=== PATIENT | female | born 1970 | race Caucasian/White ===

== ENCOUNTER → 2018-04-07 14:55 | Outpatient (CLI) | payer OTHER, MEDICAID, SELFPAY ==
--- NOTE | 2018-04-07 | DI.RAD.S_ITS ---
PROCEDURE: XR LUMBAR SPINE 2-3V INDICATIONS: BACK PAIN TECHNIQUE: 3 views of the lumbar spine were acquired. COMPARISON: None. FINDINGS: Bones: Transitional anatomy with 4 [id number] vertebrae and sacralization of the L5 vertebral body. There is normal bony alignment. There is approximately 16? of convex right thoracolumbar spine scoliosis. No vertebral body compression fractures. No suspicious bony lesions. Severe L4-L5 degenerative changes are noted. Moderate L4-L5 facet arthropathy. Soft tissues: Overlying bowel gas pattern is normal. No suspicious soft tissue calcifications. IMPRESSION: 1. Transitional anatomy with 4 lumbar type nonrib-bearing vertebral bodies and sacralization of the L5 vertebral body. 2. Convex right of lumbar spine scoliosis. 3. L4-L5 degenerative disc disease and facet arthropathy. Dictated by: Karen Beckham MD, PhD on 04/07/2018 at 14:31 Approved by: Karen Beckham MD, PhD on 04/07/2018 at 14:38
== END ==
PROVIDERS: Visit Provider Family Medicine
DX: M54.5 Low back pain (principal); M41.86 Other forms of scoliosis, lumbar region; M51.36 Other intervertebral disc degeneration, lumbar region; M47.817 Spondylosis without myelopathy or radiculopathy, lumbosacral region; M43.27 Fusion of spine, lumbosacral region
CPT/HCPCS: 72100

== ENCOUNTER 2019-11-15 19:58 | Emergency (ER) | payer OTHER, MEDICAID, SELFPAY ==
[2019-11-15 20:10] VITALS: BP 108/74; PULSE 76; RESP 18; TEMP 37.2; O2SAT 97
--- NOTE | 2019-11-15 20:25 | DI.CT.S_ITS ---
PROCEDURE: CT LUMBAR SPINE WO CON INDICATIONS: fell off a horse w/o helmet, lumbar and pelvis pain TECHNIQUE: Noncontrast 3 mm thick sections acquired from the T12 level to the sacrum. Sagittal and coronal reformats were constructed. For radiation dose reduction, the following was used: automated exposure control. COMPARISON: [facility], CT, ABDOMEN/PELVIS WITH CONTRAST, 11/01/2015, 16:40. [facility], CR, XR LUMBAR SPINE 2-3V, 04/07/2018, 14:38. FINDINGS: Image quality: Excellent. Bones: There is normal bony alignment. No acute vertebral body compression fractures. No suspicious lytic or blastic bony lesions. Central spinal caliber is of normal overall caliber. No pars defects. Note is made of a moderate to moderately severe degree of degenerative disc disease at L4-5 and L5-S1. No compression fracture is associated. Soft tissues: No retroperitoneal masses or hematomas. Visualized aorta is normal in caliber. IMPRESSION: No trauma found. Moderate to moderately severe low lumbosacral spine degenerative disc disease without subluxation. Dictated by: Atul Brady M.D. on 11/15/2019 at 21:17 Approved by: Atul Brady M.D. on 11/15/2019 at 21:19
--- NOTE | 2019-11-15 20:25 | DI.RAD.S_ITS ---
PROCEDURE: XR HUMERUS LT 2V INDICATIONS: fell off a horse w/o helmet, left upper arm pain, hematoma TECHNIQUE: 2 views of the humerus were acquired. COMPARISON: None. FINDINGS: Bones: No fractures or dislocations. No suspicious bony lesions. Soft tissues: No suspicious soft tissue calcifications. IMPRESSION: No trauma found. Dictated by: Atul Brady M.D. on 11/15/2019 at 21:17 Approved by: Atul Brady M.D. on 11/15/2019 at 21:17
--- NOTE | 2019-11-15 20:25 | DI.CT.S_ITS ---
PROCEDURE: CT CERVICAL SPINE WO CON INDICATIONS: fell off a horse w/o helmet, mid cervical spine tenderness TECHNIQUE: Noncontrast 3 mm thick sections acquired from the skull base to the T4 level. Sagittal and coronal reformats were then constructed. For radiation dose reduction, the following was used: automated exposure control, adjustment of mA and/or kV according to patient size. COMPARISON: [facility], , CHEST 2 VIEW, 10/18/2015, 12:18. FINDINGS: Image quality: Excellent. Bones: No fractures or dislocations. Visualized superior ribs are intact. Soft tissues: Prevertebral soft tissues are normal in thickness. No paravertebral hematomas. No apical pneumothoraces. IMPRESSION: No trauma found. Dictated by: Atul Brady M.D. on 11/15/2019 at 21:19 Approved by: Atul Brady M.D. on 11/15/2019 at 21:21
--- NOTE | 2019-11-15 20:25 | DI.CT.S_ITS ---
PROCEDURE: CT HEAD/BRAIN WO CON INDICATIONS: fell off a horse w/o helmet, blurred vision TECHNIQUE: Noncontrast 4.5 mm thick angled axial sections acquired from the foramen magnum to the vertex, with coronal and sagittal reformats. For radiation dose reduction, the following was used: automated exposure control, adjustment of mA and/or kV according to patient size. COMPARISON: None. FINDINGS: Image quality: Excellent. CSF spaces: Basal cisterns are patent. No extra-axial fluid collections. Ventricles are normal in size and shape. Brain: No midline shift. No intracranial masses or hemorrhage. Gutierrez-white matter interface is normal. Skull and face: Calvarium and visualized facial bones are intact, without suspicious lesions. Sinuses: Visualized sinuses and mastoids are clear. IMPRESSION: No fracture found, no brain injury identified. No intracranial hemorrhage. The source of blurred vision is not seen. Dictated by: Atul Brady M.D. on 11/15/2019 at 20:58 Approved by: Atul Brday M.D. on 11/15/2019 at 20:58
--- NOTE | 2019-11-15 20:33 | ED.HEATRA ---
HPI - Head Injury <AMY Guerrero - Last Filed: 11/15/19 22:17> General Chief complaint: Head Injury Stated complaint: possible concussion Time Seen by Provider: 11/15/19 20:06 Source: patient Mode of arrival: Wheelchair Limitations: no limitations History of Present Illness HPI Narrative: This is a 49 year female, nonsmoker, who presents to ED with mother after she fell off a horse which is about 2 ft. height at 1830 tonight while on helmeted. Patient is not on anticoagulants. Patient landed on her left side to avoid falling directly on her back and she has history of chronic back pain and failed back surgery in the past. Patient denies losing consciousness but reports blurred vision and mid neck tenderness. Patient denies vomiting but reports nausea. Patient also reports left upper arm discomfort with bruise. She reports severe back pain and hip and pelvis pain. Patient reports after she fell off the horse, her horse picked her up and carried her to home to the back and she called help and her mother assist into home. Patient daily takes methadone, clonazepam. LMP about 1.5 months ago and states it has been irregular. Patient states no chance for and declined urine test prior x-ray/CT test. Related Data Home Medications Medication Instructions Recorded Confirmed CARISOPRODOL (Soma) 0 PO * [facility] DOSE/FREQUENCY #0 08/20/07 Oxycodone (Oxycontin) 0 PO * UK DOSE/FREQUENCY #0 08/20/07 Oxycodone (Roxicodone) 0 PO * [place] DOSE/FREQUENCY #0 08/20/07 Allergies Allergy/AdvReac Type Severity Reaction Status Date / Time cortisone [CORTISONE] Allergy Unknown UNABLE TO Unverified 09/15/17 13:10 SLEEP, GETS CRAZY Sulfa (Sulfonamide Allergy Unknown SORES IN Unverified 09/15/17 13:10 Antibiotics) THE MOUTH [SULFA (SULFONAMIDE ANTIBIOTICS)] Review of Systems <AMY Guerrero Last Filed: 11/15/19 22:17> Review of Systems Narrative: General: Denies fever, chills, fatigue, malaise, sweats. HEENT: Denies sinus pain, ear pain, sore throat, difficulty swallowing, dizziness. Respiratory: Denies dyspnea, cough, wheezing, hemoptysis, sputum. Cardiovascular: Denies chest pain, palpitations, orthopnea, edema. Gastrointestinal: Denies (+) nausea, vomiting, abdominal pain, diarrhea, constipation, melena. : Denies dysuria, frequency, incontinence, hematuria, urinary retention. Musculoskeletal: See HPI Skin: Denies rash, skin lesions, or other. Bruise to left deltoid. Neurologic: Reports blurred vision. Denies weakness, headache, numbness, change in speech, confusion, seizures, incoordination. Psychiatric: No concerning psychosocial issues. 12-point review of systems is negative except for those stated above. Patient History <AMY Guerrero - Last Filed: 11/15/19 22:17> Medical History Chronic back pain (Acute) Surgical History Previous back surgery (Acute) Social History Smoking Status: Never smoker Smoking Status: Never smoker Substance Use Type: does not use Exam <AMY Guerrero - Last Filed: 11/15/19 22:17> Narrative Exam Narrative: GEN: Alert, oriented x 3, thin appearing, and in no acute distress. Head: Normal cephalic, atraumatic. No scalp or temporal tenderness, palpable mass or rash. No step-offs. EYES: Pupils are equal, round, and reactive to light and accommodation. Pupil 3 mm bilaterally. Extraocular muscles are intact bilaterally. There is no subconjunctival hemorrhage, exudate and sclera non-icteric. ENT: Bilateral auditory canals without drainage and tympanic membranes clear. Hearing grossly intact. Nose without bleeding, purulent discharge or deviation. Facial sinuses nontender to palpate. Mucous membrane moist, no mucosal lesion. Throat without erythema, tonsillar hypertrophy or exudate. Uvula in midline, airway patent. Neck: Trachea in midline. Tender to palpate mid cervical. No JVD, no step-offs. No masses or thyroid megaly. Supple, non-tender and no meningeal signs. CARDIAC: Normal regular rate and rhythm without murmurs, gallops, or rubs. No chest wall tenderness. No peripheral edema, cyanosis or pallor. Capillary refill is less than 2 seconds. RESPIRATORY: Lungs are clear to auscultate bilaterally. No cough, wheezes, rales, or rhonchi. No stridor, respiratory distress, increase work of breathing, or accessary muscle used. ABD: Abdomen soft, nontender and non-distended. No guarding or rebound tenderness to palpate. Bowel sounds are normal in all 4 quadrants. There is no palpable masses or organomegaly. EXT: Full ROM of all extremities with no loss of sensation, strength, effusion or edema. Tender to palpate left mid upper arm with ecchymosis in left deltoid. SKIN: Warm, dry, pale in skin color. Abrasion in left lumbar region which is tender to palpate BACK: Exquisite discomfort on low back worsening in left side in spinous and paraspinous region. NEUROLOGICAL: Alert and oriented to place, time and person. Sensation and motor function intact bilaterally. No facial droops, dysphasia. PSYCHIATRIC: Good judgement and reason, without hallucinations, abnormal affect or abnormal behaviors during the examination. Initial Vital Signs Initial Vital Signs: Vital Signs Temperature 98.9 F 11/15/19 20:10 Pulse Rate 76 11/15/19 20:10 Respiratory Rate 18 11/15/19 20:10 Blood Pressure 108/74 11/15/19 20:10 Pulse Oximetry 97 11/15/19 20:10 <Kaylynn Cisneros MD - Last Filed: 11/16/19 02:43> Initial Vital Signs Initial Vital Signs: Vital Signs Temperature 98.9 F 11/15/19 20:10 Pulse Rate 76 11/15/19 20:10 Respiratory Rate 18 11/15/19 20:10 Blood Pressure 108/74 11/15/19 20:10 Pulse Oximetry 97 11/15/19 20:10 Scores <AMY Guerrero - Last Filed: 11/15/19 22:17> GCS [place] coma scale eye opening: Spontaneous [place] coma scale verbal response: Orientated [place] coma scale motor response: Obey commands [place] coma scale total score: 15 Nexus Score for C-Spine Focal Neurologic deficit present: No Midline spinal tenderness present: Yes Altered level of conciousness present: No Intoxication present: No Distracting Injury Present: Yes Nexus Criteria for C-spine: 2 PECARN GCS less than or equal to 14, palpable skull fracture or signs of AMS: No LOC, or vomiting, or severe mechanism of injury, or severe headache: Yes Multiple findings or worsening symptoms: Yes Course <Ruel AMY Felix - Last Filed: 11/15/19 22:17> Orders Ordered: ED Orders 11/15/19 20:22 Basic Metabolic Panel Stat Complete Blood Count AUTO DIFF Stat Partial Thromboplastin Time Stat Prothrombin Time INR Stat 11/15/19 20:25 CT cervical spine wo con Stat CT head/brain wo con Stat CT lumbar spine wo con Stat XR humerus LT 2V Stat 11/15/19 20:37 XR hip w pel if done BILAT 2V Stat Discontinued Medications Morphine Sulfate (Morphine) 2 mg IV NOW ONE Stop: 11/15/19 20:33 Last Admin: 11/15/19 20:40 Dose: 2 mg Documented by: JERRY Morphine Sulfate (Morphine) 2 mg IV NOW ONE Stop: 11/15/19 21:58 Last Admin: 11/15/19 22:07 Dose: 2 mg Documented by: YULIANA Ondansetron HCl (Zofran) 4 mg IV NOW ONE Stop: 11/15/19 20:32 Last Admin: 11/15/19 20:44 Dose: 4 mg Documented by: JERRY Vital Signs Vital signs: Vital Signs - 8 hr 11/15/19 20:10 11/15/19 21:11 11/15/19 22:45 Temperature 98.9 F Pulse Rate 76 64 66 Respiratory Rate 18 14 14 Blood Pressure 108/74 122/67 Blood Pressure [Right Arm] 118/71 Pulse Oximetry 97 97 99 <Kaylynn Cisneros MD - Last Filed: 11/16/19 02:43> Orders Ordered: ED Orders 11/15/19 20:22 Basic Metabolic Panel Stat Complete Blood Count AUTO DIFF Stat Partial Thromboplastin Time Stat Prothrombin Time INR Stat 11/15/19 20:25 CT cervical spine wo con Stat CT head/brain wo con Stat CT lumbar spine wo con Stat XR humerus LT 2V Stat 11/15/19 20:37 XR hip w pel if done BILAT 2V Stat Discontinued Medications Morphine Sulfate (Morphine) 2 mg IV NOW ONE Stop: 11/15/19 20:33 Last Admin: 11/15/19 20:40 Dose: 2 mg Documented by: JERRY Morphine Sulfate (Morphine) 2 mg IV NOW ONE Stop: 11/15/19 21:58 Last Admin: 11/15/19 22:07 Dose: 2 mg Documented by: YULIANA Ondansetron HCl (Zofran) 4 mg IV NOW ONE Stop: 11/15/19 20:32 Last Admin: 11/15/19 20:44 Dose: 4 mg Documented by: JERRY Vital Signs Vital signs: Vital Signs - 8 hr 11/15/19 20:10 11/15/19 21:11 11/15/19 22:45 Temperature 98.9 F Pulse Rate 76 64 66 Respiratory Rate 18 14 14 Blood Pressure 108/74 122/67 Blood Pressure [Right Arm] 118/71 Pulse Oximetry 97 97 99 MDM - Head Injury <AMY Guerrero - Last Filed: 11/15/19 22:17> Differential Diagnosis Differential diagnosis: Likely concussion without loss of consciousness, closed head injury and other (C-spine fracture, neck strain, lumbar fracture, lumbar contusion, pelvis contusion, pelvis fracture) Lab Data Result diagrams: 11/15/19 20:22 11/15/19 20:22 Labs: Lab Results 11/15/19 11/15/19 11/15/19 Range/Units 20:22 20:22 20:22 WBC 12.3 H (4.5-11.0) X10^3/uL RBC 3.51 L (4.0-5.2) X10^6/uL Hgb 10.5 L (12.0-16.0) g/dL Hct 31.1 L (36-46) % MCV 88.6 (80-100) fL MCH 29.9 (26-34) PG MCHC 33.7 (30-36) % RDW 13.0 (11.6-14.8) % Plt Count 189 (150-400) X10^3/uL Neut % (Auto) 76.6 H (50-75) % Lymph % (Auto) 15.6 L (25-40) % [place] % (Auto) 4.0 (3-14) % Eos % (Auto) 3.5 (2-4) % Baso % (Auto) 0.3 (0-2) % Neut # (Auto) 9400 H (2151-6123) /uL Lymph # (Auto) 1900 (1844-8803) /uL [place] # (Auto) 500 (0-900) /uL Eos # (Auto) 400 (0-450) /uL Baso # (Auto) 0 (0-100) /uL PT 11.4 (10.1-12.7) SECONDS INR 1.0 (0.9-1.3) APTT 31 (26.4-36.2) SECONDS Sodium 136 L (137-145) mmol/L Potassium 4.1 (3.4-5.1) mmol/L Chloride 101 (98-107) mmol/L Carbon Dioxide 30 (22-32) mmol/L BUN 12 (7-17) mg/dL Creatinine 0.88 (0.52-1.04) mg/dL Estimated GFR > 60.0 (>60) mL/min BUN/Creatinine Ratio 13.6 (6-22) Glucose 120 H (70-100) mg/dL Calcium 9.6 (8.4-10.2) mg/dL [facility] Narrative Medical decision making narrative: Rigid C spine collar has been applied upon arrival to ED during triage due to mechanism of injury and patient's symptoms. Since patient complains of blurred vision, mid cervical spine tenderness to palpate, fall off the horse without a helmet, obtained C-spine and head CT which indicates negative findings. Left humerus without acute findings such as fractures. Lumbar spine CT and bilateral hip/pelvis do not show subluxation, compression fractures, retroperitoneum masses or hematoma. Patient was unable to provide urine sample but was able to void in ED. patient reports no hematuria was noted. Patient was medicated with small dose of morphine while in ED to help with discomfort. Patient discharged to home with soft C-collar for support since she had mild discomfort with flexion and rotation of her neck. There is no increasing tingling or numbness in upper extremities. Patient was able to walk shoulder status with standby assistance. Advised to use walker/chair that she has as needed for support. Patient is slightly anemic of H&H of 10.5/31.1 and she has known history of anemia and she is currently taking vitamin D and iron to treated this. H&H in 10/2015 was 9.2/27.1. Otherwise, chemistry and coags tests were unremarkable. Advised to use her medication for pain management and diclofenac gel, Tylenol, lidocaine patch as needed. Return precautions were discussed with patient and patient verbalized understanding and agreement with treatment plan. <Kaylynn Cisneros MD - Last Filed: 11/16/19 02:43> Lab Data Labs: Lab Results 11/15/19 11/15/19 11/15/19 Range/Units 20:22 20:22 20:22 WBC 12.3 H (4.5-11.0) X10^3/uL RBC 3.51 L (4.0-5.2) X10^6/uL Hgb 10.5 L (12.0-16.0) g/dL Hct 31.1 L (36-46) % MCV 88.6 (80-100) fL MCH 29.9 (26-34) PG MCHC 33.7 (30-36) % RDW 13.0 (11.6-14.8) % Plt Count 189 (150-400) X10^3/uL Neut % (Auto) 76.6 H (50-75) % Lymph % (Auto) 15.6 L (25-40) % [place] % (Auto) 4.0 (3-14) % Eos % (Auto) 3.5 (2-4) % Baso % (Auto) 0.3 (0-2) % Neut # (Auto) 9400 H (9251-6748) /uL Lymph # (Auto) 1900 (9521-0040) /uL [place] # (Auto) 500 (0-900) /uL Eos # (Auto) 400 (0-450) /uL Baso # (Auto) 0 (0-100) /uL PT 11.4 (10.1-12.7) SECONDS INR 1.0 (0.9-1.3) APTT 31 (26.4-36.2) SECONDS Sodium 136 L (137-145) mmol/L Potassium 4.1 (3.4-5.1) mmol/L Chloride 101 (98-107) mmol/L Carbon Dioxide 30 (22-32) mmol/L BUN 12 (7-17) mg/dL Creatinine 0.88 (0.52-1.04) mg/dL Estimated GFR > 60.0 (>60) mL/min BUN/Creatinine Ratio 13.6 (6-22) Glucose 120 H (70-100) mg/dL Calcium 9.6 (8.4-10.2) mg/dL Discharge Plan Departure Patient Disposition: Home Clinical Impression: Fall from horse Qualifiers: Encounter type: initial encounter Qualified Code(s): V80.010A - Animal-rider injured by fall from or being thrown from horse in noncollision accident, initial encounter Closed head injury Qualifiers: Encounter type: initial encounter Qualified Code(s): S09.90XA - Unspecified injury of head, initial encounter Neck strain Qualifiers: Encounter type: initial encounter Qualified Code(s): S16.1XXA - Strain of muscle, fascia and tendon at neck level, initial encounter Contusion of left upper arm Qualifiers: Encounter type: initial encounter Qualified Code(s): S40.022A - Contusion of left upper arm, initial encounter Back contusion Qualifiers: Encounter type: initial encounter Laterality: unspecified laterality Qualified Code(s): S20.229A - Contusion of unspecified back wall of thorax, initial encounter Discharge Date/Time: 11/15/19 22:45 Instructions: DI for Low Back Pain, DI for Contusion, DI for Closed Head Injury, DI for Neck Sprain Activity Restrictions/Additional Instructions: You have been diagnosed with [fall from horse with contusion to left upper arm, low back, hip/pelvis, neck strain and closed head injury. CT test of head, C-spine, lumbar spine and x-ray test of left upper arm and hip/pelvis without acute findings such as fractures, dislocation or subluxation. You are anemic but actually your blood count is better than your previous visits to ED. otherwise, chemistry test and coag tests were unremarkable.]. What to do: *Take your medications as directed. You can use your pain medications and muscle relaxant that you have. You can add Tylenol as needed in addition. Tylenol 650 mg up to 3 to 4 times a day as needed for pain. You can use Voltaren gel on painful areas. You can also use lidocaine patch/gel that you have for pain as well on her back. You can use soft collar on her neck for comfort and support as needed. Tr wrap on her left upper arm for support. Please keep your skin wounds clean, use antibiotic ointment, cover with Band-Aid. Watch for infection. *Follow up with your primary care provider in 2-3 days, call for an appointment. Let them know you were seen in the ED and that we asked you to be seen in follow up. *Return to ED if you have any new, worsening, or concerning symptoms, such as [chest pain, breathing difficulty, unable to tolerate fluids, blood in your urine, fever, or any acute concerns]. Prescriptions: No Action CARISOPRODOL (Soma) 0 PO * [facility] DOSE/FREQUENCY Qty: 0 RF: 0 Oxycodone (Oxycontin) 0 PO * [facility] DOSE/FREQUENCY Qty: 0 RF: 0 Oxycodone (Roxicodone) 0 PO * [facility] DOSE/FREQUENCY Qty: 0 RF: 0 Referrals: Ethan Gamino DO [Non-Staff] - <Kaylynn Cisneros MD - Last Filed: 11/16/19 02:43> Cosign ED Attending Cosfransiscoature Attestation: I was immediately available in the department for consultation throughout this patient's visit. I agree with documentation as above. Kaylynn Cisneros MD
--- NOTE | 2019-11-15 20:37 | DI.RAD.S_ITS ---
PROCEDURE: XR HIP W PEL IF DONE BILAT 2V INDICATIONS: fell off a horse w/o helmet, c/o bilateral pelvis pain TECHNIQUE: AP pelvis with lateral view(s) of the bilateral hip(s). COMPARISON: None. FINDINGS: Bones: No fractures or dislocations. Pelvic ring appears intact. No suspicious bony lesions. Soft tissues: The visualized bowel gas pattern is normal. No suspicious soft tissue calcifications. IMPRESSION: No trauma found. Please note that MR scanning provides more accurate assessment for hidden pelvic trauma and could be obtained if clinically indicated. Dictated by: Atul Brady M.D. on 11/15/2019 at 21:15 Approved by: Atul Brady M.D. on 11/15/2019 at 21:16
[2019-11-15 20:38] LABS: Add Manual Diff / Slide Review NO; Basophils Absolute Auto 0 /uL (0-100); Basophils Percent Auto 0.3 % (0-2); Eosinophils Absolute Auto 400 /uL (0-450); Eosinophils Percent Auto 3.5 % (2-4); Hematocrit 31.1 % (36-46); Hemoglobin 10.5 g/dL (12.0-16.0); Lymphocytes Absolute Auto 1900 /uL (1100-4500); Lymphocytes Percent Auto 15.6 % (25-40); Mean Corpuscular HGB Conc 33.7 % (30-36); Mean Corpuscular Hemoglobin 29.9 PG (26-34); Mean Corpuscular Volume 88.6 fL (80-100); Monocytes Absolute Auto 500 /uL (0-900); Neutrophils Absolute Auto 9400 /uL (1500-7000); Neutrophils Percent Auto 76.6 % (50-75); Platelet Count 189 X10^3/uL (150-400); Red Blood Cell Count 3.51 X10^6/uL (4.0-5.2); White Blood Cell Count 12.3 X10^3/uL (4.5-11.0)
[2019-11-15 20:39] LABS: Prothrombin Time 11.4 SECONDS (10.1-12.7)
[2019-11-15] MEDS: MORPHINE 2 MG/ML INJ IV ×2 (20:40→22:07)
[2019-11-15 20:41] LABS: PTT Partial Thromboplastin Tim 31 SECONDS (26.4-36.2)
[2019-11-15 20:44] LABS: BUN Creatinine Ratio 13.6 (6-22); Blood Urea Nitrogen 12 mg/dL (7-17); Calcium 9.6 mg/dL (8.4-10.2); Carbon Dioxide 30 mmol/L (22-32); Chloride 101 mmol/L (98-107); Estimated Glomerular Filt Rate > 60.0 mL/min (>60); Glucose 120 mg/dL (70-100); HEMOLYSIS 32 (0-50); Potassium 4.1 mmol/L (3.4-5.1); Sodium 136 mmol/L (137-145)
[2019-11-15] MEDS: ONDANSETRON 4 MG/2 ML INJ IV (20:44)
[2019-11-15 21:11] VITALS: BP 118/71; PULSE 64; RESP 14; O2SAT 97
[2019-11-15 22:45] VITALS: BP 122/67; PULSE 66; RESP 14; O2SAT 99
== END 2019-11-15 22:45 | disposition home or self-care (01) ==
PROVIDERS: Emergency Provider Nurse Practitioner Family
DX: S09.90XA Unspecified injury of head, initial encounter (principal); S16.1XXA Strain of muscle, fascia and tendon at neck level, initial encounter; S40.022A Contusion of left upper arm, initial encounter; S20.229A Contusion of unspecified back wall of thorax, initial encounter; V80.010A Animal-rider injured by fall from or being thrown from horse in noncollision accident, initial encounter
CPT/HCPCS: 36415; 70450; 72125; 72131; 73060; 73521; 80048; 85025; 85610; 85730; 96374; 96375; 96376; 99284; J2270; J2405

== ENCOUNTER → 2020-11-07 11:50 | Outpatient (CLI) | payer OTHER, MEDICAID, SELFPAY ==
[2020-11-07 12:53] LABS: Add Manual Diff / Slide Review NO; Basophils Absolute Auto 100 /uL (0-100); Eosinophils Absolute Auto 800 /uL (0-450); Eosinophils Percent Auto 11.5 % (2-4); Hematocrit 34.2 % (36-46); Hemoglobin 11.3 g/dL (12.0-16.0); Lymphocytes Absolute Auto 1800 /uL (1100-4500); Lymphocytes Percent Auto 27.7 % (25-40); Mean Corpuscular HGB Conc 33.1 % (30-36); Mean Corpuscular Volume 90.7 fL (80-100); Monocytes Absolute Auto 400 /uL (0-900); Monocytes Percent Auto 6.2 % (3-14); Neutrophils Absolute Auto 3500 /uL (1500-7000); Neutrophils Percent Auto 53.6 % (50-75); Platelet Count 221 X10^3/uL (150-400); Red Blood Cell Count 3.77 X10^6/uL (4.0-5.2); Red Cell Distribution Width 13.3 % (11.6-14.8); White Blood Cell Count 6.6 X10^3/uL (4.5-11.0)
[2020-11-07 13:32] LABS: Alanine Aminotransferase 11 IU/L (<35); Albumin 3.9 g/dL (3.5-5.0); Albumin Globulin Ratio 1.6 (1.0-2.8); Alkaline Phosphatase 63 U/L (38-126); Aspartate Aminotransferase 26 IU/L (14-36); BUN Creatinine Ratio 9.1 (6-22); Bilirubin Total 0.6 mg/dL (0.2-1.3); Blood Urea Nitrogen 7 mg/dL (7-17); Calcium 9.8 mg/dL (8.4-10.2); Carbon Dioxide 28 mmol/L (22-32); Chloride 104 mmol/L (98-107); Cholesterol 180 mg/dL (140-199); Estimated Glomerular Filt Rate > 60.0 mL/min (>60); Globulin 2.5 g/dL (1.7-4.1); Glucose 120 mg/dL (70-100); HDL Cholesterol 69 mg/dL (40-60); HEMOLYSIS < 15 (0-50); LDL Cholesterol Calculated 90 mg/dL (<100); Potassium 4.2 mmol/L (3.4-5.1); Sodium 139 mmol/L (137-145); Total Protein 6.4 g/dL (6.3-8.2); Triglycerides 107 mg/dL (35-150)
[2020-11-07 15:20] LABS: Free T3, Triiodothyronine Free 3.39 pg/mL (2.77-5.27); Free T4, Direct Thyroxine 1.12 ng/dL (0.78-2.19)
[2020-11-07 21:26] LABS: Thyroid Stimulating Hormone 1.37 uIU/mL (0.47-4.68)
[2020-11-08 03:25] LABS: Vitamin D 25 Hydroxy (D3) 19.8 ng/mL (30.0-100.0)
== END ==
PROVIDERS: PCP Family Medicine; Referring Provider Family Medicine; Visit Provider Family Medicine
DX: R63.4 Abnormal weight loss (principal); Z13.29 Encounter for screening for other suspected endocrine disorder; Z76.89 Persons encountering health services in other specified circumstances
CPT/HCPCS: 36415; 80053; 80061; 82306; 84439; 84443; 84481; 85025

== ENCOUNTER 2022-01-08 16:00 | Inpatient (IN) | payer MEDICAID, SELFPAY ==
[2022-01-08 16:11] VITALS: BP 116/70; PULSE 95; RESP 18; TEMP 37.1; O2SAT 97; BMI 16.9
--- NOTE | 2022-01-08 16:19 | DI.RAD.S_ITS ---
PROCEDURE: XR HIP W PEL IF DONE RT 2V INDICATIONS: acute pain, unable to stand TECHNIQUE: AP pelvis with lateral view(s) of the right hip(s). COMPARISON: [facility], , XR HIP W PEL IF DONE BILAT 2V, 11/15/2019, 20:31. FINDINGS: Bones: There is a displaced right subcapital femoral neck fracture. There is no dislocation at the hip joint. Remaining osseous structures appear intact. Soft tissues: The visualized bowel gas pattern is normal. No suspicious soft tissue calcifications. IMPRESSION: Subcapital right femoral neck fracture. Dictated by: Darby Krishnan M.D. on 01/08/2022 at 16:52 Approved by: Darby Krishnan M.D. on 01/08/2022 at 16:53
--- NOTE | 2022-01-08 17:04 | ED.LOWEXIN ---
HPI - Extremity Injury (Lower) <Silvia Blanton, [facility] - Last Filed: 01/08/22 18:29> General Chief Complaint: Extremity Injury, Lower Stated Complaint: Rt side hip injury Time Seen by Provider: 01/08/22 17:04 Source: patient Mode of arrival: Wheelchair History of Present Illness HPI Narrative: This is a 51-year-old female with history of chronic pain and is on methadone 4 mg daily, history also of osteoarthritis, osteopenia and osteoporosis, fibromyalgia, GERD, who presents to the emergency department complaining of right hip pain after she fell down last night. Patient reports that she has chronic right knee pain, states that she stepped in a hole two days ago in the field and had sciatica in her right leg and some low back pain. She states that yesterday due to this sciatica her right knee when out and she fell down onto her right hip and felt a crack and pain immediately. She states that she is unable to bear weight on it, denies any sensation changes in her foot including numbness and tingling, denies any open wound, states that she is concerned that it is broken because of the loud crack. Patient states that her pain is mildly under control, it is painful with all movements, she denies any head injury or any incontinence, she denies any muscle weakness in her leg other than significant right hip pain. Related Data Home Medications Medication Instructions Recorded Confirmed lidocaine patch 1 patch transdermal DAILY 11/07/20 01/08/22 Previous Rx's Medication Instructions Recorded Massage therapy #6 ea 11/07/20 fluticasone propionate 50 1 spray intranasal BID #16 grams 12/24/20 mcg/actuation nasal spray,suspension (Flonase Allergy Relief) Disabled Parking Permit #1 ea 02/11/21 pantoprazole 40 mg tablet,delayed 40 mg PO DAILY #90 tabs 03/05/21 release sumatriptan succinate 50 mg tablet 50 mg PO ONCE #20 tabs 03/19/21 (Imitrex) clonazepam 1 mg tablet See Rx Instructions .Route 09/03/21 .COMPLEX #90 tabs cyclobenzaprine 10 mg tablet See Rx Instructions .Route 12/25/21 .COMPLEX #90 tabs methadone 10 mg tablet See Rx Instructions .Route 12/25/21 .COMPLEX #120 tabs aspirin 81 mg tablet,delayed 81 mg PO BID 40 days #80 tabs 01/11/22 release hydromorphone 4 mg tablet 4 mg PO Q4HR PRN Pain, Severe 01/11/22 (7-10) 7 days #30 tabs Allergies Allergy/AdvReac Type Severity Reaction Status Date / Time Sulfa (Sulfonamide Allergy Unknown SORES IN Verified 01/09/22 18:24 Antibiotics) THE MOUTH [SULFA (SULFONAMIDE ANTIBIOTICS)] cortisone [CORTISONE] AdvReac Unknown UNABLE TO Verified 01/09/22 18:24 SLEEP, GETS CRAZY Review of Systems <AMY Faustin - Last Filed: 01/08/22 18:29> Review of Systems Narrative: General: denies fever, chills Head/Neck: denies headache, neck pain Eyes: denies visual changes, eye pain Cardio: denies chest pain, palpitations Respiratory: denies shortness of breath, cough GI: denies abdominal pain, nausea, vomiting, or diarrhea : denies dysuria, hematuria or flank pain MSK: Patient endorses right hip pain which is severe compared to baseline, denies any sciatica from her low back pain at this time. Skin: denies rash, itching or wound Neuro: denies numbness, tingling, dizziness Patient History <AMY Faustin - Last Filed: 01/08/22 18:29> Medical History Allergies Anemia Ankle pain Anxiety disorder Cachexia Cervical somatic dysfunction Cervical spine pain Chronic back pain Chronic pain due to injury Colitis Cranial somatic dysfunction CRPS (complex regional pain syndrome type II) Fibromyalgia Fractures GERD (gastroesophageal reflux disease) GI bleeding Irritable bowel syndrome Lumbar region somatic dysfunction Migraines Osteoarthritis Osteoporosis Pelvic somatic dysfunction Peripheral neuropathy PTSD (post-traumatic stress disorder) Sacral pain Sacral region somatic dysfunction Scoliosis Screening for thyroid disorder Segmental and somatic dysfunction of abdomen and other regions Shoulder pain Somatic dysfunction of lower extremity Thoracic region somatic dysfunction Ulcerative colitis Weight loss, abnormal Surgical History Anesthesia History of bladder surgery Previous back surgery (~1997) Family History Father History of heart disease Stroke Grandfather Cancer Stroke Grandmother Diabetes mellitus Hyperlipidemia Hypertension Stroke Grandfather Cancer Mental health problem Grandmother Cancer Social History household members: family Smoking Status: Never smoker alcohol intake: never Smoking Status: Never smoker Substance Use Type: does not use Exam <Silvia Blanton [employer] - Last Filed: 01/08/22 18:29> Narrative Exam Narrative: Independently reviewed vitals signs and nursing notes. General: cooperative, comfortable, in no acute distress, well groomed Head: atraumatic, symmetrical facial expressions Neck: supple Eyes: equal round and reactive, EOMI, conjunctiva normal Nose: nares patent, no rhinorrhea Mouth/Throat: moist mucus membranes Cardiovascular: regular rate and rhythm, no peripheral edema, warm extremities Respiratory: normal effort, able to speak in complete sentences, no audible wheezing, stridor, or rales. No retractions or tachypnea. GI: abdomen soft, nontender to palpation, nondistended, no masses, no exquisite tenderness with exam, without guarding or rebound. MSK: Patient lying in bed, moves all extremities except for right hip she does not want to move due to pain. She is neurovascularly intact distal to her right hip injury, PT and DP pulses are both 2+, cap refills brisk, her foot is warm. She does not have any open wound or ecchymosis, she has tenderness to palpation over the lateral aspect of her right hip, some tenderness over the anterior of the right side of her pelvis, denies any pain to the left side of her pelvis and with all left hip movements. She has full range of motion of her other extremities without deficit but her right leg is limited due to pain in her hip. Skin: brisk capillary refill, no rash, no erythema Neuro: normal speech and cognition, A&O x3 Psych: mental status is grossly normal, congruent mood, normal affect, pleasant and cooperative Initial Vital Signs Initial Vital Signs: Vital Signs Temperature 98.7 F 01/08/22 16:11 Pulse Rate 95 H 01/08/22 16:11 Respiratory Rate 18 01/08/22 16:11 Blood Pressure 116/70 01/08/22 16:11 Pulse Oximetry 97 01/08/22 16:11 Oxygen Delivery Method 01/08/22 16:11 <Andree Crain DO - Last Filed: 01/16/22 08:15> Initial Vital Signs Initial Vital Signs: Vital Signs Temperature 98.7 F 01/08/22 16:11 Pulse Rate 95 H 01/08/22 16:11 Respiratory Rate 18 01/08/22 16:11 Blood Pressure 116/70 01/08/22 16:11 Pulse Oximetry 97 01/08/22 16:11 Oxygen Delivery Method 01/08/22 16:11 Course <AMY Faustin - Last Filed: 01/08/22 18:29> Orders Ordered: Discontinued Medications Acetaminophen (Acetaminophen 325 Mg Tablet) 650 mg PO Q6HR PRN PRN Reason: Fever/Mild Pain (1-3) Acetaminophen (Acetaminophen 325 Mg Tablet) 650 mg PO Q6HR [facility] Last Admin: 01/11/22 11:20 Dose: 650 mg Documented By: Admin: 01/11/22 05:58 Dose: 650 mg Documented By: Admin: 01/10/22 23:35 Dose: 650 mg Documented By: Admin: 01/10/22 17:16 Dose: 650 mg Documented By: Admin: 01/10/22 11:42 Dose: 650 mg Documented By: Admin: 01/10/22 05:02 Dose: 650 mg Documented By: Admin: 01/10/22 00:36 Dose: 650 mg Documented By: JEAN Aspirin (Aspirin Ec 81 Mg Tablet) 81 mg PO BID [facility] Last Admin: 01/11/22 08:23 Dose: 81 mg Documented By: Admin: 01/10/22 20:23 Dose: 81 mg Documented By: Admin: 01/10/22 09:34 Dose: 81 mg Documented By: Admin: 01/09/22 21:19 Dose: 81 mg Documented By: JEAN Bupivacaine HCl (Bupivacaine 0.5% (Pf) Vial) 30 ml INJ NOW ONE Stop: 01/09/22 17:56 Last Admin: 01/09/22 17:55 Dose: 30 ml Documented By: IZABEL Bupivacaine Liposome (Bupivacaine Liposome 266 Mg/20 Ml Vial) 266 mg INJ NOW ONE Stop: 01/09/22 17:59 Last Admin: 01/09/22 17:58 Dose: 266 mg Documented By: IZABEL Clonazepam (Clonazepam 0.5 Mg Tablet) 1 mg PO TID PRN PRN Reason: anxiety Last Admin: 01/09/22 11:46 Dose: 1 mg Documented By: Admin: 01/09/22 05:38 Dose: 1 mg Documented By: HARVEY Clonazepam (Clonazepam 0.5 Mg Tablet) 1 mg PO TID PRN PRN Reason: Anxiety Last Admin: 01/10/22 20:23 Dose: 1 mg Documented By: Admin: 01/10/22 17:14 Dose: 1 mg Documented By: Admin: 01/10/22 15:03 Dose: 1 mg Documented By: ELVIS Cyclobenzaprine HCl (Cyclobenzaprine 10 Mg Tablet) 0 mg PO TID PRN PRN Reason: MUSCLE SPASMS Last Admin: 01/11/22 08:23 Dose: 10 mg Documented By: Admin: 01/10/22 20:24 Dose: 10 mg Documented By: Admin: 01/10/22 09:34 Dose: 10 mg Documented By: ELVIS Docusate Sodium (Docusate 100 Mg Capsule) 100 mg PO BID [facility] Last Admin: 01/11/22 08:23 Dose: 100 mg Documented By: Admin: 01/10/22 20:24 Dose: 100 mg Documented By: Admin: 01/10/22 09:35 Dose: 100 mg Documented By: Admin: 01/09/22 21:19 Dose: 100 mg Documented By: JEAN Epinephrine HCl (Epinephrine 1 Mg/Ml) 0.15 mg IM NOW ONE Stop: 01/09/22 17:58 Last Admin: 01/09/22 21:39 Dose: Not Given Documented By: JEAN Fluticasone Propionate (Fluticasone 120 [place]/16 Gm [place].Susp) 1 spray NASAL BID [facility] Last Admin: 01/10/22 10:15 Dose: Not Given Documented By: Admin: 01/09/22 21:20 Dose: Not Given Documented By: JEAN Fluticasone Propionate (Fluticasone 120 [place]/16 Gm [place].Susp) 1 spray NASAL BEDTIME [facility] Last Admin: 01/10/22 20:24 Dose: 1 spray Documented By: Hydromorphone HCl (Hydromorphone 0.5 Mg Inj) 0.5 mg IV Q2H PRN PRN Reason: pain Last Admin: 01/08/22 17:33 Dose: 0.5 mg Documented By: GENE Hydromorphone HCl (Hydromorphone 0.5 Mg Inj) 1 mg IV Q3H PRN PRN Reason: Breakthrough pain only (8-10) Hydromorphone HCl (Hydromorphone 0.5 Mg Inj) 0.5 mg IV Q4H PRN PRN Reason: Breakthrough pain only (8-10) Last Admin: 01/09/22 11:46 Dose: 0.5 mg Documented By: Admin: 01/09/22 03:58 Dose: 0.5 mg Documented By: HARVEY Hydromorphone HCl (Hydromorphone 2 Mg Inj) 0.5 mg IV Q5MIN PRN PRN Reason: PAIN IN PACU Hydromorphone HCl (Hydromorphone 2 Mg Inj) 0 mg IV Q5MIN PRN PRN Reason: Pain, Moderate (4-6) Last Admin: 01/09/22 19:28 Dose: 0.25 mg Documented By: BIPIN Hydromorphone HCl (Hydromorphone 2 Mg Inj) 0.25 mg IV Q5MIN PRN PRN Reason: Pain, Moderate (4-6) Hydromorphone HCl (Hydromorphone 2 Mg Tablet) 2 mg PO Q3H PRN PRN Reason: Pain, Severe (7-10) Last Admin: 01/11/22 11:20 Dose: 2 mg Documented By: PASCUAL Hydromorphone HCl (Hydromorphone 2 Mg Inj) 2 mg IV Q1H PRN PRN Reason: Pain, Severe (7-10) Hydromorphone HCl (Hydromorphone 4 Mg Tablet) 4 mg PO Q4HR PRN PRN Reason: Pain, Severe (7-10) Last Admin: 01/11/22 03:02 Dose: 4 mg Documented By: Admin: 01/10/22 23:04 Dose: 4 mg Documented By: Admin: 01/10/22 18:49 Dose: 4 mg Documented By: ELVIS Lactated Ringer's (Lactated Ringers) 1,000 mls @ 42 mls/hr IV CONT LISA Last Infusion: 01/09/22 19:57 Dose: 0 mls/hr Documented By: Admin: 01/09/22 15:04 Dose: 42 mls/hr Documented By: ADAM Tranexamic Acid 1,000 mg/ (Sodium Chloride) 100 mls @ 200 mls/hr IV NOW ONE Stop: 01/09/22 18:20 Last Admin: 01/09/22 17:25 Dose: 200 mls/hr Documented By: MARGUERITE Cefazolin Sodium/Dextrose (Ancef) 100 mls @ 200 mls/hr IV NOW ONE Stop: 01/09/22 19:31 Last Infusion: 01/09/22 17:35 Dose: 0 mls/hr Documented By: Admin: 01/09/22 17:25 Dose: 200 mls/hr Documented By: MARGUERITE Lactated Ringer's (Lactated Ringers) 1,000 mls @ 125 mls/hr IV CONT LISA Last Infusion: 01/10/22 05:13 Dose: 0 mls/hr Documented By: Admin: 01/09/22 21:19 Dose: 125 mls/hr Documented By: JEAN Cefazolin Sodium/Dextrose (Ancef) 100 mls @ 200 mls/hr IV Q8H LISA Stop: 01/10/22 11:29 Last Admin: 01/10/22 10:32 Dose: 200 mls/hr Documented By: Infusion: 01/10/22 06:21 Dose: 0 mls/hr Documented By: Admin: 01/10/22 02:48 Dose: 200 mls/hr Documented By: JEAN Ibuprofen (Ibuprofen 400 Mg Tablet) 400 mg PO Q6HR [facility] Last Admin: 01/11/22 11:19 Dose: 400 mg Documented By: Admin: 01/11/22 05:57 Dose: 400 mg Documented By: Admin: 01/10/22 23:35 Dose: 400 mg Documented By: Admin: 01/10/22 17:15 Dose: 400 mg Documented By: Admin: 01/10/22 11:42 Dose: 400 mg Documented By: Admin: 01/10/22 05:01 Dose: 400 mg Documented By: Admin: 01/10/22 00:36 Dose: 400 mg Documented By: JEAN Ketorolac Tromethamine (Ketorolac 30 Mg/Ml Vial) 15 mg IM NOW ONE Stop: 01/08/22 17:18 Last Admin: 01/08/22 17:33 Dose: Not Given Documented By: GENE Lidocaine (Lidocaine Patch 1 Each Adh..Patch) 1 each TOP DAILY [facility] Last Admin: 01/11/22 08:23 Dose: 1 each Documented By: Admin: 01/10/22 09:35 Dose: 1 each Documented By: ELVIS Methadone HCl (Methadone 10 Mg Tablet) 10 mg PO DAILY [facility] Methadone HCl (Methadone 10 Mg Tablet) 10 mg PO QID [facility] Last Admin: 01/09/22 21:39 Dose: Not Given Documented By: Admin: 01/09/22 11:46 Dose: 10 mg Documented By: Admin: 01/09/22 10:00 Dose: 10 mg Documented By: Admin: 01/08/22 20:22 Dose: 10 mg Documented By: HARVEY Methadone HCl (Methadone 10 Mg Tablet) 10 mg PO QID [facility] Last Admin: 01/11/22 12:12 Dose: 10 mg Documented By: Admin: 01/11/22 08:23 Dose: 10 mg Documented By: Admin: 01/10/22 20:24 Dose: 10 mg Documented By: Admin: 01/10/22 17:15 Dose: 10 mg Documented By: Admin: 01/10/22 15:02 Dose: 10 mg Documented By: Admin: 01/10/22 10:32 Dose: 10 mg Documented By: ELVIS Naloxone HCl (Naloxone 0.4 Mg/Ml Vial) 0.2 mg IV Q2MIN PRN PRN Reason: Opiate Reversal Ondansetron HCl (Ondansetron 4 Mg/2 Ml Inj) 4 mg IV Q4HR PRN PRN Reason: Nausea And Vomiting Ondansetron HCl (Ondansetron 4 Mg Odt) 4 mg PO Q4HR PRN PRN Reason: Nausea Oxycodone HCl (Oxycodone Ir 10 Mg Tablet) 10 mg PO Q4HR PRN PRN Reason: Pain, Severe (7-10) Oxycodone HCl (Oxycodone Ir 5 Mg Tablet) 5 mg PO PACUNOW PRN PRN Reason: Mild or moderate pain Last Admin: 01/09/22 19:40 Dose: 5 mg Documented By: GMShreyas Oxycodone HCl (Oxycodone Ir 10 Mg Tablet) 10 mg PO Q3HR PRN PRN Reason: Pain, Severe (7-10) Last Admin: 01/11/22 05:58 Dose: 10 mg Documented By: Admin: 01/10/22 20:23 Dose: 10 mg Documented By: Admin: 01/10/22 15:02 Dose: 10 mg Documented By: Admin: 01/10/22 09:35 Dose: 10 mg Documented By: ELVIS Oxycodone HCl (Oxycodone Ir 5 Mg Tablet) 5 mg PO Q3HR PRN PRN Reason: Pain, Moderate (4-6) Last Admin: 01/10/22 06:24 Dose: 5 mg Documented By: JEAN Oxycodone/Acetaminophen (Oxycodone/Acetaminophen 5/325 Tablet) 1 tab PO NOW ONE Stop: 01/08/22 17:18 Last Admin: 01/08/22 17:33 Dose: 1 tab Documented By: GENE Pantoprazole Sodium (Pantoprazole Dr 40 Mg Tablet) 40 mg PO DAILY [facility] Last Admin: 01/09/22 10:00 Dose: 40 mg Documented By: ELVIS Polyethylene Glycol (Polyethylene Glycol 3350 17 Gm Powd.Pack) 17 gm PO DAILY [facility] Last Admin: 01/09/22 10:00 Dose: 17 gm Documented By: ELVIS Polyethylene Glycol (Polyethylene Glycol 3350 17 Gm Powd.Pack) 17 gm PO DAILY PRN PRN Reason: Constipation Last Admin: 01/10/22 20:25 Dose: 17 gm Documented By: Admin: 01/10/22 09:36 Dose: 17 gm Documented By: ELVIS Sennosides (Sennosides 8.6 Mg Tablet) 17.2 mg PO DAILY [facility] Last Admin: 01/09/22 10:00 Dose: 17.2 mg Documented By: ELVIS Sodium Chloride (Sodium Chloride 0.9% Flush) 10 ml IV BID [facility] Last Admin: 01/09/22 10:00 Dose: 10 ml Documented By: Admin: 01/08/22 21:07 Dose: 10 ml Documented By: HAREVY Sodium Chloride (Sodium Chloride 0.9% Flush) 10 ml IV PRN PRN PRN Reason: Flush Last Admin: 01/09/22 03:59 Dose: 10 ml Documented By: HARVEY Sumatriptan Succinate (Sumatriptan 25 Mg Tablet) 50 mg PO NOW ONE Stop: 01/09/22 20:37 Last Admin: 01/09/22 21:19 Dose: Not Given Documented By: JEAN Consultations Consultation #1: Consultation with Dr. Korina Knott who understands patient's right closed subcapital femoral neck fracture and recommends admission to the hospital for surgical fixation tomorrow. Vital Signs Vital signs: Vital Signs - 8 hr 01/08/22 16:11 01/08/22 17:07 Temperature 98.7 F Pulse Rate 95 H 89 Respiratory Rate 18 16 Blood Pressure 116/70 105/76 Pulse Oximetry 97 99 Oxygen Delivery Method Room Air <Andree Crain, - Last Filed: 01/16/22 08:15> Orders Ordered: Discontinued Medications Acetaminophen (Acetaminophen 325 Mg Tablet) 650 mg PO Q6HR PRN PRN Reason: Fever/Mild Pain (1-3) Acetaminophen (Acetaminophen 325 Mg Tablet) 650 mg PO Q6HR [facility] Last Admin: 01/11/22 11:20 Dose: 650 mg Documented By: Admin: 01/11/22 05:58 Dose: 650 mg Documented By: Admin: 01/10/22 23:35 Dose: 650 mg Documented By: Admin: 01/10/22 17:16 Dose: 650 mg Documented By: Admin: 01/10/22 11:42 Dose: 650 mg Documented By: Admin: 01/10/22 05:02 Dose: 650 mg Documented By: Admin: 01/10/22 00:36 Dose: 650 mg Documented By: JEAN Aspirin (Aspirin Ec 81 Mg Tablet) 81 mg PO BID [facility] Last Admin: 01/11/22 08:23 Dose: 81 mg Documented By: Admin: 01/10/22 20:23 Dose: 81 mg Documented By: Admin: 01/10/22 09:34 Dose: 81 mg Documented By: Admin: 01/09/22 21:19 Dose: 81 mg Documented By: JEAN Bupivacaine HCl (Bupivacaine 0.5% (Pf) Vial) 30 ml INJ NOW ONE Stop: 01/09/22 17:56 Last Admin: 01/09/22 17:55 Dose: 30 ml Documented By: IZABEL Bupivacaine Liposome (Bupivacaine Liposome 266 Mg/20 Ml Vial) 266 mg INJ NOW ONE Stop: 01/09/22 17:59 Last Admin: 01/09/22 17:58 Dose: 266 mg Documented By: IZABEL Clonazepam (Clonazepam 0.5 Mg Tablet) 1 mg PO TID PRN PRN Reason: anxiety Last Admin: 01/09/22 11:46 Dose: 1 mg Documented By: Admin: 01/09/22 05:38 Dose: 1 mg Documented By: HARVEY Clonazepam (Clonazepam 0.5 Mg Tablet) 1 mg PO TID PRN PRN Reason: Anxiety Last Admin: 01/10/22 20:23 Dose: 1 mg Documented By: Admin: 01/10/22 17:14 Dose: 1 mg Documented By: Admin: 01/10/22 15:03 Dose: 1 mg Documented By: ELVIS Cyclobenzaprine HCl (Cyclobenzaprine 10 Mg Tablet) 0 mg PO TID PRN PRN Reason: MUSCLE SPASMS Last Admin: 01/11/22 08:23 Dose: 10 mg Documented By: Admin: 01/10/22 20:24 Dose: 10 mg Documented By: Admin: 01/10/22 09:34 Dose: 10 mg Documented By: ELVIS Docusate Sodium (Docusate 100 Mg Capsule) 100 mg PO BID [facility] Last Admin: 01/11/22 08:23 Dose: 100 mg Documented By: Admin: 01/10/22 20:24 Dose: 100 mg Documented By: Admin: 01/10/22 09:35 Dose: 100 mg Documented By: Admin: 01/09/22 21:19 Dose: 100 mg Documented By: JEAN Epinephrine HCl (Epinephrine 1 Mg/Ml) 0.15 mg IM NOW ONE Stop: 01/09/22 17:58 Last Admin: 01/09/22 21:39 Dose: Not Given Documented By: JEAN Fluticasone Propionate (Fluticasone 120 [place]/16 Gm [place].Susp) 1 spray NASAL BID [facility] Last Admin: 01/10/22 10:15 Dose: Not Given Documented By: Admin: 01/09/22 21:20 Dose: Not Given Documented By: JEAN Fluticasone Propionate (Fluticasone 120 [place]/16 Gm [place].Susp) 1 spray NASAL BEDTIME [facility] Last Admin: 01/10/22 20:24 Dose: 1 spray Documented By: Hydromorphone HCl (Hydromorphone 0.5 Mg Inj) 0.5 mg IV Q2H PRN PRN Reason: pain Last Admin: 01/08/22 17:33 Dose: 0.5 mg Documented By: GENE Hydromorphone HCl (Hydromorphone 0.5 Mg Inj) 1 mg IV Q3H PRN PRN Reason: Breakthrough pain only (8-10) Hydromorphone HCl (Hydromorphone 0.5 Mg Inj) 0.5 mg IV Q4H PRN PRN Reason: Breakthrough pain only (8-10) Last Admin: 01/09/22 11:46 Dose: 0.5 mg Documented By: Admin: 01/09/22 03:58 Dose: 0.5 mg Documented By: HARVEY Hydromorphone HCl (Hydromorphone 2 Mg Inj) 0.5 mg IV Q5MIN PRN PRN Reason: PAIN IN PACU Hydromorphone HCl (Hydromorphone 2 Mg Inj) 0 mg IV Q5MIN PRN PRN Reason: Pain, Moderate (4-6) Last Admin: 01/09/22 19:28 Dose: 0.25 mg Documented By: BIPIN Hydromorphone HCl (Hydromorphone 2 Mg Inj) 0.25 mg IV Q5MIN PRN PRN Reason: Pain, Moderate (4-6) Hydromorphone HCl (Hydromorphone 2 Mg Tablet) 2 mg PO Q3H PRN PRN Reason: Pain, Severe (7-10) Last Admin: 01/11/22 11:20 Dose: 2 mg Documented By: PASCUAL Hydromorphone HCl (Hydromorphone 2 Mg Inj) 2 mg IV Q1H PRN PRN Reason: Pain, Severe (7-10) Hydromorphone HCl (Hydromorphone 4 Mg Tablet) 4 mg PO Q4HR PRN PRN Reason: Pain, Severe (7-10) Last Admin: 01/11/22 03:02 Dose: 4 mg Documented By: Admin: 01/10/22 23:04 Dose: 4 mg Documented By: Admin: 01/10/22 18:49 Dose: 4 mg Documented By: ELVIS Lactated Ringer's (Lactated Ringers) 1,000 mls @ 42 mls/hr IV CONT ILSA Last Infusion: 01/09/22 19:57 Dose: 0 mls/hr Documented By: Admin: 01/09/22 15:04 Dose: 42 mls/hr Documented By: ADAM Tranexamic Acid 1,000 mg/ (Sodium Chloride) 100 mls @ 200 mls/hr IV NOW ONE Stop: 01/09/22 18:20 Last Admin: 01/09/22 17:25 Dose: 200 mls/hr Documented By: MARGUERITE Cefazolin Sodium/Dextrose (Ancef) 100 mls @ 200 mls/hr IV NOW ONE Stop: 01/09/22 19:31 Last Infusion: 01/09/22 17:35 Dose: 0 mls/hr Documented By: Admin: 01/09/22 17:25 Dose: 200 mls/hr Documented By: MARGUERITE Lactated Ringer's (Lactated Ringers) 1,000 mls @ 125 mls/hr IV CONT [facility] Last Infusion: 01/10/22 05:13 Dose: 0 mls/hr Documented By: Admin: 01/09/22 21:19 Dose: 125 mls/hr Documented By: JEAN Cefazolin Sodium/Dextrose (Ancef) 100 mls @ 200 mls/hr IV Q8H [facility] Stop: 01/10/22 11:29 Last Admin: 01/10/22 10:32 Dose: 200 mls/hr Documented By: Infusion: 01/10/22 06:21 Dose: 0 mls/hr Documented By: Admin: 01/10/22 02:48 Dose: 200 mls/hr Documented By: JEAN Ibuprofen (Ibuprofen 400 Mg Tablet) 400 mg PO Q6HR [facility] Last Admin: 01/11/22 11:19 Dose: 400 mg Documented By: Admin: 01/11/22 05:57 Dose: 400 mg Documented By: Admin: 01/10/22 23:35 Dose: 400 mg Documented By: Admin: 01/10/22 17:15 Dose: 400 mg Documented By: Admin: 01/10/22 11:42 Dose: 400 mg Documented By: Admin: 01/10/22 05:01 Dose: 400 mg Documented By: Admin: 01/10/22 00:36 Dose: 400 mg Documented By: JEAN Ketorolac Tromethamine (Ketorolac 30 Mg/Ml Vial) 15 mg IM NOW ONE Stop: 01/08/22 17:18 Last Admin: 01/08/22 17:33 Dose: Not Given Documented By: GENE Lidocaine (Lidocaine Patch 1 Each Adh..Patch) 1 each TOP DAILY [facility] Last Admin: 01/11/22 08:23 Dose: 1 each Documented By: Admin: 01/10/22 09:35 Dose: 1 each Documented By: ELVIS Methadone HCl (Methadone 10 Mg Tablet) 10 mg PO DAILY [facility] Methadone HCl (Methadone 10 Mg Tablet) 10 mg PO QID [facility] Last Admin: 01/09/22 21:39 Dose: Not Given Documented By: Admin: 01/09/22 11:46 Dose: 10 mg Documented By: Admin: 01/09/22 10:00 Dose: 10 mg Documented By: Admin: 01/08/22 20:22 Dose: 10 mg Documented By: HARVEY Methadone HCl (Methadone 10 Mg Tablet) 10 mg PO QID [facility] Last Admin: 01/11/22 12:12 Dose: 10 mg Documented By: Admin: 01/11/22 08:23 Dose: 10 mg Documented By: Admin: 01/10/22 20:24 Dose: 10 mg Documented By: Admin: 01/10/22 17:15 Dose: 10 mg Documented By: Admin: 01/10/22 15:02 Dose: 10 mg Documented By: Admin: 01/10/22 10:32 Dose: 10 mg Documented By: ELVIS Naloxone HCl (Naloxone 0.4 Mg/Ml Vial) 0.2 mg IV Q2MIN PRN PRN Reason: Opiate Reversal Ondansetron HCl (Ondansetron 4 Mg/2 Ml Inj) 4 mg IV Q4HR PRN PRN Reason: Nausea And Vomiting Ondansetron HCl (Ondansetron 4 Mg Odt) 4 mg PO Q4HR PRN PRN Reason: Nausea Oxycodone HCl (Oxycodone Ir 10 Mg Tablet) 10 mg PO Q4HR PRN PRN Reason: Pain, Severe (7-10) Oxycodone HCl (Oxycodone Ir 5 Mg Tablet) 5 mg PO [place] PRN PRN Reason: Mild or moderate pain Last Admin: 01/09/22 19:40 Dose: 5 mg Documented By: GMB Oxycodone HCl (Oxycodone Ir 10 Mg Tablet) 10 mg PO Q3HR PRN PRN Reason: Pain, Severe (7-10) Last Admin: 01/11/22 05:58 Dose: 10 mg Documented By: Admin: 01/10/22 20:23 Dose: 10 mg Documented By: Admin: 01/10/22 15:02 Dose: 10 mg Documented By: Admin: 01/10/22 09:35 Dose: 10 mg Documented By: ELVIS Oxycodone HCl (Oxycodone Ir 5 Mg Tablet) 5 mg PO Q3HR PRN PRN Reason: Pain, Moderate (4-6) Last Admin: 01/10/22 06:24 Dose: 5 mg Documented By: JEAN Oxycodone/Acetaminophen (Oxycodone/Acetaminophen 5/325 Tablet) 1 tab PO NOW ONE Stop: 01/08/22 17:18 Last Admin: 01/08/22 17:33 Dose: 1 tab Documented By: GENE Pantoprazole Sodium (Pantoprazole Dr 40 Mg Tablet) 40 mg PO DAILY [facility] Last Admin: 01/09/22 10:00 Dose: 40 mg Documented By: ELVIS Polyethylene Glycol (Polyethylene Glycol 3350 17 Gm Powd.Pack) 17 gm PO DAILY [facility] Last Admin: 01/09/22 10:00 Dose: 17 gm Documented By: ELVIS Polyethylene Glycol (Polyethylene Glycol 3350 17 Gm Powd.Pack) 17 gm PO DAILY PRN PRN Reason: Constipation Last Admin: 01/10/22 20:25 Dose: 17 gm Documented By: Admin: 01/10/22 09:36 Dose: 17 gm Documented By: ELVIS Sennosides (Sennosides 8.6 Mg Tablet) 17.2 mg PO DAILY [facility] Last Admin: 01/09/22 10:00 Dose: 17.2 mg Documented By: ELVIS Sodium Chloride (Sodium Chloride 0.9% Flush) 10 ml IV BID [facility] Last Admin: 01/09/22 10:00 Dose: 10 ml Documented By: Admin: 01/08/22 21:07 Dose: 10 ml Documented By: HARVEY Sodium Chloride (Sodium Chloride 0.9% Flush) 10 ml IV PRN PRN PRN Reason: Flush Last Admin: 01/09/22 03:59 Dose: 10 ml Documented By: HARVEY Sumatriptan Succinate (Sumatriptan 25 Mg Tablet) 50 mg PO NOW ONE Stop: 01/09/22 20:37 Last Admin: 01/09/22 21:19 Dose: Not Given Documented By: JENA Vital Signs Vital signs: Vital Signs - 8 hr 01/08/22 16:11 01/08/22 17:07 Temperature 98.7 F Pulse Rate 95 H 89 Respiratory Rate 18 16 Blood Pressure 116/70 105/76 Pulse Oximetry 97 99 Oxygen Delivery Method Room Air MDM - Extremity Injury (Lower) <Silvia Blanton, [employer]ING [employer]ER - Last Filed: 01/08/22 18:29> Lab Data Result diagrams: 01/11/22 05:03 01/11/22 05:03 Labs: Lab Results 01/08/22 01/08/22 01/08/22 Range/Units 17:03 17:08 17:08 WBC 8.9 (4.5-11.0) X10^3/uL RBC 3.18 L (4.0-5.2) X10^6/uL Hgb 9.4 L (12.0-16.0) g/dL Hct 28.2 L (36-46) % MCV 88.8 (80-100) fL MCH 29.6 (26-34) PG MCHC 33.4 (30-36) % RDW 13.2 (11.6-14.8) % Plt Count 210 (150-400) X10^3/uL Neut % (Auto) 77.5 H (50-75) % Lymph % (Auto) 12.4 L (25-40) % [place] % (Auto) 6.1 (3-14) % Eos % (Auto) 3.8 (2-4) % Baso % (Auto) 0.2 (0-2) % Neut # (Auto) 6900 (4932-3631) /uL Lymph # (Auto) 1100 (5613-6701) /uL [place] # (Auto) 500 (0-900) /uL Eos # (Auto) 300 (0-450) /uL Baso # (Auto) 0 (0-100) /uL PT 10.7 (10.1-12.7) SECONDS INR 1.0 (0.9-1.3) Sodium (137-145) mmol/L Potassium Chloride (98-107) mmol/L Carbon Dioxide (22-32) mmol/L BUN (7-17) mg/dL Creatinine (0.52-1.04) mg/dL Estimated GFR (>60) mL/min BUN/Creatinine Ratio (6-22) Glucose (70-100) mg/dL Calcium (8.4-10.2) mg/dL Magnesium (1.6-2.3) mg/dL Total Bilirubin (0.2-1.3) mg/dL AST ALT (<35) IU/L Alkaline Phosphatase (38-126) U/L Total Protein (6.3-8.2) g/dL Albumin (3.5-5.0) g/dL Globulin (1.7-4.1) g/dL Albumin/Globulin Ratio (1.0-2.8) SARS-CoV-2 (PCR) Negative (Negative) 01/08/22 01/08/22 Range/Units 17:08 17:08 WBC (4.5-11.0) X10^3/uL RBC (4.0-5.2) X10^6/uL Hgb (12.0-16.0) g/dL Hct (36-46) % MCV (80-100) fL MCH (26-34) PG MCHC (30-36) % RDW (11.6-14.8) % Plt Count (150-400) X10^3/uL Neut % (Auto) (50-75) % Lymph % (Auto) (25-40) % [place] % (Auto) (3-14) % Eos % (Auto) (2-4) % Baso % (Auto) (0-2) % Neut # (Auto) (9720-6759) /uL Lymph # (Auto) (7062-4458) /uL [place] # (Auto) (0-900) /uL Eos # (Auto) (0-450) /uL Baso # (Auto) (0-100) /uL PT (10.1-12.7) SECONDS INR (0.9-1.3) Sodium 136 L (137-145) mmol/L Potassium TNP Chloride 104 (98-107) mmol/L Carbon Dioxide 26 (22-32) mmol/L BUN 12 (7-17) mg/dL Creatinine 1.02 (0.52-1.04) mg/dL Estimated GFR > 60 (>60) mL/min BUN/Creatinine Ratio 11.8 (6-22) Glucose 92 (70-100) mg/dL Calcium 9.0 (8.4-10.2) mg/dL Magnesium 2.0 (1.6-2.3) mg/dL Total Bilirubin 0.7 (0.2-1.3) mg/dL AST TNP ALT 19 (<35) IU/L Alkaline Phosphatase 42 (38-126) U/L Total Protein 6.9 (6.3-8.2) g/dL Albumin 4.0 (3.5-5.0) g/dL Globulin 2.9 (1.7-4.1) g/dL Albumin/Globulin Ratio 1.4 (1.0-2.8) SARS-CoV-2 (PCR) (Negative) Imaging Data Extremity x-ray #1: Radiologist's Impression: PROCEDURE:? XR HIP W PEL IF DONE RT 2V ? INDICATIONS:? acute pain, unable to stand ? TECHNIQUE:? AP pelvis with lateral view(s) of the right hip(s).? ? COMPARISON:? [facility], , XR HIP W PEL IF DONE BILAT 2V, 11/15/2019, 20:31. ? FINDINGS:? ? Bones:? There is a displaced right subcapital femoral neck fracture.? There is no dislocation at the hip joint.? Remaining osseous structures appear intact. ? Soft tissues:? The visualized bowel gas pattern is normal.? No suspicious soft tissue calcifications.? ? ? IMPRESSION:? Subcapital right femoral neck fracture. ? ? Dictated by: Darby Krishnan M.D. on 01/08/2022 at 16:52 ? ? Approved by: Darby Krishnan M.D. on 01/08/2022 at 16:53 ? ECG Data Interpretation: EKG independently reviewed by myself at [] reveals normal sinus rhythm at [] bpm with regular axis and intervals. No STEMI, ST segment changes, arrhythmia, or acute ischemic changes. MDM Narrative Medical decision making narrative: This is a 51-year-old female presents to the emergency department after a ground level fall onto her right hip yesterday after her right knee when out due to sciatica. Patient has a history of chronic pain, she is a current methadone user of 4 mg per day, osteopenia and osteoporosis. X-ray of her right hip shows a right subcapital femoral neck fracture which is displaced and not dislocated. Patient denies any groin paresthesia or cauda equina symptoms, she is neurovascularly intact without any sensation changes distal to her injury, she has good perfusion to her right foot with 2+ pulses and brisk cap refill. Dr. Dayana Knott accepts patient for surgical fixation tomorrow, and Dr. Huff accepts patient for admission to the hospitalist service overnight. Patient was treated in the emergency department with a Percocet, Toradol, and she had her methadone dosing this morning. She is neurologically intact without any deficits on my exam. Her lab work overall is unremarkable except for mild anemia, hemoglobin is 9.4 with hematocrit 28.2, this is consistent with most of her priors, no significant electrolyte abnormalities, creatinine of 1.02 which is mildly elevated from her baseline COVID PCR is negative today. <Andree Crain, DO - Last Filed: 01/16/22 08:15> Lab Data Labs: Lab Results 01/08/22 01/08/22 01/08/22 Range/Units 17:03 17:08 17:08 WBC 8.9 (4.5-11.0) X10^3/uL RBC 3.18 L (4.0-5.2) X10^6/uL Hgb 9.4 L (12.0-16.0) g/dL Hct 28.2 L (36-46) % MCV 88.8 (80-100) fL MCH 29.6 (26-34) PG MCHC 33.4 (30-36) % RDW 13.2 (11.6-14.8) % Plt Count 210 (150-400) X10^3/uL Neut % (Auto) 77.5 H (50-75) % Lymph % (Auto) 12.4 L (25-40) % [place] % (Auto) 6.1 (3-14) % Eos % (Auto) 3.8 (2-4) % Baso % (Auto) 0.2 (0-2) % Neut # (Auto) 6900 (3227-1515) /uL Lymph # (Auto) 1100 (9855-1757) /uL [place] # (Auto) 500 (0-900) /uL Eos # (Auto) 300 (0-450) /uL Baso # (Auto) 0 (0-100) /uL PT 10.7 (10.1-12.7) SECONDS INR 1.0 (0.9-1.3) Sodium (137-145) mmol/L Potassium Chloride (98-107) mmol/L Carbon Dioxide (22-32) mmol/L BUN (7-17) mg/dL Creatinine (0.52-1.04) mg/dL Estimated GFR (>60) mL/min BUN/Creatinine Ratio (6-22) Glucose (70-100) mg/dL Calcium (8.4-10.2) mg/dL Magnesium (1.6-2.3) mg/dL Total Bilirubin (0.2-1.3) mg/dL AST ALT (<35) IU/L Alkaline Phosphatase (38-126) U/L Total Protein (6.3-8.2) g/dL Albumin (3.5-5.0) g/dL Globulin (1.7-4.1) g/dL Albumin/Globulin Ratio (1.0-2.8) SARS-CoV-2 (PCR) Negative (Negative) 01/08/22 01/08/22 Range/Units 17:08 17:08 WBC (4.5-11.0) X10^3/uL RBC (4.0-5.2) X10^6/uL Hgb (12.0-16.0) g/dL Hct (36-46) % MCV (80-100) fL MCH (26-34) PG MCHC (30-36) % RDW (11.6-14.8) % Plt Count (150-400) X10^3/uL Neut % (Auto) (50-75) % Lymph % (Auto) (25-40) % [place] % (Auto) (3-14) % Eos % (Auto) (2-4) % Baso % (Auto) (0-2) % Neut # (Auto) (4204-6966) /uL Lymph # (Auto) (7238-1663) /uL [place] # (Auto) (0-900) /uL Eos # (Auto) (0-450) /uL Baso # (Auto) (0-100) /uL PT (10.1-12.7) SECONDS INR (0.9-1.3) Sodium 136 L (137-145) mmol/L Potassium TNP Chloride 104 (98-107) mmol/L Carbon Dioxide 26 (22-32) mmol/L BUN 12 (7-17) mg/dL Creatinine 1.02 (0.52-1.04) mg/dL Estimated GFR > 60 (>60) mL/min BUN/Creatinine Ratio 11.8 (6-22) Glucose 92 (70-100) mg/dL Calcium 9.0 (8.4-10.2) mg/dL Magnesium 2.0 (1.6-2.3) mg/dL Total Bilirubin 0.7 (0.2-1.3) mg/dL AST TNP ALT 19 (<35) IU/L Alkaline Phosphatase 42 (38-126) U/L Total Protein 6.9 (6.3-8.2) g/dL Albumin 4.0 (3.5-5.0) g/dL Globulin 2.9 (1.7-4.1) g/dL Albumin/Globulin Ratio 1.4 (1.0-2.8) SARS-CoV-2 (PCR) (Negative) Discharge Plan Departure Patient Disposition: Admitted As Inpatient Clinical Impression: Subcapital fracture of neck of femur Qualifiers: Encounter type: initial encounter Fracture type: closed Laterality: right Qualified Code(s): S72.011A - Unspecified intracapsular fracture of right femur, initial encounter for closed fracture Admit Date/Time: 01/08/22 17:26 Admit Provider: Evert Huff <Andree Crain DO - Last Filed: 01/16/22 08:15> Cosign ED Attending Cosignature Attestation: I was immediately available in the department for consultation. Documentation has been reviewed.
[2022-01-08 17:07] VITALS: BP 105/76; PULSE 89; RESP 16; O2SAT 99
[2022-01-08 17:26] LABS: COVID19 -Nasal RAPID Negative (Negative)
[2022-01-08 17:33] LABS: Add Manual Diff / Slide Review NO; Basophils Absolute Auto 0 /uL (0-100); Basophils Percent Auto 0.2 % (0-2); Eosinophils Absolute Auto 300 /uL (0-450); Eosinophils Percent Auto 3.8 % (2-4); Hematocrit 28.2 % (36-46); Hemoglobin 9.4 g/dL (12.0-16.0); Lymphocytes Absolute Auto 1100 /uL (1100-4500); Lymphocytes Percent Auto 12.4 % (25-40); Mean Corpuscular HGB Conc 33.4 % (30-36); Mean Corpuscular Hemoglobin 29.6 PG (26-34); Mean Corpuscular Volume 88.8 fL (80-100); Monocytes Absolute Auto 500 /uL (0-900); Monocytes Percent Auto 6.1 % (3-14); Neutrophils Absolute Auto 6900 /uL (1500-7000); Neutrophils Percent Auto 77.5 % (50-75); Platelet Count 210 X10^3/uL (150-400); Prothrombin Time 10.7 SECONDS (10.1-12.7); Red Blood Cell Count 3.18 X10^6/uL (4.0-5.2); Red Cell Distribution Width 13.2 % (11.6-14.8); White Blood Cell Count 8.9 X10^3/uL (4.5-11.0)
[2022-01-08] MEDS: OXYCODONE/ACETAMINOPHEN 5/325 TABLET 1 TAB PO (17:33)
[2022-01-08] MEDS: HYDROMORPHONE 0.5 MG INJ IV (17:33)
[2022-01-08 17:39] LABS: Alanine Aminotransferase 19 IU/L (<35); Albumin Globulin Ratio 1.4 (1.0-2.8); Alkaline Phosphatase 42 U/L (38-126); BUN Creatinine Ratio 11.8 (6-22); Bilirubin Total 0.7 mg/dL (0.2-1.3); Blood Urea Nitrogen 12 mg/dL (7-17); Carbon Dioxide 26 mmol/L (22-32); Chloride 104 mmol/L (98-107); Estimated Glomerular Filt Rate > 60 mL/min (>60); Globulin 2.9 g/dL (1.7-4.1); Glucose 92 mg/dL (70-100); Sodium 136 mmol/L (137-145); Total Protein 6.9 g/dL (6.3-8.2)
[2022-01-08 17:47] LABS: HEMOLYSIS 141 (0-50)
[2022-01-08 18:00] VITALS: BP 103/75; PULSE 87; RESP 16; O2SAT 99
[2022-01-08 18:15] VITALS: BMI 16.9
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
--- NOTE | 2022-01-08 20:05 | P.HP_ITS ---
History of Present Illness History of Present Illness Date Patient Seen: 01/08/22 Time Patient Seen: 20:05 Date of Onset of Symptoms: 01/07/22 Chief complaint: Rt side hip injury Narrative: This is a 51-year-old female who stepped in a hole twisted and noted the acute onset of right hip pain. She actually injured it yesterday. She had difficulty weight-bearing. She was using a chair to get around. And eventually presented to the emergency room. She has a history of chronic pain syndrome chronic narcotic dependence and is chronically on methadone. She lives with her mom. She also has a history of complex regional pain disorder which is a globalized but slightly worse on the right leg. Patient History Medical History Allergies Anemia Ankle pain Anxiety disorder Cachexia Cervical somatic dysfunction Cervical spine pain Chronic back pain Chronic pain due to injury Colitis Cranial somatic dysfunction CRPS (complex regional pain syndrome type II) Fibromyalgia Fractures GERD (gastroesophageal reflux disease) GI bleeding Irritable bowel syndrome Lumbar region somatic dysfunction Migraines Osteoarthritis Osteoporosis Pelvic somatic dysfunction Peripheral neuropathy PTSD (post-traumatic stress disorder) Sacral pain Sacral region somatic dysfunction Scoliosis Screening for thyroid disorder Segmental and somatic dysfunction of abdomen and other regions Shoulder pain Somatic dysfunction of lower extremity Thoracic region somatic dysfunction Ulcerative colitis Weight loss, abnormal Surgical History Anesthesia History of bladder surgery Previous back surgery (~1997) Family & Social History Family History Father History of heart disease Stroke Grandfather Cancer Stroke Grandmother Diabetes mellitus Hyperlipidemia Hypertension Stroke Grandfather Cancer Mental health problem Grandmother Cancer Safety & Behavioral: Feels Safe in Current Yes Environment Been Physically Hurt or No Threatened By a Person Tobacco & Substance use: Smoking Status Never smoker Substance Use Type does not use Meds Home Medications and Allergies Home Medications Medication Instructions Recorded Confirmed Type Massage therapy #6 ea 11/07/20 01/08/22 Rx lidocaine patch 1 patch transdermal DAILY 11/07/20 01/08/22 History fluticasone propionate 50 1 spray intranasal BID #16 grams 12/24/20 01/08/22 Rx mcg/actuation nasal spray,suspension (Flonase Allergy Relief) Disabled Parking Permit #1 ea 02/11/21 01/08/22 Rx pantoprazole 40 mg tablet,delayed 40 mg PO DAILY #90 tabs 03/05/21 01/08/22 Rx release sumatriptan succinate 50 mg tablet 50 mg PO ONCE #20 tabs 03/19/21 01/08/22 Rx (Imitrex) clonazepam 1 mg tablet See Rx Instructions .Route 09/03/21 01/08/22 Rx .COMPLEX #90 tabs cyclobenzaprine 10 mg tablet See Rx Instructions .Route 12/25/21 01/08/22 Rx .COMPLEX #90 tabs methadone 10 mg tablet See Rx Instructions .Route 12/25/21 01/08/22 Rx .COMPLEX #120 tabs Allergies Allergy/AdvReac Type Severity Reaction Status Date / Time cortisone [CORTISONE] Allergy Unknown UNABLE TO Verified 01/08/22 16:17 SLEEP, GETS CRAZY Sulfa (Sulfonamide Allergy Unknown SORES IN Verified 01/08/22 16:17 Antibiotics) THE MOUTH [SULFA (SULFONAMIDE ANTIBIOTICS)] Review of Systems Review of Systems Narrative: She was not lightheaded short of breath or dizzy prior to the injury. She basically just twisted her right leg. She has chronic pain everywhere but did not have severe pain in the right hip prior to the injury. Exam Vital Signs (past 8 hours): - 01/08/22 16:11 01/08/22 17:07 01/08/22 18:00 Temperature 98.7 F Pulse Rate 95 H 89 87 Respiratory Rate 18 16 16 Blood Pressure 116/70 105/76 103/75 Pulse Oximetry 97 99 99 Oxygen Delivery Method Room Air Oxygen Delivery Method Room Air Narrative Exam Narrative: Thin alert and oriented, HEENT is benign,, she is resting comfortably in bed, lungs are clear, cor regular rate and rhythm, abdomen is benign, right leg shows evidence of foreshortening, she has significant pain with range of motion in the right hip, she has trace motion in bilateral lower extremities, skin is intact, she has sensation in the right lower extremity Objective Labs Result Diagrams: 01/08/22 17:08 01/08/22 17:08 Labs: Laboratory Results - last 24 hr 01/08/22 01/08/22 01/08/22 17:03 17:08 17:08 WBC 8.9 RBC 3.18 L Hgb 9.4 L Hct 28.2 L MCV 88.8 MCH 29.6 MCHC 33.4 RDW 13.2 Plt Count 210 Neut % (Auto) 77.5 H Lymph % (Auto) 12.4 L [place] % (Auto) 6.1 Eos % (Auto) 3.8 Baso % (Auto) 0.2 Neut # (Auto) 6900 Lymph # (Auto) 1100 [place] # (Auto) 500 Eos # (Auto) 300 Baso # (Auto) 0 PT 10.7 INR 1.0 Sodium Potassium Chloride Carbon Dioxide BUN Creatinine Estimated GFR BUN/Creatinine Ratio Glucose Calcium Magnesium Total Bilirubin AST ALT Alkaline Phosphatase Total Protein Albumin Globulin Albumin/Globulin Ratio SARS-CoV-2 (PCR) Negative 01/08/22 01/08/22 17:08 17:08 WBC RBC Hgb Hct MCV MCH MCHC RDW Plt Count Neut % (Auto) Lymph % (Auto) [place] % (Auto) Eos % (Auto) Baso % (Auto) Neut # (Auto) Lymph # (Auto) [place] # (Auto) Eos # (Auto) Baso # (Auto) PT INR Sodium 136 L Potassium TNP Chloride 104 Carbon Dioxide 26 BUN 12 Creatinine 1.02 Estimated GFR > 60 BUN/Creatinine Ratio 11.8 Glucose 92 Calcium 9.0 Magnesium 2.0 Total Bilirubin 0.7 AST TNP ALT 19 Alkaline Phosphatase 42 Total Protein 6.9 Albumin 4.0 Globulin 2.9 Albumin/Globulin Ratio 1.4 SARS-CoV-2 (PCR) x-rays show a displaced right femoral neck fracture which is grossly displaced Assessment & Plan Assessment and plan (1) Subcapital fracture of neck of femur: Qualifiers: Encounter type: initial encounter Fracture type: closed Laterality: right Qualified Code(s): S72.011A - Unspecified intracapsular fracture of right femur, initial encounter for closed fracture Status: Acute (2) Somatic dysfunction of lower extremity: Status: Acute (3) Lumbar region somatic dysfunction: Status: Acute (4) Osteoarthritis: Status: Chronic (5) Osteoporosis: Status: Acute (6) Fibromyalgia: Status: Acute (7) Ulcerative colitis: Status: Acute (8) Cachexia: Status: Acute Plan I have recommended a right hip unipolar replacement. The procedure alternatives risks benefits and complications were discussed in detail. She has a history of significant osteoporosis. She also has a history of cachexia and she has a low BMI at 16.9 and is underweight. She is chronically on narcotics and takes methadone. She has a complicated problems because of her complex regional pain disorder as well as a chronic pain syndrome. The procedure alternatives risks benefits and complications were discussed in detail. Risk including but not limited to bleeding, fracture, infection, progressive osteoarthritic change in the acetabulum, instability, and chronic pain despite satisfactory fixation was discussed in detail. We will work on getting her set up for a right hip cemented unipolar. Time Spent With Patient Critical Care time: I spent a total of [] minutes of critical care time on this patient's care tod elba; this time is exclusive of procedural time.
[2022-01-08] MEDS: METHADONE 10 MG TABLET PO (20:22)
[2022-01-08] MEDS: SODIUM CHLORIDE 0.9% FLUSH 10 ML IV (21:07)
[2022-01-08 23:55] VITALS: BP 123/69; PULSE 89; RESP 18; TEMP 36.3; O2SAT 98
[2022-01-09] VITALS (14 sets, daily range): BP systolic 105–127; BP diastolic 68–81; PULSE 80–90; RESP 9–18; TEMP 36.2–37.1; O2SAT 93–100; BMI 16.9
--- NOTE | 2022-01-09 01:19 | PC.NURSE ---
Pt. been refusing to place alarcon catheter. Was able to pivot transfer from bed to bedside commode earlier. She's sound asleep since 2114, but awakened briefly when her VS was taken @ 2355. Will cont. POC & monitor.
[2022-01-09] MEDS: HYDROMORPHONE 0.5 MG INJ IV ×2 (03:58→11:46)
[2022-01-09] MEDS: SODIUM CHLORIDE 0.9% FLUSH 10 ML IV ×2 (03:59→10:00)
[2022-01-09 05:25] LABS: Add Manual Diff / Slide Review NO; Basophils Absolute Auto 0 /uL (0-100); Basophils Percent Auto 0.3 % (0-2); Eosinophils Absolute Auto 300 /uL (0-450); Hematocrit 27.1 % (36-46); Hemoglobin 9.2 g/dL (12.0-16.0); Lymphocytes Absolute Auto 1100 /uL (1100-4500); Lymphocytes Percent Auto 14.3 % (25-40); Mean Corpuscular Hemoglobin 30.2 PG (26-34); Mean Corpuscular Volume 88.6 fL (80-100); Monocytes Absolute Auto 500 /uL (0-900); Monocytes Percent Auto 5.7 % (3-14); Neutrophils Absolute Auto 6100 /uL (1500-7000); Neutrophils Percent Auto 75.7 % (50-75); Platelet Count 211 X10^3/uL (150-400); Red Blood Cell Count 3.06 X10^6/uL (4.0-5.2); Red Cell Distribution Width 13.2 % (11.6-14.8)
[2022-01-09] MEDS: clonazePAM 0.5 MG TABLET 1 MG PO ×2 (05:38→11:46)
[2022-01-09 05:43] LABS: Blood Urea Nitrogen 10 mg/dL (7-17); Calcium 9.5 mg/dL (8.4-10.2); Carbon Dioxide 30 mmol/L (22-32); Chloride 107 mmol/L (98-107); Estimated Glomerular Filt Rate > 60 mL/min (>60); Glucose 106 mg/dL (70-100); HEMOLYSIS < 15 (0-50); Potassium 4.1 mmol/L (3.4-5.1); Sodium 139 mmol/L (137-145)
[2022-01-09 05:49] LABS: HEMOLYSIS < 15 (0-50); Iron 37 ug/dL (37-170)
--- NOTE | 2022-01-09 05:55 | PC.NURSE ---
Requested Clonazepam for pain, I'm taking Clonazepam @ home for pain, especially for my back pain. Will cont. POC & monitor.
[2022-01-09 06:00] LABS: Percent Iron Saturation 12 % (15-50); Total Iron Binding Capacity 314 ug/dL (265-497); Transferrin 245 mg/dL (206-381)
[2022-01-09 06:23] LABS: TSH w/ Reflex to FT4 1.69 uIU/mL (0.47-4.68)
[2022-01-09 06:50] LABS: Folate 14.6 ng/mL (2.76-20.0); Vitamin B12 > 1000 pg/mL (239-931)
--- NOTE | 2022-01-09 07:43 | PM.PN.1 ---
Subjective Subjective Date Patient Seen: 01/09/22 Time Patient Seen: 12:13 Interval history: Feeling fine today and ready for hip surgery. Noted that she had past history of botched surgery so she is anxious about it. I reassured her that Dr. Knott is a great surgeon and will take great care of her. Exam Vital Signs (past 8 hours): - 01/08/22 23:55 01/09/22 06:00 Temperature 97.4 F L 97.4 F L Pulse Rate 89 90 Respiratory Rate 18 18 Blood Pressure 123/69 127/78 Pulse Oximetry 98 99 Oxygen Flow Rate 0 0 Oxygen Delivery Method Room Air Oxygen Flow Rate 0 Narrative Exam Narrative: GEN: no acute distress, very thin female with temporal wasting HEENT: moist mucous membranes, PERRL NECK: trachea midline, no JVD CV: regular rate and rhythm, no murmurs PULM: clear bilaterally ABD: soft, nontender, nondistended, no organomegaly EXT: pain to palpation of right hip NEURO: awake, alert, oriented, no focal deficits Objective Labs Result Diagrams: 01/09/22 05:00 01/09/22 05:00 Labs: Laboratory Results - last 24 hr 01/08/22 01/08/22 01/08/22 17:03 17:08 17:08 WBC 8.9 RBC 3.18 L Hgb 9.4 L Hct 28.2 L MCV 88.8 MCH 29.6 MCHC 33.4 RDW 13.2 Plt Count 210 Neut % (Auto) 77.5 H Lymph % (Auto) 12.4 L [place] % (Auto) 6.1 Eos % (Auto) 3.8 Baso % (Auto) 0.2 Neut # (Auto) 6900 Lymph # (Auto) 1100 [place] # (Auto) 500 Eos # (Auto) 300 Baso # (Auto) 0 PT 10.7 INR 1.0 Sodium Potassium Chloride Carbon Dioxide BUN Creatinine Estimated GFR BUN/Creatinine Ratio Glucose Calcium Magnesium Iron TIBC % Saturation Transferrin Total Bilirubin AST ALT Alkaline Phosphatase Total Protein Albumin Globulin Albumin/Globulin Ratio Vitamin B12 Folate TSH SARS-CoV-2 (PCR) Negative 01/08/22 01/08/22 01/09/22 17:08 17:08 05:00 WBC 8.0 RBC 3.06 L Hgb 9.2 L Hct 27.1 L MCV 88.6 MCH 30.2 MCHC 34.0 RDW 13.2 Plt Count 211 Neut % (Auto) 75.7 H Lymph % (Auto) 14.3 L [place] % (Auto) 5.7 Eos % (Auto) 4.0 Baso % (Auto) 0.3 Neut # (Auto) 6100 Lymph # (Auto) 1100 [place] # (Auto) 500 Eos # (Auto) 300 Baso # (Auto) 0 PT INR Sodium 136 L Potassium TNP Chloride 104 Carbon Dioxide 26 BUN 12 Creatinine 1.02 Estimated GFR > 60 BUN/Creatinine Ratio 11.8 Glucose 92 Calcium 9.0 Magnesium 2.0 Iron TIBC % Saturation Transferrin Total Bilirubin 0.7 AST TNP ALT 19 Alkaline Phosphatase 42 Total Protein 6.9 Albumin 4.0 Globulin 2.9 Albumin/Globulin Ratio 1.4 Vitamin B12 Folate TSH SARS-CoV-2 (PCR) 01/09/22 01/09/22 01/09/22 05:00 05:00 05:00 WBC RBC Hgb Hct MCV MCH MCHC RDW Plt Count Neut % (Auto) Lymph % (Auto) [place] % (Auto) Eos % (Auto) Baso % (Auto) Neut # (Auto) Lymph # (Auto) [place] # (Auto) Eos # (Auto) Baso # (Auto) PT INR Sodium 139 Potassium 4.1 Chloride 107 Carbon Dioxide 30 BUN 10 Creatinine 1.00 Estimated GFR > 60 BUN/Creatinine Ratio 10.0 Glucose 106 H Calcium 9.5 Magnesium Iron 37 TIBC 314 % Saturation 12 L Transferrin 245 Total Bilirubin AST ALT Alkaline Phosphatase Total Protein Albumin Globulin Albumin/Globulin Ratio Vitamin B12 > 1000 H Folate 14.6 TSH SARS-CoV-2 (PCR) 01/09/22 05:00 WBC RBC Hgb Hct MCV MCH MCHC RDW Plt Count Neut % (Auto) Lymph % (Auto) [place] % (Auto) Eos % (Auto) Baso % (Auto) Neut # (Auto) Lymph # (Auto) [place] # (Auto) Eos # (Auto) Baso # (Auto) PT INR Sodium Potassium Chloride Carbon Dioxide BUN Creatinine Estimated GFR BUN/Creatinine Ratio Glucose Calcium Magnesium Iron TIBC % Saturation Transferrin Total Bilirubin AST ALT Alkaline Phosphatase Total Protein Albumin Globulin Albumin/Globulin Ratio Vitamin B12 Folate TSH 1.69 SARS-CoV-2 (PCR) [facility] Medical History Allergies Anemia Ankle pain Anxiety disorder Cachexia Cervical somatic dysfunction Cervical spine pain Chronic back pain Chronic pain due to injury Colitis Cranial somatic dysfunction CRPS (complex regional pain syndrome type II) Fibromyalgia Fractures GERD (gastroesophageal reflux disease) GI bleeding Irritable bowel syndrome Lumbar region somatic dysfunction Migraines Osteoarthritis Osteoporosis Pelvic somatic dysfunction Peripheral neuropathy PTSD (post-traumatic stress disorder) Sacral pain Sacral region somatic dysfunction Scoliosis Screening for thyroid disorder Segmental and somatic dysfunction of abdomen and other regions Shoulder pain Somatic dysfunction of lower extremity Thoracic region somatic dysfunction Ulcerative colitis Weight loss, abnormal Surgical History Anesthesia History of bladder surgery Previous back surgery (~1997) Family History Father History of heart disease Stroke Grandfather Cancer Stroke Grandmother Diabetes mellitus Hyperlipidemia Hypertension Stroke Grandfather Cancer Mental health problem Grandmother Cancer Social History Smoking Status: Never smoker Assessment & Plan Assessment & Plan narrative: # acute right hip fracture -sustained after stepping into a hole on uneven ground. Did not fall. Likely related to her osteoporosis which must be severe given lack of significant trauma. -hip x-ray showed right displaced subcapital femoral fracture -Dr. Knott orthopedics consulted, plan for partial hip replacement -hip surgery today -[facility] -PT eval following surgery # acute on chronic normocytic anemia -hemoglobin 9.4 on admission, previously 11.3 -iron studies and B12/folate normal # severe protein calorie malnutrition -BMI 16.9 -dietitian consult # complex regional pain syndrome, chronic -continue home methadone 10 mg q.i.d. -continue laxatives while on narcotics # anxiety, chronic -continue home Klonopin 1 mg as needed Code status is full code. COVID negative. DVT prophylaxis with SCDs. Proxy is mother Viviana. I have reviewed home meds and used all available resources to reconcile the home meds. Dispo: D/c with HH PT vs SNF pending PT eval following surgery. Time Spent With Patient Critical Care time: I spent a total of [] minutes of critical care time on this patient's care today; this time is exclusive of procedural time.
--- NOTE | 2022-01-09 08:59 | PT-IP ANOTE ---
PT eval received. Reviewed EMR. pt with R hip fracture and awaiting surgery today. will d/c PT eval and will await for new PT eval order after surgery.
[2022-01-09] MEDS: SENNOSIDES 8.6 MG TABLET 17.2 MG PO (10:00)
[2022-01-09] MEDS: PANTOPRAZOLE DR 40 MG TABLET PO (10:00)
[2022-01-09] MEDS: METHADONE 10 MG TABLET PO ×2 (10:00→11:46)
[2022-01-09] MEDS: polyethylene glycoL 3350 17 GM POWD.PACK PO (10:00)
--- NOTE | 2022-01-09 14:43 | DIET.CONS ---
Dietary Consultation Note Admission Date: 01/08/2022 17:26 Assessment: 51 y/o F admitted with hip fx. RD consulted for low BMI. Mother at bedside today. Celeste lives and eats her one meal per day with her mother. States she often grazes through the day on smoked salmon, fruit, and jerky and then eats one meal (4oz steak, 1 potato, vegetables + slice of pie), which she describes as big. Endorses h/o Ecoli infection that scarred GI (stomach and intestines). Feels that this is part of the difficulty in gaining wt. Endorses 10 colonoscopies in 15 years. States she cannot eat a lot of protein due to stomach issues and that this may cause emesis. Denies disordered eating. NFPE: severe temporal scooping, orbital depression, prominent clavicle No weight loss. In fact she has gained 1.8kg in the last three months. She attributes this to more frequent intake. Very low BMI of 16.9. Beverages mostly gatorade to reportedly keep Na up. Ht: 167.64 cm Wt: 47.627 kg BMI: 16.9 UBW: 73-47kg Last BM: 01/08/22 (01/08/22 18:15) MNA: 11 Marquis Score: 19 Diet: 01/08/22 Dinner General (Regular) Diet Diet Modifications: 01/09/22 00:01 NPO Diet Diet Modifications: NPO Type: NPO after Midnight 01/09/22 Breakfast Clear Liquid Diet Diet Modifications: Clear liquid breakfast then NPO after breakfast Nutrition Percent Meal Consumed 10 01/09/22 09:00 Labs: RBC 3.06 X10^6/uL (4.0-5.2) L 01/09/22 05:00 Hgb 9.2 g/dL (12.0-16.0) L 01/09/22 05:00 Hct 27.1 % (36-46) L 01/09/22 05:00 Creatinine 1.00 mg/dL (0.52-1.04) 01/09/22 05:00 Iron 37 ug/dL (37-170) 01/09/22 05:00 % Saturation 12 % (15-50) L 01/09/22 05:00 Nutrition Diagnosis: Chronic moderate protein calorie malnutrition r/t reported GI issues limiting food intake aeb BMI <18.5, significant signs of muscle and fat losses with NFPE, pt reported GI symptoms of emesis with protein and limited food intake as a result for more than one month Interventions: 1. Nutrition education of importance of protein intake for healing and healthy wt. Discussed importance of frequent meals. 2. ONS BID post sx EER: 1645kcals (35kcals/kg per BMI) 70-75g PRO (1.5-1.6g/kg per malnutrition) Monitoring/Evaluations: PO, weight, ONS tolerance Electronically Signed by: Marlee Montana 01/09/22 14:43 Clinical Dietitian [address] [id number]
[2022-01-09] MEDS: LACTATED RINGERS 1,000 ML 42 ML IV (15:04)
[2022-01-09] MEDS: TRANEXAMIC ACID 1,000 MG in SODIUM CHLORIDE 0.9% 100 ML 200 MG IV (17:25)
[2022-01-09] MEDS: CEFAZOLIN 2 GM IN 0.9 % NACL 100 ML IV (17:25)
--- NOTE | 2022-01-09 17:43 | SUR.OPER ---
Lateral on padded OR bed. Gel axillary roll. Arms secured on padded armboard with pillow supporting top arm. Padded hip positioner braces x4 - anterior and posterior chest and pelvis. Additional gel pad used anterior pelvis. Gel pad under bottom leg from knee to foot and secured with tape over sheet.
[2022-01-09] MEDS: BUPIVACAINE 0.5% (PF) VIAL 30 ML INJ (17:55)
[2022-01-09] MEDS: BUPIVACAINE LIPOSOME 266 MG/20 ML VIAL INJ (17:58)
--- NOTE | 2022-01-09 18:42 | P.OP_ITS ---
Operative Date/Time/Diagnoses Date of procedure: 01/09/22 Time of procedure: 17:10 Pre-op diagnosis: right femoral neck fracture Post-op diagnosis: same Procedure & Clinicians Procedure: right hip unipolar Same procedure as scheduled: Yes Indications: This is a 51-year-old female who stepped in a hole twisted her leg and developed acute onset of right hip pain. She has multiple medical problems. She has a history of a injury to her sciatic nerve in the remote past at a chronic pain syndrome spent many years in mobilized in bed and has known severe osteoporosis. Her x-rays showed a grossly displaced right femoral neck fracture she is brought the operating room for a right hip unipolar. Surgeon: Dayana Knott Manager Compensation: [place] García Anesthesia Type: General Operative Notes Findings: Displaced right femoral neck fracture, normal appearing acetabulum, soft bone, good stability Closure Type: primary Specimen(s): none sent Prosthetic devices, grafts, tissues, transplants, or devices: Knott and nephew size 11 cemented Synergy stem, 44 mm unipolar head, +0 neck, size 10 distal cement restrictor Estimated Blood Loss (mL): 200 Blood products transfused: none Procedure in detail: The patient was seen in the pre-operative area, where the patient identified the right hip as the operative site and this was marked with my initials. The patient received pre-operative antibiotics and was taken to the operating room and placed on the operative table in the supine position after satisfactory anesthesia. A manager maritime out was performed. Patient was placed in the lateral decubitus position and all bony prominences were carefully padded and the arms were appropriately position. The right lower extremity was prepared from the ankle to the iliac crest with ChloroPrep in the usual fashion and draped through sterile drapes. The hip was approached through posterolateral approach. Dissection was carried out down through skin and subcutaneous tissues. The fascia was opened. Gelpi retractors were placed. A Charnley retractor was placed. A small amount of inflamed bursa was resected. The piriformis was identified and protected. The other short external rotators and capsule were carefully stripped from the posterior aspect of the femur. They were tagged and carefully retracted. The femoral neck was brought up and an osteotomy was made of the residual femoral neck approximately 1 fingerbreadth above the lesser trochanter. The head was removed without difficulty. It was carefully sized. The acetabulum was meticulously irrigated with normal saline. There were [mild] changes in the acetabulum. The acetabulum was carefully protected with an E tape. The canal was opened with a box cutting osteotome, followed by a T-handled reamer and a lateralizing reamer. The tapered reamers were then used, followed by sequential broaching. A trial head and neck were then placed and the hip relocated and checked for leg length and stability. The patient was stable in the position of sleep, of squatting, and could be put through a range of motion with 45 degrees internal rotation without dislocation. At 90 degrees flexion, internal rotation to 80? was possible before dislocation. This was felt to be satisfactory and the appropriate components were opened, and the trials were removed. The femoral canal was sized and a distal cement restrictor was placed. The bone was meticulously cleaned with pulse lavage. The canal was packed with vaginal packing with epinephrine. Antibiotics cement was mixed and carefully pressurized into the femoral canal. The femoral component was placed without difficulty. A repeat trial reduction showed good range of motion and stability. We did a brief Betadine soak after the cement had hardened. Patient had good range of motion and stability. The final head and neck were placed after carefully irrigating the wound. The capsulomuscular flap was then repaired to the greater trochanter though an awl hole using the tag sutures. The short external rotators were repaired with polyester. The fascia sai was closed with Vicryl. The subcutaneous layer was closed with a barbed suture, and the skin with a running 3-0 V-Lock suture and surgical glue. A suki dressing was applied and the patient was taken to recovery having tolerated the procedure well. Complications: none Post-operative Condition: stable Disposition: Acute Care Plan for aftercare: The patient will be maintained on a standard total hip replacement protocol with weight bearing as tolerated and posterior hip precautions. The patient will receive Aspirin and sequential compression devices for DVT prophylaxis. The patient will be discharged home when safe for the home environment.
--- NOTE | 2022-01-09 19:00 | PC.NURSE ---
Off to OR at 1430. Still awaiting return of pt.. Pt reporting adaq. pain control on current pain med regime. Mother with her at the time she went to OR.
--- NOTE | 2022-01-09 19:20 | DI.RAD.S_ITS ---
PROCEDURE: XR HIP W PEL IF DONE RT 2V INDICATIONS: post op TECHNIQUE: AP pelvis with lateral view of the right hip. COMPARISON: [facility], CR, XR HIP W PEL IF DONE RT 2V, 01/08/2022, 16:28. FINDINGS: Bones: There are postsurgical changes status post interval right hip arthroplasty. The hip prosthesis demonstrates expected alignment. No suspicious periprosthetic lucencies. No fractures. Soft tissues: There are overlying postsurgical changes within the soft tissues including fluid and gas in the joint space. IMPRESSION: 1. Expected postsurgical changes status post right hip arthroplasty. Dictated by: Liu Valerio M.D. on 01/09/2022 at 21:31 Approved by: Liu Valerio M.D. on 01/09/2022 at 21:32
[2022-01-09] MEDS: HYDROMORPHONE 2 MG INJ IV (19:28)
[2022-01-09] MEDS: OXYCODONE IR 5 MG TABLET PO (19:40)
--- NOTE | 2022-01-09 19:57 | SUR.PHASEI ---
Stable PACU stay, medicvated with Dilaudid and oxycodone, report called, pt transported up to room in stable condition.
--- NOTE | 2022-01-09 20:12 | SUR.PHASEI ---
Pt left with Renetta in stable condition, bed down. locked SCD's on.
[2022-01-09] MEDS: LACTATED RINGERS 1,000 ML 125 ML IV (21:19)
[2022-01-09] MEDS: DOCUSATE 100 MG CAPSULE PO (21:19)
[2022-01-09] MEDS: ASPIRIN EC 81 MG TABLET PO (21:19)
[2022-01-10] MEDS: ACETAMINOPHEN 325 MG TABLET 650 MG PO ×5 (00:36→23:35)
[2022-01-10] MEDS: IBUPROFEN 400 MG TABLET PO ×5 (00:36→23:35)
[2022-01-10] MEDS: CEFAZOLIN 2 GM IN 0.9 % NACL 100 ML IV ×2 (02:48→10:32)
[2022-01-10 04:00] VITALS: BP 105/69; PULSE 76; RESP 17; TEMP 36.8; O2SAT 100
[2022-01-10 05:27] LABS: Add Manual Diff / Slide Review NO; Basophils Absolute Auto 0 /uL (0-100); Basophils Percent Auto 0.3 % (0-2); Eosinophils Absolute Auto 0 /uL (0-450); Hematocrit 25.4 % (36-46); Hemoglobin 8.6 g/dL (12.0-16.0); Lymphocytes Absolute Auto 600 /uL (1100-4500); Lymphocytes Percent Auto 6.1 % (25-40); Mean Corpuscular HGB Conc 33.9 % (30-36); Mean Corpuscular Hemoglobin 30.1 PG (26-34); Mean Corpuscular Volume 88.7 fL (80-100); Monocytes Absolute Auto 400 /uL (0-900); Monocytes Percent Auto 4.4 % (3-14); Neutrophils Absolute Auto 8700 /uL (1500-7000); Neutrophils Percent Auto 89.2 % (50-75); Platelet Count 227 X10^3/uL (150-400); Red Blood Cell Count 2.87 X10^6/uL (4.0-5.2); Red Cell Distribution Width 12.8 % (11.6-14.8); White Blood Cell Count 9.8 X10^3/uL (4.5-11.0)
[2022-01-10 05:33] LABS: BUN Creatinine Ratio 11.4 (6-22); Blood Urea Nitrogen 10 mg/dL (7-17); Carbon Dioxide 26 mmol/L (22-32); Chloride 107 mmol/L (98-107); Estimated Glomerular Filt Rate > 60 mL/min (>60); Glucose 137 mg/dL (70-100); HEMOLYSIS < 15 (0-50); Potassium 4.2 mmol/L (3.4-5.1); Sodium 138 mmol/L (137-145)
[2022-01-10] MEDS: OXYCODONE IR 5 MG TABLET PO (06:24)
[2022-01-10 08:16] VITALS: BP 98/64; PULSE 84; RESP 16; TEMP 36.7; O2SAT 98
--- NOTE | 2022-01-10 08:56 | P.PN_ITS ---
Subjective Subjective Date Patient Seen: 01/10/22 Time Patient Seen: 08:56 Interval history: Patient's pain is been moderate. Denies fever or chills. No nausea or vomiting. Patient lives with her mother in of stairs room. She states she has approximately 10 steps into her room. She states she likely will be able to stay down stairs once he is discharged home. Exam Vital Signs (past 8 hours): - 01/10/22 04:00 Temperature 98.3 F Pulse Rate 76 Respiratory Rate 17 Blood Pressure 105/69 Pulse Oximetry 100 Oxygen Flow Rate 0 Oxygen Delivery Method Room Air Oxygen Flow Rate 0 Narrative Exam Narrative: 51-year-old female resting comfortably in bed in no apparent distress. Doug dressing is on and functioning. Dressing is Clean, dry, intact.. Motor functions intact bilateral lower extremities. Sensation grossly intact to light touch bilateral lower extremities. Const General: cooperative and frail appearing Nutritional Appearance: cachectic Orientation: alert and oriented x3 HENMT Head: normal to inspection Resp Effort & Inspection: normal respiratory effort and able to speak in complete sentences Objective Labs Result Diagrams: 01/10/22 05:10 01/10/22 05:10 Labs: Laboratory Results - last 24 hr 01/10/22 01/10/22 05:10 05:10 WBC 9.8 RBC 2.87 L Hgb 8.6 L Hct 25.4 L MCV 88.7 MCH 30.1 MCHC 33.9 RDW 12.8 Plt Count 227 Neut % (Auto) 89.2 H Lymph % (Auto) 6.1 L [place] % (Auto) 4.4 Eos % (Auto) 0.0 L Baso % (Auto) 0.3 Neut # (Auto) 8700 H Lymph # (Auto) 600 L [place] # (Auto) 400 Eos # (Auto) 0 Baso # (Auto) 0 Sodium 138 Potassium 4.2 Chloride 107 Carbon Dioxide 26 BUN 10 Creatinine 0.88 Estimated GFR > 60 BUN/Creatinine Ratio 11.4 Glucose 137 H Calcium 9.0 PFSH Medical History Allergies Anemia Ankle pain Anxiety disorder Cachexia Cervical somatic dysfunction Cervical spine pain Chronic back pain Chronic pain due to injury Colitis Cranial somatic dysfunction CRPS (complex regional pain syndrome type II) Fibromyalgia Fractures GERD (gastroesophageal reflux disease) GI bleeding Irritable bowel syndrome Lumbar region somatic dysfunction Migraines Osteoarthritis Osteoporosis Pelvic somatic dysfunction Peripheral neuropathy PTSD (post-traumatic stress disorder) Sacral pain Sacral region somatic dysfunction Scoliosis Screening for thyroid disorder Segmental and somatic dysfunction of abdomen and other regions Shoulder pain Somatic dysfunction of lower extremity Thoracic region somatic dysfunction Ulcerative colitis Weight loss, abnormal Surgical History Anesthesia History of bladder surgery Previous back surgery (~1997) Family History Father History of heart disease Stroke Grandfather Cancer Stroke Grandmother Diabetes mellitus Hyperlipidemia Hypertension Stroke Grandfather Cancer Mental health problem Grandmother Cancer Social History household members: family Smoking Status: Never smoker alcohol intake: never Assessment & Plan Post-op Postoperative Procedures: Procedures Operation Date: 01/09/22 14:15 Actual Procedure Side Surgeon p unipolar hip Right Dayana Knott MD Postoperative day: 1 Postoperative status: doing well Postoperative status narrative: Patient stable status post right hip unipolar Postoperative plan: routine post-op care Postoperative plan narrative: Patient will be maintained on standard total hip replacement protocol with weight-bearing as tolerated and posterior hip precautions Aspirin and SCDs for DVT prophylaxis Mobilize with physical therapy Discharge likely tomorrow if safe for home environment
[2022-01-10] MEDS: ASPIRIN EC 81 MG TABLET PO ×2 (09:34→20:23)
[2022-01-10] MEDS: CYCLOBENZAPRINE 10 MG TABLET PO ×2 (09:34→20:24)
[2022-01-10] MEDS: OXYCODONE IR 10 MG TABLET PO ×3 (09:35→20:23)
[2022-01-10] MEDS: DOCUSATE 100 MG CAPSULE PO ×2 (09:35→20:24)
[2022-01-10] MEDS: LIDOCAINE PATCH 1 EACH ADH..PATCH TOP (09:35)
[2022-01-10] MEDS: polyethylene glycoL 3350 17 GM POWD.PACK PO ×2 (09:36→20:25)
--- NOTE | 2022-01-10 10:20 | PT.IIE ---
Current Diagnoses Ulcerative colitis, unspecified, without complications (01/08/22) Unspecified osteoarthritis, unspecified site (01/08/22) Fibromyalgia (01/08/22) Age-related osteoporosis without current pathological fracture (01/08/22) Segmental and somatic dysfunction of lumbar region (01/08/22) Segmental and somatic dysfunction of lower extremity (01/08/22) Cachexia (01/08/22) Unspecified intracapsular fracture of right femur, initial encounter for closed fracture (01/08/22) Surgery Performed Operation Date: 01/09/22 14:15 Actual Procedures p unipolar hip(Right) - Dayana Kntot MD Surgical History (Last Reviewed 01/10/22 @ 08:58 by Cleveland García PA-C) Anesthesia History of bladder surgery Previous back surgery (~1997) Medical History (Last Reviewed 01/10/22 @ 08:58 by Cleveland García PA-C) Allergies Anemia Ankle pain Anxiety disorder Cachexia Cervical somatic dysfunction Cervical spine pain Chronic back pain Chronic pain due to injury Colitis Cranial somatic dysfunction CRPS (complex regional pain syndrome type II) Fibromyalgia Fractures GERD (gastroesophageal reflux disease) GI bleeding Irritable bowel syndrome Lumbar region somatic dysfunction Migraines Osteoarthritis Osteoporosis Pelvic somatic dysfunction Peripheral neuropathy PTSD (post-traumatic stress disorder) Sacral pain Sacral region somatic dysfunction Scoliosis Screening for thyroid disorder Segmental and somatic dysfunction of abdomen and other regions Shoulder pain Somatic dysfunction of lower extremity Thoracic region somatic dysfunction Ulcerative colitis Weight loss, abnormal Physical Therapy Inpatient Evaluation/Re-Eval M1 PT/OT-IP Prior Functional Status Start: 01/10/22 12:12 Freq: NEEDED Status: Active Protocol: Document 01/10/22 10:20 AB (Rec: 01/10/22 12:30 AB [id number]) Medical Review Prior Functional Status Medical History Reviewed Yes Communication able to make needs known; tends to get anxious easily affecting following directions Mobility and Gait pt stated that she is modified independent with all mobilities and ambulation without AD but depending on how she feels due to her reflex sympathetic dystrophy per pt. stated that when she needs assistance, her mother assisters her. pt usually furniture cruises but also says that she can ambulate outdoors without AD for ~ 1/4 mile but also uses a w/c when needed. Social History Household Members family Living Arrangements House Number of Floors (Floors) Two Floors Number of Stairs To Enter/Railing? pt plans to stay on first level of the house 3 steps to enter without rails (stated that there is a plan for rails to be put in or a ramp but don't know when) Home Environment High Toilet,Tub/Shower Home Equipment Front Wheel Walker,Manual Wheelchair,Hand Held Shower, Grab Bars In Shower Additional Social History Comment pt's mother will assist pt pt stated that she usually does sponge bathing but when she takes a shower, her mother usually assists her M2 PT-IP Current Condition Start: 01/10/22 12:12 Freq: NEEDED Status: Active Protocol: Document 01/10/22 10:20 AB (Rec: 01/10/22 12:30 AB [email or web address]) Physical Therapy Current Condition Current Condition Evaluation Date 01/10/22 Treatment Diagnosis R hip fx s/p hemiarthroplasty; difficulty in walking Onset Date 01/08/22 M3 PT-IP Subjective Start: 01/10/22 12:12 Freq: NEEDED Status: Active Protocol: Document 01/10/22 10:20 AB (Rec: 01/10/22 12:30 AB [email or web address]) Subjective Physical Therapy Visit Type Type Initial Evaluation Visit Start Time 10:20 Visit Stop Time 11:32 Total Visit Minutes 72 Number of BUFFING AND SUEDING MACHINE OPERATOR Visits 0 Physical Therapy Visit Comments Patient Comments agreeable to do PT M4 PT-IP Mobility and Gait Start: 01/10/22 12:12 Freq: NEEDED Status: Active Protocol: Document 01/10/22 10:20 AB (Rec: 01/10/22 12:30 AB [email or web address]) PT-Bed Mobility Assessment Supine to Sit Supine to Sit Standby Assistance PT-Transfer Assessment Sit to and From Stand Sit to and from Stand Contact Guard Assistance, Minimal Assistance,1 Person Assistance,Use of Upper Extremities Equipment Transfer Assistive Device Gait Belt,Front Wheeled Walker Orthotic/Prosthetic Devices or Brace: No Transfers Transfer Destination Chair Transfer Technique ambulated Transfer Ability Level of Assist Minimal Assistance,1 Person Assistance,Use of Upper Extremities Comments Mobility Comments educated pt on posterior hip precautions on R but pt requires cues to recall. pt easily gets anxious and distracted. completed supine to sit SBA and max cues for hip precautions. able to sit on EOB SBA. completed sit to stand min A and max cues for techniques and hip precautions . and ambulated to the chair using FWW min A and max cues. pt tends to hop and not weight bear on RLE during standing and ambulation. educated on safety and use of RLE. pt sat on chair. educated on sit<>stand technique and pt completed x 4 reps with max cues initially min A but only CGA after 2 reps. positioned pt on chair. call light and table placed within reach. caregiver training set up at 130 pm today. Gait Assessment Gait Gait Assistance Required: Minimum Assistance Distance (Feet) 12 Able to Maintain Weight Bearing Status Yes During Gait Assistive Devices Assistive Device Gait Belt,Front Wheeled Walker Orthotic/Prosthetic Devices or Brace: No Gait Deviations General Gait Pattern Antalgic,Decreased Stride Length,Decreased Feet Clearance Factors Limiting Gait Function Factors Limiting Gait Function Decreased Activity Tolerance, Decreased Strength,Difficulty Following Directions,Limited Range of Motion,Pain,Poor Balance,Poor Safety Awareness PT-Balance Assessment Sitting Balance and Reactions Static Sitting Balance Ability Good Dynamic Sitting Balance Ability Good Standing Balance and Reactions Static Standing Balance Ability Fair Dynamic Standing Balance Ability Fair Device Used FWW M5 PT-IP Objective Assessments Start: 01/10/22 12:12 Freq: NEEDED Status: Active Protocol: Document 01/10/22 10:20 AB (Rec: 01/10/22 12:30 AB [email or web address]) Orientation Orientation/Cognition Level of Alertness Alert Orientation Name,Place,Situation Language Function Ability No Deficits Noted Safety Awareness Decreased Safety Awareness Memory Description Short Term Impaired Gross Range of Motion Lower Extremity ROM Assessment Within Functional Limits Strength Lower Extremity Strength Assessment Right Impaired Hip 4-/5 Knee 4-/5 Sensation Assessment Sensation Gross Sensation WNL Muscle Tone Muscle Tone WNL Yes M6 PT-IP Treatment Start: 01/10/22 12:12 Freq: NEEDED Status: Active Protocol: Document 01/10/22 10:20 AB (Rec: 01/10/22 12:30 AB [email or web address]) Physical Therapy Treatment Education Education Provided Precautions,Weight Bearing Status,Post-Op Packet,Safety M7 PT-IP Assessment and Plan Start: 01/10/22 12:12 Freq: NEEDED Status: Active Protocol: Document 01/10/22 10:20 AB (Rec: 01/10/22 12:30 AB [email or web address]) PT Summary Assessment and Plan Potential Rehabilitation Potential Fair Status of Condition at Evaluation Evolving Summary Impairments Pain,ROM,Strength,Balance, Coordination,Sensation,Tone, Cognition,Bed Mobility, Transfers,Gait,Activity Tolerance Assessment Summary pt requiring CGA to min A with mobiltiy using FWW but max cues for hip precautions and safety. caregiver training set up today at 130 pm. will continue to assess progress. pt will need HHPT. Goals Bed Mobility Goal Independent Transfer Goal Independent,Front Wheeled Walker Gait Goal Independent,Front Wheel Walker Gait Distance 200 Other Goals up/down 3 steps HOUSING ASSISTANT PROPERTY MANAGER/SPC CGA Days to Meet Goals 5 Frequency of Treatment Frequency Of Treatment Twice a Day Treatment Plan Physical Therapy Treatment Plan Bed Mobility Training,Transfer Training,Gait Training, Therapeutic Exercise,Balance Retraining,Post Op Education, Discharge Planning,Hot or Cold Pack,Neuromuscular Re-ed, Coordination Retraining,Manual Therapy Precautions Posterior Hip Precautions No Hip Flexion > 90 degrees,No Hip Internal Rotation,No Hip Adduction Weight Bearing Status Weight Bearing Status Weight Bear as Tolerated Allowed Weight Bearing Amount (enter % RLE WBAT or #) (%) Recommendations To Nursing Amount of Assist Needed 1 Person Assist Discharge Recommendations PT Discharge Recommendations Home with 28/12 Assist Available,Home Health Transportation Needs at Discharge Private Vehicle
[2022-01-10] MEDS: METHADONE 10 MG TABLET PO ×4 (10:32→20:24)
--- NOTE | 2022-01-10 13:45 | PT.IPTN ---
Current Diagnoses Ulcerative colitis, unspecified, without complications (01/08/22) Unspecified osteoarthritis, unspecified site (01/08/22) Fibromyalgia (01/08/22) Age-related osteoporosis without current pathological fracture (01/08/22) Segmental and somatic dysfunction of lumbar region (01/08/22) Segmental and somatic dysfunction of lower extremity (01/08/22) Cachexia (01/08/22) Unspecified intracapsular fracture of right femur, initial encounter for closed fracture (01/08/22) Surgery Performed Operation Date: 01/09/22 14:15 Actual Procedures p unipolar hip(Right) - Dayana Knott MD Physical Therapy Treatment Note M2 PT-IP Current Condition Start: 01/10/22 12:12 Freq: NEEDED Status: Active Protocol: Document 01/10/22 10:20 AB (Rec: 01/10/22 12:30 AB [email or web address]) Physical Therapy Current Condition Current Condition Evaluation Date 01/10/22 Treatment Diagnosis R hip fx s/p hemiarthroplasty; difficulty in walking Onset Date 01/08/22 M3 PT-IP Subjective Start: 01/10/22 12:12 Freq: NEEDED Status: Active Protocol: Document 01/10/22 13:45 AB (Rec: 01/10/22 16:02 AB [email or web address]) Subjective Physical Therapy Visit Type Type Treatment Note Visit Start Time 13:45 Visit Stop Time 14:37 Total Visit Minutes 52 Number of MOLD MAINTENANCE TECHNICIAN Visits 0 Physical Therapy Visit Comments Patient Comments pt is agreeable to do PT M4 PT-IP Mobility and Gait Start: 01/10/22 12:12 Freq: NEEDED Status: Active Protocol: Document 01/10/22 13:45 AB (Rec: 01/10/22 16:02 AB [id number]) PT-Bed Mobility Assessment Supine to Sit Supine to Sit Standby Assistance PT-Transfer Assessment Sit to and From Stand Sit to and from Stand Contact Guard Assistance, Minimal Assistance,1 Person Assistance,Use of Upper Extremities Equipment Transfer Assistive Device Gait Belt,Front Wheeled Walker Orthotic/Prosthetic Devices or Brace: No Transfers Transfer Destination Toilet Transfer Technique ambulation Transfer Ability Level of Assist Contact Guard Assistance, Minimal Assistance,1 Person Assistance,Use of Upper Extremities Comments Mobility Comments pt's mother present for caregiver training. educated pt's mother on pt's hip precautions. pt continue to require cues to recall her hip precautions but mom was able to cue pt. pt completed supine to sit SBA. educated pt's mom on how to use safety belt and how to assist pt. Mom was able to don safety belt on, assisted pt with sit to stand min A and max cues. repeated sit <>stand x 3 with initial cues from PT and then mom was able to cue pt. pt ambulated to the toilet with caregiver assisting using fWW CGA to min A. Mom was able to assist pt with toileting needs. pt ambulated to the chair using fWW CGA to min A with mom assisting. educated pt and mom on sit <>stand techniques again. educated on stair climbing technique and pt's mom clarified that they have L rail ascending to enter the house. mom assisted pt with sit to stand from the chair and pt completed ambulation ~ 100 ft towards the stairs using fWW with mom assisting. PT demonstrated and educated stair climbing technique again . mom assisted pt with up/ down stairs min A and max cues with initial cues from PT but completed with just mom providing cues on 2nd set. assisted pt back to her room. OT took over. Gait Assessment Gait Gait Assistance Required: Contact Guard Assist,Minimum Assistance Distance (Feet) 100 Able to Maintain Weight Bearing Status Yes During Gait Assistive Devices Assistive Device Gait Belt,Front Wheeled Walker Orthotic/Prosthetic Devices or Brace: No Gait Deviations General Gait Pattern Antalgic,Decreased Stride Length,Decreased Feet Clearance Factors Limiting Gait Function Factors Limiting Gait Function Decreased Activity Tolerance, Decreased Strength,Limited Range of Motion,Pain,Poor Balance,Poor Safety Awareness Stair Climbing Assessment Evaluation Level of Assist On Stairs Minimal Assistance Devices Stair Climbing Assistive Devices Left Railing Technique/Endurance Stair Climbing Direction Ascend and Descend Stair Climbing Technique Step to Step Number of Steps Climbed 3 Stair Climbing Set # Repetitions (reps) 2 Comments Stair Climbing Comments pls see mobility section for details M5 PT-IP Objective Assessments Start: 01/10/22 12:12 Freq: NEEDED Status: Active Protocol: Document 01/10/22 10:20 AB (Rec: 01/10/22 12:30 AB [email or web address]) Orientation Orientation/Cognition Level of Alertness Alert Orientation Name,Place,Situation Language Function Ability No Deficits Noted Safety Awareness Decreased Safety Awareness Memory Description Short Term Impaired Gross Range of Motion Lower Extremity ROM Assessment Within Functional Limits Strength Lower Extremity Strength Assessment Right Impaired Hip 4-/5 Knee 4-/5 Sensation Assessment Sensation Gross Sensation WNL Muscle Tone Muscle Tone WNL Yes M6 PT-IP Treatment Start: 01/10/22 12:12 Freq: NEEDED Status: Active Protocol: Document 01/10/22 13:45 AB (Rec: 01/10/22 16:02 AB [email or web address]) Physical Therapy Treatment Education Education Provided Precautions,Safety M7 PT-IP Assessment and Plan Start: 01/10/22 12:12 Freq: NEEDED Status: Active Protocol: Document 01/10/22 13:45 AB (Rec: 01/10/22 16:02 AB [email or web address]) PT Summary Assessment and Plan Potential Rehabilitation Potential Good Summary Impairments Pain,ROM,Strength,Balance, Coordination,Sensation, Cognition,Bed Mobility, Transfers,Gait,Activity Tolerance Progress Towards Goals Slow Progress - Other Assessment Summary caregiver training completed and pt's mother was able to safely assist pt with mobility using FWW. pt may go home when medically stable. Goals Bed Mobility Goal Independent Transfer Goal Independent,Front Wheeled Walker Gait Goal Independent,Front Wheel Walker Gait Distance 200 Other Goals up/down 3 steps L rail Days to Meet Goals 5 Frequency of Treatment Frequency Of Treatment Twice a Day Treatment Plan Physical Therapy Treatment Plan Bed Mobility Training,Transfer Training,Gait Training, Therapeutic Exercise,Balance Retraining,Post Op Education, Discharge Planning,Hot or Cold Pack,Neuromuscular Re-ed, Coordination Retraining,Manual Therapy Precautions Posterior Hip Precautions No Hip Flexion > 90 degrees,No Hip Internal Rotation,No Hip Adduction Weight Bearing Status Weight Bearing Status Weight Bear as Tolerated Allowed Weight Bearing Amount (enter % RLE WBAT or #) (%) Recommendations To Nursing Amount of Assist Needed 1 Person Assist Discharge Recommendations PT Discharge Recommendations Home with 28/12 Assist Available,Home Health Transportation Needs at Discharge Private Vehicle
--- NOTE | 2022-01-10 15:00 | OT.IP.EVAL ---
Current Diagnoses Ulcerative colitis, unspecified, without complications (01/08/22) Unspecified osteoarthritis, unspecified site (01/08/22) Fibromyalgia (01/08/22) Age-related osteoporosis without current pathological fracture (01/08/22) Segmental and somatic dysfunction of lumbar region (01/08/22) Segmental and somatic dysfunction of lower extremity (01/08/22) Cachexia (01/08/22) Unspecified intracapsular fracture of right femur, initial encounter for closed fracture (01/08/22) Surgery Performed Operation Date: 01/09/22 14:15 Actual Procedures p unipolar hip(Right) - Dayana Krystal Knott MD Past Medical History (Last Reviewed 01/10/22 @ 08:58 by Cleveland García PA-C) Allergies Anemia Ankle pain Anxiety disorder Cachexia Cervical somatic dysfunction Cervical spine pain Chronic back pain Chronic pain due to injury Colitis Cranial somatic dysfunction CRPS (complex regional pain syndrome type II) Fibromyalgia Fractures GERD (gastroesophageal reflux disease) GI bleeding Irritable bowel syndrome Lumbar region somatic dysfunction Migraines Osteoarthritis Osteoporosis Pelvic somatic dysfunction Peripheral neuropathy PTSD (post-traumatic stress disorder) Sacral pain Sacral region somatic dysfunction Scoliosis Screening for thyroid disorder Segmental and somatic dysfunction of abdomen and other regions Shoulder pain Somatic dysfunction of lower extremity Thoracic region somatic dysfunction Ulcerative colitis Weight loss, abnormal Surgical History (Last Reviewed 01/10/22 @ 08:58 by Cleveland García PA-C) Anesthesia History of bladder surgery Previous back surgery (~1997) Occupational Therapy Inpatient Evaluation/Re-Eval M1 PT/OT-IP Prior Functional Status Start: 01/10/22 12:12 Freq: NEEDED Status: Active Protocol: Document 01/10/22 14:57 [facility] (Rec: 01/10/22 15:14 [facility] [id number]) Medical Review Prior Functional Status Medical History Reviewed Yes Communication able to make needs known; tends to get anxious easily affecting following directions Mobility and Gait pt stated that she is modified independent with all mobilities and ambulation without AD but depending on how she feels due to her reflex sympathetic dystrophy per pt. stated that when she needs assistance, her mother assists her. pt usually furniture cruises but also says that she can ambulate outdoors without AD for ~ 1/4 mile but also uses a w/c when needed. Activities of Daily Living and IADL's Pt usually sponges off for bathing needs and if pt's reflex sympathetic dystrophy flares up needing assist from her mom. Social History Household Members family Living Arrangements House Number of Floors (Floors) Two Floors Number of Stairs To Enter/Railing? pt plans to stay on first level of the house 3 steps to enter without rails (stated that there is a plan for rails to be put in or a ramp but don't know when) Home Environment High Toilet,Tub/Shower Home Equipment Front Wheel Walker,Manual Wheelchair,Hand Held Shower, Grab Bars In Shower Additional Social History Comment pt's mother will assist pt pt stated that she usually does sponge bathing but when she takes a shower, her mother usually assists her M2 OT-IP Current Condition Start: 01/10/22 14:57 Freq: Status: Active Protocol: Document 01/10/22 14:57 [facility] (Rec: 01/10/22 15:14 [facility] [id number]) Occupational Therapy Current Condition Current Condition Evaluation Date 01/10/22 Treatment Diagnosis Right femoral neck fracture, s /p Right hip unipolar Diagnosis Onset Date 01/08/22 Post Operative Precautions Posterior Hip Precautions No Hip Flexion > 90 degrees,No Hip Internal Rotation,No Hip Adduction M3 OT- IP Subjective and Pain Start: 01/10/22 14:57 Freq: Status: Active Protocol: Document 01/10/22 14:57 [facility] (Rec: 01/10/22 15:14 [facility] [id number]) OT- Subjective Occupational Therapy Visit Type Type Initial Evaluation Visit Start Time 14:45 Visit Stop Time 15:00 Occupational Therapy Visit Comments Patient Comments Pt and her mother just finishing up caregiver training with PT and PT student. Pt just wanting to get back to bed at this time. Patient/Caregiver Goals To go home. OT Pain Assessment Pain When Pain Assessed At Rest Pain Present Pain Present Pain Reported Location Right Hip Intensity 7 M4 OT- IP ADL's Start: 01/10/22 14:57 Freq: Status: Active Protocol: Document 01/10/22 14:57 [facility] (Rec: 01/10/22 15:14 [facility] [id number]) OT [id number] Comments OT Self-Feeding Comments NOt at meal time. OT ADL-Grooming Comments OT Grooming Comments pt did earlier OT ADL-Oral Care Comments Oral Care Comments not performed OT ADL-Dressing General Eval Lower Body Dressing Ability Maximum Assistance Comments OT Dressing Comments Able to show pt use of adaptive equipment for LB dressing needs. Pt states knows of someone to loan equipment from, equipment list for home use given to pt. OT ADL-Toileting Comments OT Toileting Comments Suggested safer to have BSC which can be placed on top on the toilet or next to the bed . Disposable briefs also suggested so not having to hurry to the bathroom. Beckham/whistle/cell phone suggested to have to be able to call her mom as needed . Pt's mom states she will be there and is close by enough to help as needed. OT ADL-Bathing Comments OT Bathing Comments Pt states will just sponge off . Suggested if having to get into her tub, tub bench would be beneficial for her to have and use. M5 OT- IP IADL's Start: 01/10/22 14:57 Freq: Status: Active Protocol: Document 01/10/22 14:57 [facility] (Rec: 01/10/22 15:14 [facility] [id number]) OT-Instrumental Activities of Daily Living Home Safety Awareness Awareness of Need for Assistance at Home Good Awareness Ability to Problem Solve Emergency Able to Problem Solve Situations Home Safety Comments Pt's mother to be with her / 7 to be able to assist for for all ADl and mobility needs as needed. M6 OT- IP Functional Cognition Start: 01/10/22 14:57 Freq: Status: Active Protocol: Document 01/10/22 14:57 [facility] (Rec: 01/10/22 15:14 [facility] [id number]) Cognitive Factors Limiting Selfcare Function Cognitive Ability Level of Alertness Alert Patient Orientation Name,Place,Situation Attention Span Ability Capable of Focused Attention, Capable of Sustained Attention Ability to Follow Commands Able to Follow One Step Commands Safety Awareness Decreased Ability to Apply Precautions Cognitive Comments Cognitive Assessment Comments Pt needing reminders to apply her hip precautions during mobility needs of getting back to bed. OT- Vision and Hearing OT- Hearing Assessment OT- Hearing Assessment WFL M7 OT- IP Mobility and Balance Start: 01/10/22 14:57 Freq: Status: Active Protocol: Document 01/10/22 14:57 [facility] (Rec: 01/10/22 15:14 [facility] [id number]) OT- Bed Mobility Assessment Sit to Supine Sit to Supine Assist Standby Assistance OT-Transfer Assessment Sit to and From Stand Sit to and from Stand Minimal Assistance Transfers Transfer Ability Contact Guard Assistance, Minimal Assistance Technique Transfer Destination Bed,Wheelchair Devices Transfer Assistive Devices Gait Belt Comments Mobility Comments JOELLEN to the to FWW and CGA to transfer back to bed. Pt will need more assist from lower surfaces like the toilet, however suggested pt get a BSC for home use. Pt's mom insistent that she is strong and can lift her daughter up as needed. OT- Balance Assessment Sitting Balance and Reactions Static Sitting Balance Ability Good Dynamic Sitting Balance Ability Good Standing Balance and Reactions Static Standing Balance Ability Fair Dynamic Standing Balance Ability Fair M8 OT- IP Objective Assessments Start: 01/10/22 14:57 Freq: Status: Active Protocol: Document 01/10/22 14:57 [facility] (Rec: 01/10/22 15:14 [facility] [id number]) OT-Muscle Tone Assessment Muscle Tone WNL Yes M9 OT- IP Assessment and Plan Start: 01/10/22 14:57 Freq: Status: Active Protocol: Document 01/10/22 14:57 [facility] (Rec: 01/10/22 15:14 [facility] [id number]) OT Summary Assessment and Plan Potential Rehabilitation Potential Good Analytic Complexity at Evaluation Low Summary OT Impairments Pain,Balance,Functional Cognition,Functional Mobility, Dressing,Toileting,Bathing, Toilet Transfers,Shower Transfers,Activity Tolerance Progress Towards Goals Progressing Toward Goals Assessment Summary Pt low complexity and main barrier are pain, steps, and prior medical conditions. However pt's has a supportive mom who has participated in caregiver training and able to safely assist her daughter with mobility needs and good understanding to be able to assist for all ADl needs. Pt to go home when medically stable with her mom and home health. Goals Grooming Goal Independent Dressing Goal Independent Toileting Goal Independent Bathing Goal Standby Assistance Toilet Transfer Goal Independent Days to Meet Goals 5 Frequency of Treatment Frequency Of Treatment Once a Day Treatment Plan OT Treatment Plan ADL Training,Functional Cognition Training,Functional Mobility,Patient/Family Education,Discharge Planning Discharge Recommendations OT Discharge Recommendations Home with 28/12 Assist Available,Home Health Home Equipment Needs BSC, LB dressing equipment, tub bench Transportation Needs at Discharge Private Vehicle
[2022-01-10] MEDS: clonazePAM 0.5 MG TABLET 1 MG PO ×3 (15:03→20:23)
--- NOTE | 2022-01-10 15:55 | PM.PN.1 ---
Subjective Subjective Date Patient Seen: 01/10/22 Interval history: Reports 6-12/14 pain today after working with therapy. Would like some increase in pain medications. No chest pain, shortness of breath, nausea, vomiting. Exam Vital Signs (past 8 hours): - 01/10/22 08:16 Temperature 98.0 F Pulse Rate 84 Respiratory Rate 16 Blood Pressure 98/64 Pulse Oximetry 98 Oxygen Flow Rate 0 Oxygen Delivery Method Room Air Oxygen Flow Rate 0 Narrative Exam Narrative: GEN: no acute distress, very thin female with temporal wasting HEENT: moist mucous membranes, PERRL NECK: trachea midline, no JVD CV: regular rate and rhythm, no murmurs PULM: clear bilaterally ABD: soft, nontender, nondistended, no organomegaly EXT: pain to palpation of right hip NEURO: awake, alert, oriented, no focal deficits Objective Labs Result Diagrams: 01/10/22 05:10 01/10/22 05:10 Labs: Laboratory Results - last 24 hr 01/10/22 01/10/22 05:10 05:10 WBC 9.8 RBC 2.87 L Hgb 8.6 L Hct 25.4 L MCV 88.7 MCH 30.1 MCHC 33.9 RDW 12.8 Plt Count 227 Neut % (Auto) 89.2 H Lymph % (Auto) 6.1 L [place] % (Auto) 4.4 Eos % (Auto) 0.0 L Baso % (Auto) 0.3 Neut # (Auto) 8700 H Lymph # (Auto) 600 L [place] # (Auto) 400 Eos # (Auto) 0 Baso # (Auto) 0 Sodium 138 Potassium 4.2 Chloride 107 Carbon Dioxide 26 BUN 10 Creatinine 0.88 Estimated GFR > 60 BUN/Creatinine Ratio 11.4 Glucose 137 H Calcium 9.0 PFSH Medical History Allergies Anemia Ankle pain Anxiety disorder Cachexia Cervical somatic dysfunction Cervical spine pain Chronic back pain Chronic pain due to injury Colitis Cranial somatic dysfunction CRPS (complex regional pain syndrome type II) Fibromyalgia Fractures GERD (gastroesophageal reflux disease) GI bleeding Irritable bowel syndrome Lumbar region somatic dysfunction Migraines Osteoarthritis Osteoporosis Pelvic somatic dysfunction Peripheral neuropathy PTSD (post-traumatic stress disorder) Sacral pain Sacral region somatic dysfunction Scoliosis Screening for thyroid disorder Segmental and somatic dysfunction of abdomen and other regions Shoulder pain Somatic dysfunction of lower extremity Thoracic region somatic dysfunction Ulcerative colitis Weight loss, abnormal Surgical History Anesthesia History of bladder surgery Previous back surgery (~1997) Family History Father History of heart disease Stroke Grandfather Cancer Stroke Grandmother Diabetes mellitus Hyperlipidemia Hypertension Stroke Grandfather Cancer Mental health problem Grandmother Cancer Social History household members: family Smoking Status: Never smoker alcohol intake: never Assessment & Plan Assessment & Plan narrative: # acute right hip fracture, pathologic, present on admission -sustained after stepping into a hole on uneven ground. Did not fall. Likely related to her osteoporosis which must be severe given lack of significant trauma. -hip x-ray showed right displaced subcapital femoral fracture -s/p surgical intervention with orthopedics on 01/09 -continue PT # acute on chronic normocytic anemia -hemoglobin 9.4 on admission, previously 11.3, slightly lower today at 8.6 after surgery. -iron studies and B12/folate normal # severe protein calorie malnutrition -BMI 16.9 -dietitian consult # complex regional pain syndrome, chronic -continue home methadone 10 mg q.i.d. -continue laxatives while on narcotics # anxiety, chronic -continue home Klonopin 1 mg as needed Code status is full code. COVID negative. DVT prophylaxis with SCDs. Proxy is mother Viviana. I have reviewed home meds and used all available resources to reconcile the home meds. Dispo: likely discharge home in 1-2 days. Time Spent With Patient Critical Care time: I spent a total of [] minutes of critical care time on this patient's care today; this time is exclusive of procedural time.
--- NOTE | 2022-01-10 16:36 | CM.DPNOTE ---
DCP Note Patient now POD#1 from repair of fx hip by DR Knott, fx sustained after stepping into a hole on uneven ground. patient w/hx of severe Osteoporosis According to REBEL Hobbs, thus far patient has cleared PT for return home w/mom; suggests info be provided re: hospital bed for home use Patient gives this [employer] permission to discuss planning w/mom Viviana Moni call to patient's mom, who states is planning to attend cg training w/PT this afternoon. Introduced self and role Mom prepared to bring patient home to assist in her recovery, DC likely Wednesday, states she is not sure she will need a hospital bed for patient. Discussed home health services. Mom explains her spouse recently and had in home services. MCR choice list reviewed over the phone and mom requests HH referral to [facility] Faxed referral to [facility], included completed and signed F2F, face sheet, HH order and H+P from Ortho and Hospitalist Plan: DC expected Wednesday, POD#2, home w/family and HH. CM team- pls confirm receipt of HH referral w/[facility] upon patient's DC VENKATA Sabillon
[2022-01-10] MEDS: HYDROMORPHONE 4 MG TABLET PO ×2 (18:49→23:04)
--- NOTE | 2022-01-10 19:39 | PC.NURSE ---
Ortho/Pain: Pain has been controlled however pt notices the pain has been more this evening. Discussed med regime back in OR, it helps but wears off in 5 days. She will notice more pain as the medication gradually wears off. Switched from Oxycodone to Dilaudid this evening. Still receiving other meds routine. Pt does better when medication is given on a routine basis. This am she had been given differing info on posterior hip precautions. Pt informed what they really were. Was not in agreement initially. Pt was told she could dislocate her hip. It was then brought to the attention of PT. After PT therapy pt did agree to follow posterior hip precautions and has been following them since. PPP, feet =/warm, brisk cap refill. Pt getting home readied to be able to go home with mother. Mother here for palliative care nurse practitioner training today. Plan to d/c to home if pain controlled and safe.
[2022-01-10 20:15] VITALS: BP 115/72; PULSE 103; RESP 16; TEMP 37.1; O2SAT 99
[2022-01-10] MEDS: FLUTICASONE 120 SPRAY/16 GM SPRAY.SUSP NASAL (20:24)
[2022-01-10 23:48] VITALS: BP 113/78; PULSE 83; RESP 14; TEMP 36.6; O2SAT 99
[2022-01-11] MEDS: HYDROMORPHONE 4 MG TABLET PO (03:02)
[2022-01-11 05:17] LABS: Add Manual Diff / Slide Review NO; Basophils Absolute Auto 0 /uL (0-100); Basophils Percent Auto 0.4 % (0-2); Eosinophils Absolute Auto 300 /uL (0-450); Eosinophils Percent Auto 4.4 % (2-4); Hemoglobin 8.1 g/dL (12.0-16.0); Lymphocytes Absolute Auto 1700 /uL (1100-4500); Lymphocytes Percent Auto 22.2 % (25-40); Mean Corpuscular HGB Conc 33.9 % (30-36); Mean Corpuscular Hemoglobin 29.9 PG (26-34); Mean Corpuscular Volume 88.4 fL (80-100); Monocytes Absolute Auto 400 /uL (0-900); Monocytes Percent Auto 5.8 % (3-14); Neutrophils Absolute Auto 5100 /uL (1500-7000); Neutrophils Percent Auto 67.2 % (50-75); Platelet Count 232 X10^3/uL (150-400); Red Blood Cell Count 2.72 X10^6/uL (4.0-5.2); Red Cell Distribution Width 12.9 % (11.6-14.8); White Blood Cell Count 7.5 X10^3/uL (4.5-11.0)
[2022-01-11 05:28] LABS: Blood Urea Nitrogen 13 mg/dL (7-17); Calcium 8.9 mg/dL (8.4-10.2); Carbon Dioxide 29 mmol/L (22-32); Chloride 109 mmol/L (98-107); Estimated Glomerular Filt Rate > 60 mL/min (>60); Glucose 85 mg/dL (70-100); HEMOLYSIS < 15 (0-50); Potassium 4.1 mmol/L (3.4-5.1); Sodium 139 mmol/L (137-145)
[2022-01-11 05:46] VITALS: BP 94/63; PULSE 77; RESP 14; TEMP 36.1; O2SAT 98
[2022-01-11] MEDS: IBUPROFEN 400 MG TABLET PO ×2 (05:57→11:19)
[2022-01-11] MEDS: OXYCODONE IR 10 MG TABLET PO (05:58)
[2022-01-11] MEDS: ACETAMINOPHEN 325 MG TABLET 650 MG PO ×2 (05:58→11:20)
[2022-01-11 07:36] VITALS: BP 99/67; PULSE 76; RESP 14; TEMP 36.4; O2SAT 98
[2022-01-11] MEDS: LIDOCAINE PATCH 1 EACH ADH..PATCH TOP (08:23)
[2022-01-11] MEDS: CYCLOBENZAPRINE 10 MG TABLET PO (08:23)
[2022-01-11] MEDS: ASPIRIN EC 81 MG TABLET PO (08:23)
[2022-01-11] MEDS: DOCUSATE 100 MG CAPSULE PO (08:23)
[2022-01-11] MEDS: METHADONE 10 MG TABLET PO ×2 (08:23→12:12)
--- NOTE | 2022-01-11 09:43 | PT.IPTN ---
Current Diagnoses Ulcerative colitis, unspecified, without complications (01/08/22) Unspecified osteoarthritis, unspecified site (01/08/22) Fibromyalgia (01/08/22) Age-related osteoporosis without current pathological fracture (01/08/22) Segmental and somatic dysfunction of lumbar region (01/08/22) Segmental and somatic dysfunction of lower extremity (01/08/22) Cachexia (01/08/22) Unspecified intracapsular fracture of right femur, initial encounter for closed fracture (01/08/22) Surgery Performed Operation Date: 01/09/22 14:15 Actual Procedures p unipolar hip(Right) - Dayana Knott MD Physical Therapy Treatment Note M2 PT-IP Current Condition Start: 01/10/22 12:12 Freq: NEEDED Status: Active Protocol: Document 01/10/22 10:20 [facility] (Rec: 01/10/22 12:30 AB [id number]) Physical Therapy Current Condition Current Condition Evaluation Date 01/10/22 Treatment Diagnosis R hip fx s/p hemiarthroplasty; difficulty in walking Onset Date 01/08/22 M3 PT-IP Subjective Start: 01/10/22 12:12 Freq: NEEDED Status: Active Protocol: Document 01/11/22 09:43 AW (Rec: 01/11/22 09:45 AW [id number]) Subjective Physical Therapy Visit Type Type Treatment Note Visit Start Time 09:19 Visit Stop Time 09:43 Total Visit Minutes 24 Number of [facility] Visits 0 Physical Therapy Visit Comments Patient Comments pt is agreeable to do PT Therapy Pain Assessment Pain When Pain Assessed At Rest Pain Present Pain Present Pain Reported Location Right Hip Scale Used not quantified Pain Behaviors Facial Grimacing M4 PT-IP Mobility and Gait Start: 01/10/22 12:12 Freq: NEEDED Status: Active Protocol: Document 01/11/22 09:43 AW (Rec: 01/11/22 09:45 AW [id number]) PT-Bed Mobility Assessment Supine to Sit Supine to Sit Standby Assistance PT-Transfer Assessment Sit to and From Stand Sit to and from Stand Standby Assistance,Use of Upper Extremities Equipment Transfer Assistive Device Gait Belt Orthotic/Prosthetic Devices or Brace: No Transfers Transfer Destination Bed,Chair,Toilet Transfer Technique amb with FWW Transfer Ability Level of Assist Standby Assistance,Contact Guard Assistance,Use of Upper Extremities Comments Mobility Comments Pt was able to recall all precautions today. She completed all mobilities with good attention to precautions, verbalizing her movement strategies as she mobilized. Min cues only today to implement precautions during sit to stand but pt did self- correct without need for cues as session progressed. Gait Assessment Gait Gait Assistance Required: Standby Assistance Distance (Feet) 120 Able to Maintain Weight Bearing Status Yes During Gait Assistive Devices Assistive Device Gait Belt,Front Wheeled Walker Orthotic/Prosthetic Devices or Brace: No Gait Deviations General Gait Pattern Antalgic,Decreased Stride Length,Decreased Feet Clearance Factors Limiting Gait Function Factors Limiting Gait Function Decreased Activity Tolerance, Decreased Strength,Limited Range of Motion,Pain,Poor Safety Awareness Comments Gait Comments Cued pt for centered position in walker frame. Cued for step through pattern to improve RLE weightbearing and pt was able to maintain ~20 feet before reverting to step-to. PT-Balance Assessment Sitting Balance and Reactions Static Sitting Balance Ability Good Dynamic Sitting Balance Ability Good Standing Balance and Reactions Static Standing Balance Ability Good Dynamic Standing Balance Ability Fair Device Used FWW M5 PT-IP Objective Assessments Start: 01/10/22 12:12 Freq: NEEDED Status: Active Protocol: Document 01/10/22 10:20 [facility] (Rec: 01/10/22 12:30 AB [id number]) Orientation Orientation/Cognition Level of Alertness Alert Orientation Name,Place,Situation Language Function Ability No Deficits Noted Safety Awareness Decreased Safety Awareness Memory Description Short Term Impaired Gross Range of Motion Lower Extremity ROM Assessment Within Functional Limits Strength Lower Extremity Strength Assessment Right Impaired Hip 4-/5 Knee 4-/5 Sensation Assessment Sensation Gross Sensation WNL Muscle Tone Muscle Tone WNL Yes M6 PT-IP Treatment Start: 01/10/22 12:12 Freq: NEEDED Status: Active Protocol: Document 01/11/22 09:43 AW (Rec: 01/11/22 09:45 AW [id number]) Physical Therapy Treatment Education Education Provided Precautions,Safety M7 PT-IP Assessment and Plan Start: 01/10/22 12:12 Freq: NEEDED Status: Active Protocol: Document 01/11/22 09:43 AW (Rec: 01/11/22 09:45 AW [id number]) PT Summary Assessment and Plan Potential Rehabilitation Potential Good Summary Impairments Pain,ROM,Strength,Balance, Coordination,Sensation, Cognition,Bed Mobility, Transfers,Gait,Activity Tolerance Progress Towards Goals Progressing Toward Goals,Slow Progress - Other Assessment Summary Pt has improved awareness of her precautions and requires fewer cues. She will be safe to discharge home once mediccally stable. She will have her mother to assist and will need PT. Goals Bed Mobility Goal Independent Transfer Goal Independent,Front Wheeled Walker Gait Goal Independent,Front Wheel Walker Gait Distance 200 Other Goals up/down 3 steps L rail Days to Meet Goals 5 Frequency of Treatment Frequency Of Treatment Twice a Day Treatment Plan Physical Therapy Treatment Plan Bed Mobility Training,Transfer Training,Gait Training, Therapeutic Exercise,Balance Retraining,Post Op Education, Discharge Planning,Hot or Cold Pack,Neuromuscular Re-ed, Coordination Retraining,Manual Therapy Precautions Posterior Hip Precautions No Hip Flexion > 90 degrees,No Hip Internal Rotation,No Hip Adduction Weight Bearing Status Weight Bearing Status Weight Bear as Tolerated Allowed Weight Bearing Amount (enter % RLE WBAT or #) (%) Recommendations To Nursing Amount of Assist Needed Standby Assistance Discharge Recommendations PT Discharge Recommendations Home with 28/12 Assist Available,Home Health Transportation Needs at Discharge Private Vehicle
--- NOTE | 2022-01-11 10:15 | PM.PNPO.1 ---
Subjective Subjective Date Patient Seen: 01/11/22 Time Patient Seen: 10:15 Interval history: She notes she is doing reasonably well. She got up with therapy yesterday. She has worked a little bit on steps. Her mom is having the steps fixed at her house to make it a little safer to get an. Exam Vital Signs (past 8 hours): - 01/11/22 05:46 01/11/22 07:36 01/11/22 07:00 Temperature 97.0 F L 97.6 F Pulse Rate 77 76 Respiratory Rate 14 14 Blood Pressure 94/63 99/67 Pulse Oximetry 98 98 Oxygen Delivery Method Room Air Oxygen Flow Rate 0 0 Oxygen Delivery Method Room Air Oxygen Flow Rate 0 Narrative Exam Narrative: She is alert she is oriented she is appropriate lungs are clear cor is regular rate and rhythm the right lower extremity dressings dry she is able to fire toe flexors and extensors quads hamstrings or calf soft bilaterally, her thigh is soft there is minimal pain with range of motion Objective Labs Result Diagrams: 01/11/22 05:03 01/11/22 05:03 Labs: Laboratory Results - last 24 hr 01/11/22 01/11/22 05:03 05:03 WBC 7.5 RBC 2.72 L Hgb 8.1 L Hct 24.0 L MCV 88.4 MCH 29.9 MCHC 33.9 RDW 12.9 Plt Count 232 Neut % (Auto) 67.2 D Lymph % (Auto) 22.2 L [place] % (Auto) 5.8 Eos % (Auto) 4.4 H Baso % (Auto) 0.4 Neut # (Auto) 5100 Lymph # (Auto) 1700 [place] # (Auto) 400 Eos # (Auto) 300 Baso # (Auto) 0 Sodium 139 Potassium 4.1 Chloride 109 H Carbon Dioxide 29 BUN 13 Creatinine 0.93 Estimated GFR > 60 BUN/Creatinine Ratio 14.0 Glucose 85 Calcium 8.9 PFSH Medical History Allergies Anemia Ankle pain Anxiety disorder Cachexia Cervical somatic dysfunction Cervical spine pain Chronic back pain Chronic pain due to injury Colitis Cranial somatic dysfunction CRPS (complex regional pain syndrome type II) Fibromyalgia Fractures GERD (gastroesophageal reflux disease) GI bleeding Irritable bowel syndrome Lumbar region somatic dysfunction Migraines Osteoarthritis Osteoporosis Pelvic somatic dysfunction Peripheral neuropathy PTSD (post-traumatic stress disorder) Sacral pain Sacral region somatic dysfunction Scoliosis Screening for thyroid disorder Segmental and somatic dysfunction of abdomen and other regions Shoulder pain Somatic dysfunction of lower extremity Thoracic region somatic dysfunction Ulcerative colitis Weight loss, abnormal Surgical History Anesthesia History of bladder surgery Previous back surgery (~1997) Family History Father History of heart disease Stroke Grandfather Cancer Stroke Grandmother Diabetes mellitus Hyperlipidemia Hypertension Stroke Grandfather Cancer Mental health problem Grandmother Cancer Social History household members: family Smoking Status: Never smoker alcohol intake: never Assessment & Plan Post-op Postoperative Procedures: Procedures Operation Date: 01/09/22 14:15 Actual Procedure Side Surgeon p unipolar hip Right Dayana Knott MD Postoperative day: 2 Postoperative status: doing well Postoperative status narrative: Doing well postoperatively. She needs to work a little more with therapy on steps. Postoperative plan: routine post-op care Postoperative plan narrative: As long as she is adequately safe with therapy she should be able to be discharged to home today. She will follow up at [facility] with [facility] in 10-14 days.
[2022-01-11] MEDS: HYDROMORPHONE 2 MG TABLET PO (11:20)
--- NOTE | 2022-01-11 11:44 | CM.DPC ---
Addendum entered by VENKATA Maldonado 01/11/22 12:04: ADD: Per RN, pt's mother has concerns about not having her home prepared for patient's arrival today. ERIKA called pt's mother Viviana hussein and she states they have someone building stairs to their deck to get in the home today and she isn't getting a single regular bed until tomororw and the toilet seat riser not arriving until tonight. SW discussed pt's ability to do bed mobility and ambulate independently with walker and SW confirmed with PT that pt and mom completed CG training and stairs. SW discussed pt being medically stable to discharge today and the risk of insurance no longer covering her stay and mother acknowledged understanding. PT graciously willing to discuss mother's concerns with the home DME and mother confirms she will transport pt home later today. ERIKA updated RN. BF Original Note: DCP Discharge Home with HH Per Ortho MD, pt stable for d/c home when medically stable. Per MD, pt medically stable to discharge home today. Per PT, pt ambulated hallways with her FWW and safe for d/c home with mother assist and HH. ERIKA met bedside with pt and discussed above and pt confirms she is agreeable with d/c to home today and pt states she just called her mom who will provide transport today and SW provided the [facility] brochure for discharge and pt is agreeable and appreciative. 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 ERIKA called [facility] and updated on d/c home today and faxed d/c summary (F2F and orders previously faxed yesterday) ERIKA updated RN. Plan: Patient to d/c home today via mother POV and new [facility] referral made and they will open after d/c. VENKATA Maldonado
[2022-01-11 11:52] VITALS: BP 137/72; PULSE 93; RESP 18; TEMP 36.6; O2SAT 100
--- NOTE | 2022-01-11 12:32 | PC.NURSE ---
Pt is AxOx4, needs 1 person assistance and cooperative. VSS, pt c/o pain on back, R hip and other body parts which is nothing new for her and recieved PRN Dilaudid 2mg PO as well as her routine Tylenon and Ibuprofen with good effect. Pt is eating well. The discharge instructions given to pt and pt is ready to d/c. Pt will d/c this afternoon. Pt was given instruction on S/E of narcotic and importance of preventing constipation and fall incident at home. Pt verbalized understanding. No other changes.
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
== END 2022-01-11 14:35 | disposition home health service (06) | DRG 521 ==
LOC: ED 17:04 → AC 17:27
PROVIDERS: Emergency Medicine; Orthopaedic Surgery; Admitting Provider Student in an Organized Health Care Education/Training Program; Emergency Provider Nurse Practitioner Critical Care Medicine; PCP Family Medicine; Referring Provider Nurse Practitioner Critical Care Medicine; Visit Provider Student in an Organized Health Care Education/Training Program
PROC: 0SRR0JZ Replacement of Right Hip Joint, Femoral Surface with Synthetic Substitute, Open Approach (ICD-10-PCS; CPT 27125; principal; 2022-01-09 14:15)
DX: M80.051A Age-related osteoporosis with current pathological fracture, right femur, initial encounter for fracture (principal); E43 Unspecified severe protein-calorie malnutrition; Z68.1 Body mass index [BMI] 19.9 or less, adult; F11.20 Opioid dependence, uncomplicated; D62 Acute posthemorrhagic anemia; G90.50 Complex regional pain syndrome I, unspecified; K51.90 Ulcerative colitis, unspecified, without complications; K21.9 Gastro-esophageal reflux disease without esophagitis; F43.10 Post-traumatic stress disorder, unspecified; F41.9 Anxiety disorder, unspecified; G43.909 Migraine, unspecified, not intractable, without status migrainosus; Z20.822 Contact with and (suspected) exposure to COVID-19
CPT/HCPCS: 36415; 73502; 80048; 80053; 82607; 82746; 83540; 83550; 83735; 84443; 85025; 85610; 87635; 96374; 97116; 97162; 97165; 97530; 99283; 99284; C9803; C9290; J0330; J0690; J1100; J1170; J2250; J2405; J2704; J3010

== ENCOUNTER → 2022-02-18 12:22 | Outpatient (CLI) | payer OTHER, MEDICAID, SELFPAY | PROVIDERS: PCP Family Medicine; Referring Provider Family Medicine; Visit Provider Family Medicine | DX: M81.0 Age-related osteoporosis without current pathological fracture (principal); S72.011A Unspecified intracapsular fracture of right femur, initial encounter for closed fracture | CPT/HCPCS: 77080; 77081 ==

== ENCOUNTER 2022-10-26 15:58 | Inpatient (IN) | payer MEDICAID, OTHER, SELFPAY ==
[2022-10-26] VITALS (24 sets, daily range): BP systolic 90–115; BP diastolic 59–82; PULSE 74–97; RESP 12–21; TEMP 36.1–37.2; O2SAT 96–100; BMI 17.7
--- NOTE | 2022-10-26 16:13 | DI.RAD.S_ITS ---
PROCEDURE: XR HIP W PEL IF DONE LT 2V INDICATIONS: Left Hip Injury TECHNIQUE: AP pelvis with lateral view(s) of the left hip(s). COMPARISON: [facility], [facility], XR HIP W PEL IF DONE RT 2V, 01/09/2022, 19:13. FINDINGS: Bones: Bilateral hip arthroplasties. No evidence of left hip arthroplasty hardware failure or loosening. No fractures or dislocations. Pelvic ring appears intact. No suspicious bony lesions. Soft tissues: The visualized bowel gas pattern is normal. No suspicious soft tissue calcifications. IMPRESSION: Expected appearance of left hip arthroplasty. Dictated by: Farrukh Estrada M.D. on 10/26/2022 at 16:51 Approved by: Farrukh Estrada M.D. on 10/26/2022 at 16:52
--- NOTE | 2022-10-26 17:12 | DI.RAD.S_ITS ---
PROCEDURE: XR CHEST 1V INDICATIONS: suspected sepsis TECHNIQUE: One view of the chest was acquired. COMPARISON: [facility], , CHEST 2 VIEW, 10/18/2015, 12:18. FINDINGS: Surgical changes and devices: None. Lungs and pleura: No dense consolidation or pleural effusion. Mediastinum: Mediastinal contours appear normal. Heart size is normal. Bones and chest wall: No suspicious bony lesions. Overlying soft tissues appear unremarkable. IMPRESSION: No acute radiographic abnormality. Dictated by: Oscar Falcon M.D. on 10/26/2022 at 17:45 Approved by: Oscar Falcon M.D. on 10/26/2022 at 17:46
--- NOTE | 2022-10-26 18:21 | ED.LOWEXIN ---
HPI - Extremity Injury (Lower) General Chief Complaint: Extremity Injury, Lower Stated Complaint: lt leg injury Time Seen by Provider: 10/26/22 17:12 Source: patient Mode of arrival: Wheelchair History of Present Illness HPI Narrative: Patient is a 52-year-old female has a history of chronic regional pain, osteoporosis presents today with increasing left leg pain. She would a complicated course in [facility] after falling breaking her hip. She developed a seroma which became infected requiring vancomycin and daptomycin and 50 days of IV antibiotics. She now is on Cipro twice daily as maintenance. He has been able to walk on it however over last couple days she is having increasing pain. They apparently were in [facility] and she was told that she was anemic and needed a blood transfusion however they left and drove to [place] in an RV. She is feeling generally weak. She denies any fever but also reports that she never had fever throughout this whole process. She is mildly hypotensive with a blood pressure 0s. She denies any chest pain or shortness of breath exertion. He is able to move her leg and hip. Pain does not seem to be excruciating. She reports that the seroma was so big it weighed about 24 lb. Records indicate abnormal MRSE sensitivity clindamycin, daptomycin, gentamicin Levaquin, lives denies it, minocycline, rifampin, vancomycin. Related Data Home Medications Medication Instructions Recorded Confirmed aspirin 81 mg tablet,delayed 81 mg PO BID 10/26/22 10/26/22 release calcium carbonate 500 mg calcium 1,500 mg PO TID 10/26/22 10/26/22 (1,250 mg) chewable tablet cholecalciferol (vitamin D3) 125 125 mcg PO DAILY 10/26/22 10/26/22 mcg (5,000 unit) capsule clonazepam 1 mg tablet 1 mg PO TID 10/26/22 10/26/22 ferrous gluconate 324 mg (37.5 mg 324 mg PO BID 10/26/22 10/26/22 iron) tablet oxycodone 5 mg tablet 5 mg PO Q6H PRN Pain (Scale Score 10/26/22 10/26/22 7-10) polyethylene glycol 3350 17 gram 17 g PO DAILY 10/26/22 10/26/22 oral powder packet (Miralax) Previous Rx's Medication Instructions Recorded Massage therapy #6 ea 11/07/20 Disabled Parking Permit #1 ea 02/11/21 Disabled Parking #1 ea 06/05/22 lidocaine 5 % topical patch 1 patch topical DAILY #30 ea 08/10/22 cyclobenzaprine 10 mg tablet See Rx Instructions .Route 08/11/22 .COMPLEX #90 tabs methadone 10 mg tablet See Rx Instructions .Route 09/09/22 .COMPLEX #120 tabs Allergies Allergy/AdvReac Type Severity Reaction Status Date / Time Sulfa (Sulfonamide Allergy Unknown SORES IN Verified 04/29/22 15:05 Antibiotics) THE MOUTH [SULFA (SULFONAMIDE ANTIBIOTICS)] cortisone [CORTISONE] AdvReac Unknown UNABLE TO Verified 04/29/22 15:05 SLEEP, GETS CRAZY doxycycline AdvReac Gastrointestinal Verified 10/26/22 16:03 Upset Review of Systems Review of Systems ROS Unobtainable: All systems reviewed & are unremarkable except as noted in HPI and below Patient History Medical History Allergies Anemia Ankle pain Anxiety disorder Cachexia Cervical somatic dysfunction Cervical spine pain Chronic back pain Chronic pain due to injury Chronic pain of right knee Colitis Cranial somatic dysfunction CRPS (complex regional pain syndrome type II) Fibromyalgia Fractures GERD (gastroesophageal reflux disease) GI bleeding Irritable bowel syndrome Lumbar region somatic dysfunction Migraines Osteoarthritis Osteoporosis Pelvic somatic dysfunction Peripheral neuropathy PTSD (post-traumatic stress disorder) Sacral pain Sacral region somatic dysfunction Scoliosis Screening for thyroid disorder Segmental and somatic dysfunction of abdomen and other regions Shoulder pain Somatic dysfunction of lower extremity Thoracic region somatic dysfunction Ulcerative colitis Weight loss, abnormal Surgical History Anesthesia History of bladder surgery Previous back surgery (~1997) Family History Father History of heart disease Stroke Grandfather Cancer Stroke Grandmother Diabetes mellitus Hyperlipidemia Hypertension Stroke Grandfather Cancer Mental health problem Grandmother Cancer Social History household members: family Smoking Status: Never smoker alcohol intake: never Smoking Status: Never smoker Substance Use Type: does not use Exam Initial Vital Signs Initial Vital Signs: Vital Signs Temperature 98.9 F 10/26/22 16:04 Pulse Rate 97 H 10/26/22 16:04 Respiratory Rate 18 10/26/22 16:04 Blood Pressure 90/62 10/26/22 16:04 Pulse Oximetry 97 10/26/22 16:04 Oxygen Delivery Method Room Air 10/26/22 16:04 GENERAL: Thin alert slightly pale 52-year-old female HEENT: Head atraumatic,EOMI, pupils reactive, face symmetric, moist mucous membranes CARDIOVASCULAR: Regular rate and rhythm without murmurs, rubs or gallops. RESPIRATORY: Breath sounds equal bilaterally, no wheezes rales or rhonchi. ABDOMEN: Soft, nontender. Normoactive bowel sounds all 4 quadrants. No guarding or rebound. EXTREMITIES: Normal range of motion, no clubbing or edema. Neurovascularly intact Incision site at left hip noted small area of induration no significant erythema mild tenderness to touch distal pedal pulses felt, moving toes and foot without difficulty NEUROLOGICAL: Alert and oriented x4. SKIN: Warm, dry, no laceration, no petechiae, no rashes or lesions. Incision described as above Course Orders Ordered: Acetaminophen (Acetaminophen 325 Mg Tablet) 650 mg PO Q6H PRN PRN Reason: Fever/Mild Pain (1-3) Clonazepam (Clonazepam 0.5 Mg Tablet) 1 mg PO BID PRN PRN Reason: Anxiety Lidocaine (Lidocaine Patch 1 Each Adh..Patch) 1 each TOP DAILY LISA Naloxone HCl (Naloxone 0.4 Mg/Ml Vial) 0.2 mg IV Q2MIN PRN PRN Reason: Opiate Reversal Ondansetron HCl (Ondansetron 4 Mg/2 Ml Inj) 4 mg IV Q8HR PRN PRN Reason: Nausea And Vomiting Oxycodone HCl (Oxycodone Ir 5 Mg Tablet) 5 mg PO Q3H PRN PRN Reason: Pain, Moderate (4-6) Last Admin: 10/26/22 23:57 Dose: 5 mg Documented By: ROMANA Discontinued Medications Hydromorphone HCl (Hydromorphone 1 Mg Inj) 1 mg IV NOW ONE Stop: 10/26/22 19:20 Last Admin: 10/26/22 19:50 Dose: 1 mg Documented By: NUZHAT Ondansetron HCl (Ondansetron 4 Mg Odt) 4 mg SL NOW PRN PRN Reason: Nausea And Vomiting Ondansetron HCl (Ondansetron 4 Mg/2 Ml Inj) 4 mg IV NOW PRN PRN Reason: Nausea And Vomiting Last Admin: 10/26/22 19:50 Dose: 4 mg Documented By: NUZHAT Vital Signs Vital signs: Vital Signs - 8 hr 10/26/22 21:13 10/26/22 20:30 10/26/22 20:30 Temperature 97.8 F Pulse Rate 82 80 Respiratory Rate 12 15 Blood Pressure 96/62 90/59 L Pulse Oximetry 98 10/26/22 21:00 10/26/22 21:14 10/26/22 21:14 Temperature Pulse Rate 81 83 Respiratory Rate 15 18 Blood Pressure 96/62 Pulse Oximetry 98 10/26/22 21:30 Temperature 97.6 F Pulse Rate 83 Respiratory Rate 14 Blood Pressure 96/76 Pulse Oximetry MDM - Extremity Injury (Lower) Lab Data 10/26/22 18:16 10/26/22 18:16 Labs: Lab Results 10/26/22 10/26/22 10/26/22 Range/Units 18:16 18:16 18:16 WBC 8.9 (4.5-11.0) X10^3/uL RBC 2.41 L (4.0-5.2) X10^6/uL Hgb 6.5 L* (12.0-16.0) g/dL Hct 19.4 L* (36-46) % MCV 80.3 (80-100) fL MCH 26.9 (26-34) PG MCHC 33.5 (30-36) % RDW 14.9 H (11.6-14.8) % Plt Count 411 H (150-400) X10^3/uL Neut % (Auto) 70.2 (50-75) % Lymph % (Auto) 16.5 L (25-40) % [place] % (Auto) 6.8 (3-14) % Eos % (Auto) 5.7 H (2-4) % Baso % (Auto) 0.8 (0-2) % Neut # (Auto) 6300 (4700-2439) /uL Lymph # (Auto) 1500 (2973-9221) /uL [place] # (Auto) 600 (0-900) /uL Eos # (Auto) 500 H (0-450) /uL Baso # (Auto) 100 (0-100) /uL ESR (0-20) MM/HR Percent Retic (1.1-2.6) % PT 13.0 H (10.1-12.7) SECONDS INR 1.1 (0.9-1.3) APTT 20 L (26-36) SECONDS Sodium 136 L (137-145) mmol/L Potassium 3.9 (3.4-5.1) mmol/L Chloride 99 (98-107) mmol/L Carbon Dioxide 30 (22-32) mmol/L BUN 17 (7-17) mg/dL Creatinine 1.32 H (0.52-1.04) mg/dL Estimated GFR 49 L (>60) mL/min BUN/Creatinine Ratio 12.9 (6-22) Glucose 90 (70-100) mg/dL Lactate (0.7-2.1) mmol/L Calcium 9.6 (8.4-10.2) mg/dL Total Bilirubin 0.1 L (0.2-1.3) mg/dL AST 27 (14-36) IU/L ALT 16 (<35) IU/L Alkaline Phosphatase 130 H (38-126) U/L Lactate Dehydrogenase (120-246) U/L Total Creatine Kinase < 20 L (30-135) U/L CK-MB (CK-2) TNP CK-MB (CK-2) Rel Index TNP Troponin I < 0.012 (0.01-0.034) ng/mL C-Reactive Protein (<1.0) mg/dL Total Protein 6.5 (6.3-8.2) g/dL Albumin 3.2 L (3.5-5.0) g/dL Globulin 3.3 (1.7-4.1) g/dL Albumin/Globulin Ratio 1.0 (1.0-2.8) Lipase 84 (23-300) U/L Vitamin B12 (239-931) pg/mL Folate (2.76-20.0) ng/mL Procalcitonin 0.09 (<0.5) ng/mL Blood Type Antibody Screen Crossmatch 10/26/22 10/26/22 10/26/22 Range/Units 18:16 18:16 18:16 WBC (4.5-11.0) X10^3/uL RBC (4.0-5.2) X10^6/uL Hgb (12.0-16.0) g/dL Hct (36-46) % MCV (80-100) fL MCH (26-34) PG MCHC (30-36) % RDW (11.6-14.8) % Plt Count (150-400) X10^3/uL Neut % (Auto) (50-75) % Lymph % (Auto) (25-40) % [place] % (Auto) (3-14) % Eos % (Auto) (2-4) % Baso % (Auto) (0-2) % Neut # (Auto) (0608-4196) /uL Lymph # (Auto) (0282-6366) /uL [place] # (Auto) (0-900) /uL Eos # (Auto) (0-450) /uL Baso # (Auto) (0-100) /uL ESR > 140 H (0-20) MM/HR Percent Retic (1.1-2.6) % PT (10.1-12.7) SECONDS INR (0.9-1.3) APTT (26-36) SECONDS Sodium (137-145) mmol/L Potassium (3.4-5.1) mmol/L Chloride (98-107) mmol/L Carbon Dioxide (22-32) mmol/L BUN (7-17) mg/dL Creatinine (0.52-1.04) mg/dL Estimated GFR (>60) mL/min BUN/Creatinine Ratio (6-22) Glucose (70-100) mg/dL Lactate 0.6 L (0.7-2.1) mmol/L Calcium (8.4-10.2) mg/dL Total Bilirubin (0.2-1.3) mg/dL AST (14-36) IU/L ALT (<35) IU/L Alkaline Phosphatase (38-126) U/L Lactate Dehydrogenase (120-246) U/L Total Creatine Kinase (30-135) U/L CK-MB (CK-2) CK-MB (CK-2) Rel Index Troponin I (0.01-0.034) ng/mL C-Reactive Protein (<1.0) mg/dL Total Protein (6.3-8.2) g/dL Albumin (3.5-5.0) g/dL Globulin (1.7-4.1) g/dL Albumin/Globulin Ratio (1.0-2.8) Lipase (23-300) U/L Vitamin B12 (239-931) pg/mL Folate (2.76-20.0) ng/mL Procalcitonin (<0.5) ng/mL Blood Type A Positive Antibody Screen Negative Crossmatch See Detail 10/26/22 10/26/22 10/26/22 Range/Units 18:16 18:16 18:16 WBC (4.5-11.0) X10^3/uL RBC (4.0-5.2) X10^6/uL Hgb (12.0-16.0) g/dL Hct (36-46) % MCV (80-100) fL MCH (26-34) PG MCHC (30-36) % RDW (11.6-14.8) % Plt Count (150-400) X10^3/uL Neut % (Auto) (50-75) % Lymph % (Auto) (25-40) % [place] % (Auto) (3-14) % Eos % (Auto) (2-4) % Baso % (Auto) (0-2) % Neut # (Auto) (7479-6744) /uL Lymph # (Auto) (3339-8777) /uL [place] # (Auto) (0-900) /uL Eos # (Auto) (0-450) /uL Baso # (Auto) (0-100) /uL ESR (0-20) MM/HR Percent Retic 2.0 (1.1-2.6) % PT (10.1-12.7) SECONDS INR (0.9-1.3) APTT (26-36) SECONDS Sodium (137-145) mmol/L Potassium (3.4-5.1) mmol/L Chloride (98-107) mmol/L Carbon Dioxide (22-32) mmol/L BUN (7-17) mg/dL Creatinine (0.52-1.04) mg/dL Estimated GFR (>60) mL/min BUN/Creatinine Ratio (6-22) Glucose (70-100) mg/dL Lactate (0.7-2.1) mmol/L Calcium (8.4-10.2) mg/dL Total Bilirubin (0.2-1.3) mg/dL AST (14-36) IU/L ALT (<35) IU/L Alkaline Phosphatase (38-126) U/L Lactate Dehydrogenase 203 (120-246) U/L Total Creatine Kinase (30-135) U/L CK-MB (CK-2) CK-MB (CK-2) Rel Index Troponin I (0.01-0.034) ng/mL C-Reactive Protein 5.6 H (<1.0) mg/dL Total Protein (6.3-8.2) g/dL Albumin (3.5-5.0) g/dL Globulin (1.7-4.1) g/dL Albumin/Globulin Ratio (1.0-2.8) Lipase (23-300) U/L Vitamin B12 908 (239-931) pg/mL Folate > 20.0 H (2.76-20.0) ng/mL Procalcitonin (<0.5) ng/mL Blood Type Antibody Screen Crossmatch Imaging Data Chest x-ray: Radiologist's Impression: PROCEDURE:? XR CHEST 1V ? INDICATIONS:? suspected sepsis ? TECHNIQUE:? One view of the chest was acquired.? ? COMPARISON:? [facility], CHEST 2 VIEW, 10/18/2015, 12:18. ? FINDINGS:? ? Surgical changes and devices:? None.? ? Lungs and pleura:? No dense consolidation or pleural effusion. ? Mediastinum:? Mediastinal contours appear normal.? Heart size is normal.? ? Bones and chest wall:? No suspicious bony lesions.? Overlying soft tissues appear unremarkable.? ? IMPRESSION:? No acute radiographic abnormality. ? ? Dictated by: Oscar Falcon M.D. on 10/26/2022 at 17:45 ? ? Extremity x-ray #1: Radiologist's Impression: PROCEDURE:? XR HIP W PEL IF DONE LT 2V ? INDICATIONS:? Left Hip Injury ? TECHNIQUE:? AP pelvis with lateral view(s) of the left hip(s).? ? COMPARISON:? [facility], XR HIP W PEL IF DONE RT 2V, 01/09/2022, 19:13. ? FINDINGS:? ? Bones:? Bilateral hip arthroplasties.? No evidence of left hip arthroplasty hardware failure or loosening.? No fractures or dislocations.? Pelvic ring appears intact.? No suspicious bony lesions.? ? Soft tissues:? The visualized bowel gas pattern is normal.? No suspicious soft tissue calcifications.? ? ? IMPRESSION:? Expected appearance of left hip arthroplasty. ECG Data Interpretation: Normal sinus rhythm rate 82 WI interval 168 QRS [address] changes or T-wave inversions MDM Narrative Medical decision making narrative: Patient 52-year-old female who has complicated history of left hip fracture with cemented hemiarthroplasty with postop seroma and infection. Today she presents with increasing pain and increasing difficulty walking. He previously was able to walk without significant problem although today it is much more painful. She is no fever or leukocytosis. He is found to be anemic hemoglobin 6.5 hematocrit 19.4. He is not have significantly elevated ESR greater than 140 CRP 5.9. According to records on 09/29/2022 ESR was 86 CRP not checked. Patient has a history of iron-deficiency anemia she is currently getting 2 units of blood. Blood pressure is mildly low she reports that she has low blood pressure. She not dizzy or lightheaded. CT shows a fluid collection of 1.[address] Knott updated on results. Patient will likely ultimately need an antibiotic spacer however she is hesitant to do this at this time. Patient is not septic does not need it emergently. ID Dr Oconnor, updated patient's symptoms test results concern for recurrent infection versus new infection. Strongly encourage is a good sample either by needle aspiration versus OR. Recommends that culture be sent for bacterial PCR at . Once there is a sample collected probably okay to start daptomycin 8mg/kg and ceftriaxone 2 g. Also happy to follow-up outpatient once arranged. Dr. Knott updated on infectious disease recommendations. Recommend having hospitalist admit and she will work on getting a culture tomorrow. Dr. Harrison accepts patient Discharge Plan Departure Patient Disposition: Admitted As Inpatient Clinical Impression: Anemia, Left hip postoperative wound infection Admit Date/Time: 10/26/22 21:49 Admit Provider: Isrrael Harrison
--- NOTE | 2022-10-26 18:32 | DI.CT.S_ITS ---
PROCEDURE: CT LE LT W CON INDICATIONS: pain swelling prior abcess TECHNIQUE: After the administration of intravenous contrast, 3 mm axial sections acquired of the left lower extremity , with coronal and sagittal reformats. COMPARISON: None. FINDINGS: Image quality: Good Bones: There is a left hip arthroplasty. No displaced fracture or dislocation. The pelvic ring, partially seen appears intact. Soft tissues: Subcutaneous edematous tract, extending to the left proximal femur in the region of the IT band, thickness is about 1.4 cm and 5.2 cm in craniocaudal dimension. This is likely not drainable. Patent partially visualized vasculature. Above average fecal loading in the partially visualized pelvis. IMPRESSION: Edematous soft tissue tract seen in the lateral proximal thigh, extending to the region of the proximal femur. No definite osseous erosion. This region of fluid measures about 1.4 cm in thickness and 5.2 cm in craniocaudal dimension Dictated by: Oscar Falcon M.D. on 10/26/2022 at 20:27 Approved by: Oscar Falcon M.D. on 10/26/2022 at 20:32
[2022-10-26 18:34] LABS: INR 1.1 (0.9-1.3)
[2022-10-26 18:37] LABS: PTT Partial Thromboplastin Tim 20 SECONDS (26-36)
[2022-10-26 18:39] LABS: Add Manual Diff / Slide Review NO; Basophils Absolute Auto 100 /uL (0-100); Basophils Percent Auto 0.8 % (0-2); Eosinophils Absolute Auto 500 /uL (0-450); Eosinophils Percent Auto 5.7 % (2-4); Lymphocytes Absolute Auto 1500 /uL (1100-4500); Lymphocytes Percent Auto 16.5 % (25-40); Mean Corpuscular HGB Conc 33.5 % (30-36); Mean Corpuscular Hemoglobin 26.9 PG (26-34); Mean Corpuscular Volume 80.3 fL (80-100); Monocytes Absolute Auto 600 /uL (0-900); Monocytes Percent Auto 6.8 % (3-14); Neutrophils Absolute Auto 6300 /uL (1500-7000); Neutrophils Percent Auto 70.2 % (50-75); Platelet Count 411 X10^3/uL (150-400); Red Blood Cell Count 2.41 X10^6/uL (4.0-5.2); Red Cell Distribution Width 14.9 % (11.6-14.8); White Blood Cell Count 8.9 X10^3/uL (4.5-11.0)
[2022-10-26 18:41] LABS: Hematocrit 19.4 % (36-46); Hemoglobin 6.5 g/dL (12.0-16.0)
[2022-10-26 18:50] LABS: Lactate (Lactic Acid) 0.6 mmol/L (0.7-2.1)
[2022-10-26 18:51] LABS: Alanine Aminotransferase 16 IU/L (<35); Albumin 3.2 g/dL (3.5-5.0); Alkaline Phosphatase 130 U/L (38-126); Aspartate Aminotransferase 27 IU/L (14-36); BUN Creatinine Ratio 12.9 (6-22); Bilirubin Total 0.1 mg/dL (0.2-1.3); Blood Urea Nitrogen 17 mg/dL (7-17); Calcium 9.6 mg/dL (8.4-10.2); Carbon Dioxide 30 mmol/L (22-32); Chloride 99 mmol/L (98-107); Creatine Kinase < 20 U/L (30-135); Estimated Glomerular Filt Rate 49 mL/min (>60); Globulin 3.3 g/dL (1.7-4.1); Glucose 90 mg/dL (70-100); HEMOLYSIS < 15 (0-50); Lipase 84 U/L (23-300); Potassium 3.9 mmol/L (3.4-5.1); Sodium 136 mmol/L (137-145); Total Protein 6.5 g/dL (6.3-8.2)
[2022-10-26 19:03] LABS: Troponin I < 0.012 ng/mL (0.01-0.034)
[2022-10-26 19:08] LABS: Procalcitonin 0.09 ng/mL (<0.5)
[2022-10-26 19:29] LABS: C-Reactive Protein Quant 5.6 mg/dL (<1.0)
[2022-10-26 19:43] LABS: Erythrocyte Sedimentation Rate > 140 MM/HR (0-20)
[2022-10-26] MEDS: HYDROMORPHONE 1 MG INJ IV (19:50)
[2022-10-26] MEDS: ONDANSETRON 4 MG/2 ML INJ IV (19:50)
[2022-10-26 23:39] LABS: Lactate Dehydrogenase 203 U/L (120-246)
--- NOTE | 2022-10-26 23:39 | PC.NURSE ---
2332: 2nd unit of PRBC transfusion was started; blood product was examined and no clots noted. Patient is in no acute distress. VSS. Primary RN in the room to monitor for s/s transfusion reaction.
[2022-10-26] MEDS: OXYCODONE IR 5 MG TABLET PO (23:57)
[2022-10-27 00:30] LABS: Vitamin B12 908 pg/mL (239-931)
[2022-10-27 00:47] LABS: Folate > 20.0 ng/mL (2.76-20.0)
[2022-10-27 02:30] VITALS: BP 123/77; PULSE 88; RESP 16; TEMP 36.8; O2SAT 97
--- NOTE | 2022-10-27 02:45 | PC.NURSE ---
0230: 2nd unit of PRBC transfusion is finished. Patient is in no acute distress. VSS. No s/s transfusion reaction noted.
[2022-10-27 04:00] VITALS: BP 107/71; PULSE 83; RESP 16; TEMP 36.9; O2SAT 96
[2022-10-27 05:20] LABS: BUN Creatinine Ratio 12.7 (6-22); Blood Urea Nitrogen 14 mg/dL (7-17); Calcium 9.6 mg/dL (8.4-10.2); Carbon Dioxide 32 mmol/L (22-32); Chloride 100 mmol/L (98-107); Estimated Glomerular Filt Rate > 60 mL/min (>60); Glucose 88 mg/dL (70-100); HEMOLYSIS < 15 (0-50); Potassium 3.9 mmol/L (3.4-5.1); Sodium 138 mmol/L (137-145)
[2022-10-27 05:28] LABS: Add Manual Diff / Slide Review NO; Basophils Absolute Auto 100 /uL (0-100); Basophils Percent Auto 0.8 % (0-2); Eosinophils Absolute Auto 500 /uL (0-450); Eosinophils Percent Auto 6.6 % (2-4); Hemoglobin 9.7 g/dL (12.0-16.0); Lymphocytes Absolute Auto 1400 /uL (1100-4500); Lymphocytes Percent Auto 17.6 % (25-40); Mean Corpuscular HGB Conc 34.1 % (30-36); Mean Corpuscular Hemoglobin 27.8 PG (26-34); Mean Corpuscular Volume 81.6 fL (80-100); Monocytes Absolute Auto 500 /uL (0-900); Monocytes Percent Auto 6.8 % (3-14); Neutrophils Absolute Auto 5400 /uL (1500-7000); Neutrophils Percent Auto 68.2 % (50-75); Platelet Count 466 X10^3/uL (150-400); Red Blood Cell Count 3.49 X10^6/uL (4.0-5.2); Red Cell Distribution Width 15.1 % (11.6-14.8)
[2022-10-27 05:30] LABS: Hematocrit 28.5 % (36-46)
--- NOTE | 2022-10-27 06:27 | PM.HP.1 ---
History of Present Illness History of Present Illness Date Patient Seen: 10/26/22 Time Patient Seen: 22:00 Chief complaint: lt leg injury Narrative: Ms. Myers is a 52W with PMH chronic pain, osteoporosis, ulcerative colitis and recently complicated post op course after breaking her hip. She has been in [place] until recently. Apparently in July she had a fall and had a left femoral neck fracture. She had a left hemiarthroplasty performed. Afterwards she was noted to have dehiscence, a large seroma that ruptured. She needed to return back to the OR in early August and replacement of femoral head and wound vac placement. She has cultures done at that time which ultimately grew back staph epidermidis. She ultimately was on daptomycin for it appears 8 weeks until October 01. After that she was ordered for suppressive antibiotics for a year, initially with doxycycline, but she had symptoms to this, and was switched to ciprofloxacin. She was followed by ID and ortho in [facility], she was found to have anemia, and has a history of iron deficiency. She decided to return to [place] recently. Over the last few days she has noted worsening left hip pain which brought her to the hospital. She feels weak. She has no fevers/chills. Her last ESR on her labs appeared to be in the 80s in September 30, 2022. She has noted no GI bleeding, black stools, or vomiting of blood. She has had many colonoscopies before, and really wants to avoid undergoing one here. In the ED workup was done, vitals notable for afebrile, heart rate 80s-90s, respiratoy rate 16, blood pressure 100s-110s/70s, sats 97% on room air. Labs reviewed by me and notable for WBC 8.9, hgb 9.4, plts 210. Na 136, k 3.9. BUN 17, creatinine 1.32. Procal 0.09. Chest xray reviewed by me and negative for any acute process. Hip xray with left hip arthroplasty. CT of left hip shows edematous soft tissue tract in lateral thigh extending to proximal femur. Region of fluid is reported at 1.4x5.2 cm. ID was consulted and recommended attempting to sample fluid prior to antibiotics and then after could empirically start daptomycin and ceftriaxone, they recommended culture be se sent for bacterial pcr to . Ortho was consulted to assist in fluid sample collection. She was ordered for blood transfusion and admitted for further treatment. [facility] Medical History Allergies Anemia Ankle pain Anxiety disorder Cachexia Cervical somatic dysfunction Cervical spine pain Chronic back pain Chronic pain due to injury Chronic pain of right knee Colitis Cranial somatic dysfunction CRPS (complex regional pain syndrome type II) Fibromyalgia Fractures GERD (gastroesophageal reflux disease) GI bleeding Irritable bowel syndrome Lumbar region somatic dysfunction Migraines Osteoarthritis Osteoporosis Pelvic somatic dysfunction Peripheral neuropathy PTSD (post-traumatic stress disorder) Sacral pain Sacral region somatic dysfunction Scoliosis Screening for thyroid disorder Segmental and somatic dysfunction of abdomen and other regions Shoulder pain Somatic dysfunction of lower extremity Thoracic region somatic dysfunction Ulcerative colitis Weight loss, abnormal Surgical History Anesthesia History of bladder surgery Previous back surgery (~1997) Family History Father History of heart disease Stroke Grandfather Cancer Stroke Grandmother Diabetes mellitus Hyperlipidemia Hypertension Stroke Grandfather Cancer Mental health problem Grandmother Cancer Social History household members: family Smoking Status: Never smoker alcohol intake: never Meds Home Medications and Allergies Home Medications Medication Instructions Recorded Confirmed Type Massage therapy #6 ea 11/07/20 10/26/22 Rx Disabled Parking Permit #1 ea 02/11/21 10/26/22 Rx Disabled Parking #1 ea 06/05/22 10/26/22 Rx lidocaine 5 % topical patch 1 patch topical DAILY #30 ea 08/10/22 10/26/22 Rx cyclobenzaprine 10 mg tablet See Rx Instructions .Route 08/11/22 10/26/22 Rx .COMPLEX #90 tabs methadone 10 mg tablet See Rx Instructions .Route 09/09/22 10/26/22 Rx .COMPLEX #120 tabs aspirin 81 mg tablet,delayed 81 mg PO BID 10/26/22 10/26/22 History release calcium carbonate 500 mg calcium 1,500 mg PO TID 10/26/22 10/26/22 History (1,250 mg) chewable tablet cholecalciferol (vitamin D3) 125 125 mcg PO DAILY 10/26/22 10/26/22 History mcg (5,000 unit) capsule clonazepam 1 mg tablet 1 mg PO TID 10/26/22 10/26/22 History ferrous gluconate 324 mg (37.5 mg 324 mg PO BID 10/26/22 10/26/22 History iron) tablet oxycodone 5 mg tablet 5 mg PO Q6H PRN Pain (Scale Score 10/26/22 10/26/22 History 7-10) polyethylene glycol 3350 17 gram 17 g PO DAILY 10/26/22 10/26/22 History oral powder packet (Miralax) Allergies Allergy/AdvReac Type Severity Reaction Status Date / Time Sulfa (Sulfonamide Allergy Unknown SORES IN Verified 04/29/22 15:05 Antibiotics) THE MOUTH [SULFA (SULFONAMIDE ANTIBIOTICS)] cortisone [CORTISONE] AdvReac Unknown UNABLE TO Verified 04/29/22 15:05 SLEEP, GETS CRAZY doxycycline AdvReac Gastrointestinal Verified 10/26/22 16:03 Upset Review of Systems Review of Systems Narrative: 14 systems reviewed and negative aside from what is noted in HPI Exam Vital Signs (past 8 hours): - 10/26/22 23:13 10/26/22 23:20 10/26/22 23:22 Temperature 97.8 F 97.6 F 97.6 F Pulse Rate 83 74 74 Respiratory Rate 18 16 16 Blood Pressure 115/82 97/79 97/79 Pulse Oximetry 97 Oxygen Delivery Method Oxygen Flow Rate 10/26/22 23:00 10/26/22 23:10 10/26/22 23:45 Temperature 97.8 F 97.0 F L Pulse Rate 85 84 Respiratory Rate 19 16 Blood Pressure 115/82 104/74 Pulse Oximetry 97 97 Oxygen Delivery Method Room Air Oxygen Flow Rate 0 10/27/22 02:30 10/27/22 02:30 10/27/22 04:00 Temperature 98.3 F 98.5 F Pulse Rate 88 83 Respiratory Rate 16 16 Blood Pressure 123/77 107/71 Pulse Oximetry 97 96 Oxygen Delivery Method Room Air Oxygen Flow Rate 0 Oxygen Delivery Method Room Air Oxygen Flow Rate 0 Narrative Exam Narrative: GEN: weak, lethargic, sleepy, chronically ill appearing, cachectic HEENT: moist mucous membranes, pale conjunctiva PULM: clear bilaterally CV: regular rate and rhythm, no murmurs ABD: soft, nontender, nondistended EXT: warm and well perfused, left hip tender to palpation, no pus noted, incision appears mildly swollen NEURO: arousable but sleepy, no focal deficits Objective Labs 10/27/22 04:57 10/27/22 04:57 Labs: Laboratory Results - last 24 hr 10/26/22 10/26/22 10/26/22 18:16 18:16 18:16 WBC 8.9 RBC 2.41 L Hgb 6.5 L* Hct 19.4 L* MCV 80.3 MCH 26.9 MCHC 33.5 RDW 14.9 H Plt Count 411 H Neut % (Auto) 70.2 Lymph % (Auto) 16.5 L Sebastian % (Auto) 6.8 Eos % (Auto) 5.7 H Baso % (Auto) 0.8 Neut # (Auto) 6300 Lymph # (Auto) 1500 Sebastian # (Auto) 600 Eos # (Auto) 500 H Baso # (Auto) 100 ESR Percent Retic PT 13.0 H INR 1.1 APTT 20 L Sodium 136 L Potassium 3.9 Chloride 99 Carbon Dioxide 30 BUN 17 Creatinine 1.32 H Estimated GFR 49 L BUN/Creatinine Ratio 12.9 Glucose 90 Lactate Calcium 9.6 Iron TIBC % Saturation Transferrin Total Bilirubin 0.1 L AST 27 ALT 16 Alkaline Phosphatase 130 H Lactate Dehydrogenase Total Creatine Kinase < 20 L CK-MB (CK-2) TNP CK-MB (CK-2) Rel Index TNP Troponin I < 0.012 C-Reactive Protein Total Protein 6.5 Albumin 3.2 L Globulin 3.3 Albumin/Globulin Ratio 1.0 Lipase 84 Vitamin B12 Folate Procalcitonin 0.09 Blood Type Antibody Screen Crossmatch 10/26/22 10/26/22 10/26/22 18:16 18:16 18:16 WBC RBC Hgb Hct MCV MCH MCHC RDW Plt Count Neut % (Auto) Lymph % (Auto) Sebastian % (Auto) Eos % (Auto) Baso % (Auto) Neut # (Auto) Lymph # (Auto) Sebastian # (Auto) Eos # (Auto) Baso # (Auto) ESR > 140 H Percent Retic PT INR APTT Sodium Potassium Chloride Carbon Dioxide BUN Creatinine Estimated GFR BUN/Creatinine Ratio Glucose Lactate 0.6 L Calcium Iron TIBC % Saturation Transferrin Total Bilirubin AST ALT Alkaline Phosphatase Lactate Dehydrogenase Total Creatine Kinase CK-MB (CK-2) CK-MB (CK-2) Rel Index Troponin I C-Reactive Protein Total Protein Albumin Globulin Albumin/Globulin Ratio Lipase Vitamin B12 Folate Procalcitonin Blood Type A Positive Antibody Screen Negative Crossmatch See Detail 10/26/22 10/26/22 10/26/22 18:16 18:16 18:16 WBC RBC Hgb Hct MCV MCH MCHC RDW Plt Count Neut % (Auto) Lymph % (Auto) Sebastian % (Auto) Eos % (Auto) Baso % (Auto) Neut # (Auto) Lymph # (Auto) Sebastian # (Auto) Eos # (Auto) Baso # (Auto) ESR Percent Retic 2.0 PT INR APTT Sodium Potassium Chloride Carbon Dioxide BUN Creatinine Estimated GFR BUN/Creatinine Ratio Glucose Lactate Calcium Iron TIBC % Saturation Transferrin Total Bilirubin AST ALT Alkaline Phosphatase Lactate Dehydrogenase 203 Total Creatine Kinase CK-MB (CK-2) CK-MB (CK-2) Rel Index Troponin I C-Reactive Protein 5.6 H Total Protein Albumin Globulin Albumin/Globulin Ratio Lipase Vitamin B12 908 Folate > 20.0 H Procalcitonin Blood Type Antibody Screen Crossmatch 10/27/22 10/27/22 10/27/22 04:57 04:57 04:57 WBC 8.0 RBC 3.49 L Hgb 9.7 L Hct 28.5 L MCV 81.6 MCH 27.8 MCHC 34.1 RDW 15.1 H Plt Count 466 H Neut % (Auto) 68.2 Lymph % (Auto) 17.6 L Sebastian % (Auto) 6.8 Eos % (Auto) 6.6 H Baso % (Auto) 0.8 Neut # (Auto) 5400 Lymph # (Auto) 1400 Sebastian # (Auto) 500 Eos # (Auto) 500 H Baso # (Auto) 100 ESR Percent Retic PT INR APTT Sodium 138 Potassium 3.9 Chloride 100 Carbon Dioxide 32 BUN 14 Creatinine 1.10 H Estimated GFR > 60 BUN/Creatinine Ratio 12.7 Glucose 88 Lactate Calcium 9.6 Iron 226 H D TIBC 229 L % Saturation 99 H D Transferrin 170 L Total Bilirubin AST ALT Alkaline Phosphatase Lactate Dehydrogenase Total Creatine Kinase CK-MB (CK-2) CK-MB (CK-2) Rel Index Troponin I C-Reactive Protein Total Protein Albumin Globulin Albumin/Globulin Ratio Lipase Vitamin B12 Folate Procalcitonin Blood Type Antibody Screen Crossmatch Assessment & Plan Assessment & Plan narrative: 1. History of infected left hip -concern with worsening pain, rising esr, and fluid collection that recurrent vs new infection has occurred -probably will need antibiotics spacer per ortho -for now can keep off antibiotics until fluid is sample per ID -send bacterial PCR from fluid to [facility] per ID -after can treat empirically with dapto, ceftriaxone until culture results -is currently on cipro for at least 1 year of suppressive antibiotics -NPO at midnight for possible intervention -will need referral to [facility] ID on discharge 2. Anemia -likely iron deficiency -labs showed normal iron levels, but this was drawn after blood transfusion -will need to continue iron supplementation on discharge -could also be secondary to anemia of chronic disease and/or slow blood loss from history of seroma and chronic hip infection -trend hemoglobin daily -guaiac stools -she would like to avoid colonoscopy 3. SHERRILL -creatinine on admission of 1.32, baseline appears 0.8-0.9 -suspect secondary to hypovolemia, and will improve with blood transfusion -continue to trend 4. Severe protein calorie malnutrition -bmi 17.8 -dietitian consult 5. Chronic pain -is on both oxy and methadone -for now just continue oxycodone as she was lethargic on admission -will probably need to restart methadone 6. Anxiety -prn clonazepam is home med I have discussed plan and obtained history from the patient. I have discussed plan of care with ED physician and bedside nurse. I have reviewed labs, imaging, and previous medical records CODE: Full Proxy: Mother, Viviana Myers
[2022-10-27] MEDS: OXYCODONE IR 5 MG TABLET PO ×2 (07:32→19:44)
[2022-10-27] MEDS: clonazePAM 0.5 MG TABLET 1 MG PO ×2 (07:36→22:43)
--- NOTE | 2022-10-27 08:51 | PM.PN.1 ---
Subjective Subjective Interval history: Patient sleeping. Mother at bedside and her questions were answered. Ortho to attempt aspiration of hip. Hgb improved to 9.7 and Cr to 1.1. Exam Vital Signs (past 8 hours): - 10/27/22 02:30 10/27/22 02:30 10/27/22 04:00 Temperature 98.3 F 98.5 F Pulse Rate 88 83 Respiratory Rate 16 16 Blood Pressure 123/77 107/71 Pulse Oximetry 97 96 Oxygen Delivery Method Room Air Oxygen Flow Rate 0 Oxygen Delivery Method Room Air Oxygen Flow Rate 0 Narrative Exam Narrative: GEN: weak, lethargic, sleepy, chronically ill appearing, cachectic HEENT: moist mucous membranes, pale conjunctiva PULM: clear bilaterally CV: regular rate and rhythm, no murmurs ABD: soft, nontender, nondistended EXT: warm and well perfused, left hip tender to palpation, no pus noted, incision appears mildly swollen NEURO: arousable but sleepy, no focal deficits Objective Labs 10/27/22 04:57 10/27/22 04:57 Labs: Laboratory Results - last 24 hr 10/26/22 10/26/22 10/26/22 18:16 18:16 18:16 WBC 8.9 RBC 2.41 L Hgb 6.5 L* Hct 19.4 L* MCV 80.3 MCH 26.9 MCHC 33.5 RDW 14.9 H Plt Count 411 H Neut % (Auto) 70.2 Lymph % (Auto) 16.5 L Stokes % (Auto) 6.8 Eos % (Auto) 5.7 H Baso % (Auto) 0.8 Neut # (Auto) 6300 Lymph # (Auto) 1500 Stokes # (Auto) 600 Eos # (Auto) 500 H Baso # (Auto) 100 ESR Percent Retic PT 13.0 H INR 1.1 APTT 20 L Sodium 136 L Potassium 3.9 Chloride 99 Carbon Dioxide 30 BUN 17 Creatinine 1.32 H Estimated GFR 49 L BUN/Creatinine Ratio 12.9 Glucose 90 Lactate Calcium 9.6 Iron TIBC % Saturation Transferrin Total Bilirubin 0.1 L AST 27 ALT 16 Alkaline Phosphatase 130 H Lactate Dehydrogenase Total Creatine Kinase < 20 L CK-MB (CK-2) TNP CK-MB (CK-2) Rel Index TNP Troponin I < 0.012 C-Reactive Protein Total Protein 6.5 Albumin 3.2 L Globulin 3.3 Albumin/Globulin Ratio 1.0 Lipase 84 Vitamin B12 Folate Procalcitonin 0.09 Blood Type Antibody Screen Crossmatch 10/26/22 10/26/22 10/26/22 18:16 18:16 18:16 WBC RBC Hgb Hct MCV MCH MCHC RDW Plt Count Neut % (Auto) Lymph % (Auto) Stokes % (Auto) Eos % (Auto) Baso % (Auto) Neut # (Auto) Lymph # (Auto) Stokes # (Auto) Eos # (Auto) Baso # (Auto) ESR > 140 H Percent Retic PT INR APTT Sodium Potassium Chloride Carbon Dioxide BUN Creatinine Estimated GFR BUN/Creatinine Ratio Glucose Lactate 0.6 L Calcium Iron TIBC % Saturation Transferrin Total Bilirubin AST ALT Alkaline Phosphatase Lactate Dehydrogenase Total Creatine Kinase CK-MB (CK-2) CK-MB (CK-2) Rel Index Troponin I C-Reactive Protein Total Protein Albumin Globulin Albumin/Globulin Ratio Lipase Vitamin B12 Folate Procalcitonin Blood Type A Positive Antibody Screen Negative Crossmatch See Detail 10/26/22 10/26/22 10/26/22 18:16 18:16 18:16 WBC RBC Hgb Hct MCV MCH MCHC RDW Plt Count Neut % (Auto) Lymph % (Auto) Stokes % (Auto) Eos % (Auto) Baso % (Auto) Neut # (Auto) Lymph # (Auto) Stokes # (Auto) Eos # (Auto) Baso # (Auto) ESR Percent Retic 2.0 PT INR APTT Sodium Potassium Chloride Carbon Dioxide BUN Creatinine Estimated GFR BUN/Creatinine Ratio Glucose Lactate Calcium Iron TIBC % Saturation Transferrin Total Bilirubin AST ALT Alkaline Phosphatase Lactate Dehydrogenase 203 Total Creatine Kinase CK-MB (CK-2) CK-MB (CK-2) Rel Index Troponin I C-Reactive Protein 5.6 H Total Protein Albumin Globulin Albumin/Globulin Ratio Lipase Vitamin B12 908 Folate > 20.0 H Procalcitonin Blood Type Antibody Screen Crossmatch 10/27/22 10/27/22 10/27/22 04:57 04:57 04:57 WBC 8.0 RBC 3.49 L Hgb 9.7 L Hct 28.5 L MCV 81.6 MCH 27.8 MCHC 34.1 RDW 15.1 H Plt Count 466 H Neut % (Auto) 68.2 Lymph % (Auto) 17.6 L Stokes % (Auto) 6.8 Eos % (Auto) 6.6 H Baso % (Auto) 0.8 Neut # (Auto) 5400 Lymph # (Auto) 1400 Stokes # (Auto) 500 Eos # (Auto) 500 H Baso # (Auto) 100 ESR Percent Retic PT INR APTT Sodium 138 Potassium 3.9 Chloride 100 Carbon Dioxide 32 BUN 14 Creatinine 1.10 H Estimated GFR > 60 BUN/Creatinine Ratio 12.7 Glucose 88 Lactate Calcium 9.6 Iron 226 H D TIBC 229 L % Saturation 99 H D Transferrin 170 L Total Bilirubin AST ALT Alkaline Phosphatase Lactate Dehydrogenase Total Creatine Kinase CK-MB (CK-2) CK-MB (CK-2) Rel Index Troponin I C-Reactive Protein Total Protein Albumin Globulin Albumin/Globulin Ratio Lipase Vitamin B12 Folate Procalcitonin Blood Type Antibody Screen Crossmatch [facility] Medical History Allergies Anemia Ankle pain Anxiety disorder Cachexia Cervical somatic dysfunction Cervical spine pain Chronic back pain Chronic pain due to injury Chronic pain of right knee Colitis Cranial somatic dysfunction CRPS (complex regional pain syndrome type II) Fibromyalgia Fractures GERD (gastroesophageal reflux disease) GI bleeding Irritable bowel syndrome Lumbar region somatic dysfunction Migraines Osteoarthritis Osteoporosis Pelvic somatic dysfunction Peripheral neuropathy PTSD (post-traumatic stress disorder) Sacral pain Sacral region somatic dysfunction Scoliosis Screening for thyroid disorder Segmental and somatic dysfunction of abdomen and other regions Shoulder pain Somatic dysfunction of lower extremity Thoracic region somatic dysfunction Ulcerative colitis Weight loss, abnormal Surgical History Anesthesia History of bladder surgery Previous back surgery (~1997) Family History Father History of heart disease Stroke Grandfather Cancer Stroke Grandmother Diabetes mellitus Hyperlipidemia Hypertension Stroke Grandfather Cancer Mental health problem Grandmother Cancer Social History household members: family Smoking Status: Never smoker alcohol intake: never Assessment & Plan Assessment & Plan narrative: 1. History of infected left hip -concern with worsening pain, rising esr, and fluid collection that recurrent vs new infection has occurred -ortho deferring abx spacer due to complexity of surgery -for now can keep off antibiotics until fluid sample per ID -send bacterial PCR from fluid to [facility] per ID -after can treat empirically with dapto, ceftriaxone until culture results -is currently on cipro for at least 1 year of suppressive antibiotics -aspiration by ortho -will need referral to [facility] on discharge 2. Anemia, improved -likely iron deficiency, iron level of 20 -labs showed normal iron levels, but this was drawn after blood transfusion -will need to continue iron supplementation on discharge -could also be secondary to anemia of chronic disease and/or slow blood loss from history of seroma and chronic hip infection -trend hemoglobin daily -guaiac stool check -Hgb improved to 9.7 after 2 units of PRBC -she would like to avoid colonoscopy 3. SHERRILL, improving -creatinine on admission of 1.32, baseline appears 0.8-0.9 -suspect secondary to hypovolemia, and will improve with blood transfusion -continue to trend 4. Severe protein calorie malnutrition -bmi 17.8 -dietitian consult 5. Chronic pain -is on both oxy and methadone -for now just continue oxycodone as she was lethargic on admission -continue home methadone 10mg q6h 6. Anxiety -prn clonazepam is home med CODE: Full Proxy: Mother, Viviana Myers Dispo: Pending aspiration and abx selection.
[2022-10-27 09:39] VITALS: BP 110/66; PULSE 78; RESP 17; TEMP 36.6; O2SAT 96
--- NOTE | 2022-10-27 10:59 | CM.DANOTE ---
Initial DCP Assessment Note Patient is a 52 yo female, lives in [place] during the winter, here in [place] with her mom currently; presents d/t increasing leg pain. PMH includes chronic regional pain syndrome, PTSD, anxiety disorder, cachexia, ulcerative colitis, osteoporosis w/h/o fractures and recent hip fx and repair Patient has recent h/o hip infection after hip repair in [place] w/need for ongoing IV abx. Patient has and infectious disease provider in [place] that has been following abx orders Dr Huff anticipates ortho consult and likely OR for placement of an abx spacer PCP [place] Macias/BC Met w/patient to introduce self and role. Patient currently living with her mom and plans to discharge with her mom to assist as needed, patient agreeable to HH if recommended and has no agency preference Patient cannot remember the name of the agency that had provided her home infusion in [place]. Patient tells this SAND HAULER she hopes to get a PICC placed if she needs continuation of ongoing IV abx Patient describes the last year as hell r/t hip fracture, repair and post operative complications with need for extensive inpatient and outpatient follow up; in the setting of chronic complex regional pain syndrome Patient denies needs from this CM team currently although appreciative for the visit CM team will plan to follow closely to r/o any coordination need for HH and/or home infusion VENKATA Sabillon Discharge Planning/Care Management CM Discharge Assessment Start: 10/27/22 10:54 Freq: Status: Active Protocol: Document 10/27/22 10:54 ELTON (Rec: 10/27/22 10:59 ELTON [id number]) Discharge Planning Assessment Assigned Marketing Assistant [employer] VENKATA Barclay DPOA/Assigned Designee Name mother Armendariz Contact Information [phone] Advance Directives? No History Provided By Patient,Medical Record Has Patient been admitted in last 30 No days? Comment Here in January 2022- Hip fx Prior Living Arrangements Apartment/Condo Household Members family Type of transporation used prior to Relies on Others admit Independent with ADL's Yes: Poor activity tolerance r /t pain Is patient alert and oriented? Yes Needs Assistance With Home Chores / Shopping Barriers to Discharge No Comment DC needs unknown at this time. Anticipate home. po vs IV abx (?) Discharge Plan Home Transportation Arrangement Family Referrals Initiated None needed Additional Comment CM team will plan to follow closely in case any DC needs or concerns arise
[2022-10-27] MEDS: METHADONE 10 MG TABLET PO ×3 (11:09→22:42)
[2022-10-27 14:23] VITALS: BP 118/78; PULSE 80; RESP 16; TEMP 36.6; O2SAT 97
[2022-10-27 14:35] LABS: Iron 20 ug/dL (37-170)
[2022-10-27 17:21] VITALS: BP 110/78; PULSE 88; RESP 18; TEMP 36.6; O2SAT 96
--- NOTE | 2022-10-27 19:36 | PM.HP.1 ---
History of Present Illness History of Present Illness Date Patient Seen: 10/27/22 Time Patient Seen: 10:30 Chief complaint: lt leg injury Narrative: This is a 52-year-old female with chronic health problems who was in [facility] when she apparently fell in July and sustained a left femoral neck fracture. She had a cemented left hemiarthroplasty performed. She developed a very large hip seroma which ruptured and drained and she had difficulty with substantial drainage. She returned to the operating room about 3 weeks postoperatively and had a femoral head exchange and a wound VAC placed. She had cultures done in [place] which reportedly grew a Staph epidermidis. She was then placed on IV daptomycin for about 8 weeks until 10/01/2022. They placed her on suppressive antibiotics with a plan to keep her on them for at least a year. She was started on doxycycline but she had symptoms related to this and then was switched to ciprofloxacin. She and her mom returned to [place] recently and their trailer because it was getting hot in [place]. She has a history of some chronic anemia and she was anemic in [place] but she notes that she is markedly weaker than she was previously and came to the emergency room because she primarily because she was feeling weak. She also has had some increased left hip pain. She is had no recent fevers or chills or drainage. She had ESR in the 80s on for 11/24/2022. She denies a history of recent GI bleeding, black tarry stools or vomiting blood. She has a known history of colitis and has had multiple colonoscopies in the past. She was noted to be profoundly anemic in the emergency room and required blood transfusions. Her white blood cell count was 8.9. Her sed rate was greater than 140, C-reactive protein was 5.6. [facility] Medical History Allergies Anemia Ankle pain Anxiety disorder Cachexia Cervical somatic dysfunction Cervical spine pain Chronic back pain Chronic pain due to injury Chronic pain of right knee Colitis Cranial somatic dysfunction CRPS (complex regional pain syndrome type II) Fibromyalgia Fractures GERD (gastroesophageal reflux disease) GI bleeding Irritable bowel syndrome Lumbar region somatic dysfunction Migraines Osteoarthritis Osteoporosis Pelvic somatic dysfunction Peripheral neuropathy PTSD (post-traumatic stress disorder) Sacral pain Sacral region somatic dysfunction Scoliosis Screening for thyroid disorder Segmental and somatic dysfunction of abdomen and other regions Shoulder pain Somatic dysfunction of lower extremity Thoracic region somatic dysfunction Ulcerative colitis Weight loss, abnormal Surgical History Anesthesia History of bladder surgery Previous back surgery (~1997) Family History Father History of heart disease Stroke Grandfather Cancer Stroke Grandmother Diabetes mellitus Hyperlipidemia Hypertension Stroke Grandfather Cancer Mental health problem Grandmother Cancer Social History household members: family Smoking Status: Never smoker alcohol intake: never Meds Home Medications and Allergies Home Medications Medication Instructions Recorded Confirmed Type Massage therapy #6 ea 11/07/20 10/26/22 Rx Disabled Parking Permit #1 ea 02/11/21 10/26/22 Rx Disabled Parking #1 ea 06/05/22 10/26/22 Rx lidocaine 5 % topical patch 1 patch topical DAILY #30 ea 08/10/22 10/26/22 Rx cyclobenzaprine 10 mg tablet See Rx Instructions .Route 08/11/22 10/26/22 Rx .COMPLEX #90 tabs methadone 10 mg tablet See Rx Instructions .Route 09/09/22 10/26/22 Rx .COMPLEX #120 tabs aspirin 81 mg tablet,delayed 81 mg PO BID 10/26/22 10/26/22 History release calcium carbonate 500 mg calcium 1,500 mg PO TID 10/26/22 10/26/22 History (1,250 mg) chewable tablet cholecalciferol (vitamin D3) 125 125 mcg PO DAILY 10/26/22 10/26/22 History mcg (5,000 unit) capsule clonazepam 1 mg tablet 1 mg PO TID 10/26/22 10/26/22 History ferrous gluconate 324 mg (37.5 mg 324 mg PO BID 10/26/22 10/26/22 History iron) tablet oxycodone 5 mg tablet 5 mg PO Q6H PRN Pain (Scale Score 10/26/22 10/26/22 History 7-10) polyethylene glycol 3350 17 gram 17 g PO DAILY 10/26/22 10/26/22 History oral powder packet (Miralax) Allergies Allergy/AdvReac Type Severity Reaction Status Date / Time Sulfa (Sulfonamide Allergy Unknown SORES IN Verified 04/29/22 15:05 Antibiotics) THE MOUTH [SULFA (SULFONAMIDE ANTIBIOTICS)] cortisone [CORTISONE] AdvReac Unknown UNABLE TO Verified 04/29/22 15:05 SLEEP, GETS CRAZY doxycycline AdvReac Gastrointestinal Verified 10/26/22 16:03 Upset Review of Systems Review of Systems Narrative: She notes slightly worsening left hip pain. She has gotten a little worse since she stopped her daptomycin. She did have a PICC line in for a prolonged period time. She felt weak sick is why she came to the emergency room. She is a known history of chronic anemia. She is not had recent fever or chills. Exam Vital Signs (past 8 hours): - 10/27/22 14:23 10/27/22 17:21 Temperature 97.9 F 98 F Pulse Rate 80 88 Respiratory Rate 16 18 Blood Pressure 118/78 110/78 Pulse Oximetry 97 96 Oxygen Flow Rate 0 0 Oxygen Delivery Method Room Air Oxygen Flow Rate 0 Narrative Exam Narrative: HEENT is benign in general she is alert she is oriented she is little confused about her history in general, lungs are clear cor is regular rate and rhythm she is thin and somewhat cachectic, her right hip shows a well-healed incision no pain with range of motion her left hip shows an incision but in the midportion of it is slightly erythematous and slightly fluctuant. She does have some pain with range of motion in the hip and she has difficulty with active hip flexion and is using her hands to help assist flexing her hip. There is no open wound. There is some pain with range of motion. She can fire toe flexors and extensors, calf to soft distally Objective Labs 10/27/22 04:57 10/27/22 04:57 Labs: Laboratory Results - last 24 hr 10/26/22 10/26/22 10/26/22 18:16 18:16 18:16 WBC RBC Hgb Hct MCV MCH MCHC RDW Plt Count Neut % (Auto) Lymph % (Auto) [place] % (Auto) Eos % (Auto) Baso % (Auto) Neut # (Auto) Lymph # (Auto) [place] # (Auto) Eos # (Auto) Baso # (Auto) ESR > 140 H Percent Retic 2.0 Sodium Potassium Chloride Carbon Dioxide BUN Creatinine Estimated GFR BUN/Creatinine Ratio Glucose Calcium Iron TIBC % Saturation Transferrin Lactate Dehydrogenase Vitamin B12 Folate Blood Type A Positive Antibody Screen Negative Crossmatch See Detail 10/26/22 10/26/22 10/27/22 18:16 18:16 04:57 WBC RBC Hgb Hct MCV MCH MCHC RDW Plt Count Neut % (Auto) Lymph % (Auto) [place] % (Auto) Eos % (Auto) Baso % (Auto) Neut # (Auto) Lymph # (Auto) [place] # (Auto) Eos # (Auto) Baso # (Auto) ESR Percent Retic Sodium Potassium Chloride Carbon Dioxide BUN Creatinine Estimated GFR BUN/Creatinine Ratio Glucose Calcium Iron 20 L Cancelled TIBC Cancelled % Saturation Cancelled Transferrin Cancelled Lactate Dehydrogenase 203 Vitamin B12 908 Folate > 20.0 H Blood Type Antibody Screen Crossmatch 10/27/22 10/27/22 04:57 04:57 WBC 8.0 RBC 3.49 L Hgb 9.7 L Hct 28.5 L MCV 81.6 MCH 27.8 MCHC 34.1 RDW 15.1 H Plt Count 466 H Neut % (Auto) 68.2 Lymph % (Auto) 17.6 L [place] % (Auto) 6.8 Eos % (Auto) 6.6 H Baso % (Auto) 0.8 Neut # (Auto) 5400 Lymph # (Auto) 1400 [place] # (Auto) 500 Eos # (Auto) 500 H Baso # (Auto) 100 ESR Percent Retic Sodium 138 Potassium 3.9 Chloride 100 Carbon Dioxide 32 BUN 14 Creatinine 1.10 H Estimated GFR > 60 BUN/Creatinine Ratio 12.7 Glucose 88 Calcium 9.6 Iron TIBC % Saturation Transferrin Lactate Dehydrogenase Vitamin B12 Folate Blood Type Antibody Screen Crossmatch x-rays show a cemented left hip unipolar with acceptable alignment. There is no obvious sequestrum, CT scan does show soft tissue swelling in the subcutaneous tissues and a small fluid collection. There is not appear to be gross loosening of the prosthesis. Assessment & Plan Assessment and plan (1) Anemia: Status: Acute (2) Left hip postoperative wound infection: Status: Acute (3) Subcapital fracture of neck of femur: Qualifiers: Encounter type: initial encounter Fracture type: closed Laterality: right Qualified Code(s): S72.011A - Unspecified intracapsular fracture of right femur, initial encounter for closed fracture Status: Acute (4) Cachexia: Status: Acute (5) Infection of prosthetic total hip joint: Status: Acute Plan Aspiration of her left hip to get culture and sensitivity. Unfortunately she has a cemented left hip unipolar. He will be very difficult to remove her prosthesis and adequately cure her infection has removing every molecule of cement would be quite difficult. She was admitted for anemia and weakness. She is not currently febrile. She has had a 2 month course of IV daptomycin and did have elevated sedimentation rate and C-reactive protein when she left [facility] where she had her hip replacement which became infection did. She was returned to the operating room and went an exchange underwent an exchange and also an irrigation and debridement of her hematoma. Her infectious disease and orthopedic doctor in [place] apparently plan to proceed with a 1 year course of suppressive oral antibiotics. They have placed her on oral ciprofloxacin. She is noting some increased left hip pain. Infectious disease consultation was requested and there was a request to get additional cultures prior to restarting antibiotics. Assessment & Plan narrative: Procedure note left hip was prepped with ChloraPrep. About 1 cc of deep fluid was aspirated. It was sent for Gram stain culture and sensitivity and also PCR. The fluid was removed from about the mid section of the incision it did track down into the incision region. It was serous to slightly cloudy. She tolerated the procedure well. Complications none. Plan check cultures. She does appear to be having difficulty and potentially is failing her current treatment for her periprosthetic infection. Ultimately she may require revision hip arthroplasty. Because of extensive retained cement she may need to go to a larger referral center. Infectious Disease at [facility] has been consulted.
[2022-10-27 20:00] VITALS: BP 103/73; PULSE 85; RESP 18; TEMP 36.3; O2SAT 97; O2SAT 98
[2022-10-27] MEDS: rifAMPin 300 MG CAPSULE 600 MG PO (21:21)
[2022-10-27] MEDS: PIPERACILLIN/TAZO 4.5 GM in SODIUM CHLORIDE 0.9% 100 ML IV (21:21)
[2022-10-27] MEDS: SODIUM CHLORIDE 0.9% FLUSH 10 ML IV (21:22)
[2022-10-27] MEDS: VANCOMYCIN 1,000 MG/200 ML PIGGYBACK 200 MG IV (22:42)
[2022-10-28] VITALS (7 sets, daily range): BP systolic 91–115; BP diastolic 61–80; PULSE 66–85; RESP 12–19; TEMP 36–36.8; O2SAT 96–100
[2022-10-28] MEDS: PIPERACILLIN/TAZO 3.375 GM in SODIUM CHLORIDE 0.9% 100 ML IV ×3 (02:49→18:24)
[2022-10-28] MEDS: OXYCODONE IR 5 MG TABLET PO ×3 (02:58→20:22)
[2022-10-28] MEDS: METHADONE 10 MG TABLET PO ×4 (05:20→22:30)
[2022-10-28 06:34] LABS: Add Manual Diff / Slide Review NO; Basophils Absolute Auto 100 /uL (0-100); Basophils Percent Auto 0.7 % (0-2); Eosinophils Absolute Auto 500 /uL (0-450); Eosinophils Percent Auto 6.3 % (2-4); Hematocrit 28.7 % (36-46); Hemoglobin 9.5 g/dL (12.0-16.0); Lymphocytes Absolute Auto 1700 /uL (1100-4500); Lymphocytes Percent Auto 20.8 % (25-40); Mean Corpuscular HGB Conc 33.3 % (30-36); Mean Corpuscular Hemoglobin 27.5 PG (26-34); Mean Corpuscular Volume 82.5 fL (80-100); Monocytes Absolute Auto 600 /uL (0-900); Monocytes Percent Auto 7.6 % (3-14); Neutrophils Absolute Auto 5200 /uL (1500-7000); Neutrophils Percent Auto 64.6 % (50-75); Platelet Count 451 X10^3/uL (150-400); Red Blood Cell Count 3.47 X10^6/uL (4.0-5.2)
[2022-10-28 06:42] LABS: BUN Creatinine Ratio 15.6 (6-22); Blood Urea Nitrogen 20 mg/dL (7-17); Calcium 9.6 mg/dL (8.4-10.2); Carbon Dioxide 30 mmol/L (22-32); Chloride 104 mmol/L (98-107); Estimated Glomerular Filt Rate 50 mL/min (>60); Glucose 94 mg/dL (70-100); HEMOLYSIS < 15 (0-50); Potassium 3.9 mmol/L (3.4-5.1); Sodium 140 mmol/L (137-145)
--- NOTE | 2022-10-28 08:04 | PM.PN.1 ---
Subjective Subjective Interval history: Ortho obtained 2cc of cloudy aspirate which is awaiting bacterial PCR. Spoke with ID who recommended dapto + zosyn. EKG with QTc of 434. Patient more awake today and we discussed the plan to wait on fluid culture results to target abx. She agreed with the plan and had no complaints. Exam Vital Signs (past 8 hours): - 10/28/22 03:00 10/28/22 04:00 Temperature 97.8 F Pulse Rate 75 Respiratory Rate 15 Blood Pressure 93/66 Pulse Oximetry 96 97 Oxygen Delivery Method Room Air Oxygen Flow Rate 0 Oxygen Delivery Method Room Air Oxygen Flow Rate 0 Narrative Exam Narrative: GEN: chronically ill appearing, cachectic HEENT: moist mucous membranes, pale conjunctiva PULM: clear bilaterally CV: regular rate and rhythm, no murmurs ABD: soft, nontender, nondistended EXT: warm and well perfused, left hip tender to palpation, no pus noted, incision appears mildly swollen NEURO: alert, awake and oriented Objective Labs 10/28/22 04:54 10/28/22 04:54 Labs: Laboratory Results - last 24 hr 10/26/22 10/27/22 10/28/22 18:16 04:57 04:54 WBC 8.0 RBC 3.47 L Hgb 9.5 L Hct 28.7 L MCV 82.5 MCH 27.5 MCHC 33.3 RDW 15.0 H Plt Count 451 H Neut % (Auto) 64.6 Lymph % (Auto) 20.8 L [place] % (Auto) 7.6 Eos % (Auto) 6.3 H Baso % (Auto) 0.7 Neut # (Auto) 5200 Lymph # (Auto) 1700 [place] # (Auto) 600 Eos # (Auto) 500 H Baso # (Auto) 100 Sodium Potassium Chloride Carbon Dioxide BUN Creatinine Estimated GFR BUN/Creatinine Ratio Glucose Calcium Iron 20 L Cancelled TIBC Cancelled % Saturation Cancelled Transferrin Cancelled 10/28/22 04:54 WBC RBC Hgb Hct MCV MCH MCHC RDW Plt Count Neut % (Auto) Lymph % (Auto) [place] % (Auto) Eos % (Auto) Baso % (Auto) Neut # (Auto) Lymph # (Auto) [place] # (Auto) Eos # (Auto) Baso # (Auto) Sodium 140 Potassium 3.9 Chloride 104 Carbon Dioxide 30 BUN 20 H Creatinine 1.28 H Estimated GFR 50 L BUN/Creatinine Ratio 15.6 Glucose 94 Calcium 9.6 Iron TIBC % Saturation Transferrin PFSH Medical History Allergies Anemia Ankle pain Anxiety disorder Cachexia Cervical somatic dysfunction Cervical spine pain Chronic back pain Chronic pain due to injury Chronic pain of right knee Colitis Cranial somatic dysfunction CRPS (complex regional pain syndrome type II) Fibromyalgia Fractures GERD (gastroesophageal reflux disease) GI bleeding Irritable bowel syndrome Lumbar region somatic dysfunction Migraines Osteoarthritis Osteoporosis Pelvic somatic dysfunction Peripheral neuropathy PTSD (post-traumatic stress disorder) Sacral pain Sacral region somatic dysfunction Scoliosis Screening for thyroid disorder Segmental and somatic dysfunction of abdomen and other regions Shoulder pain Somatic dysfunction of lower extremity Thoracic region somatic dysfunction Ulcerative colitis Weight loss, abnormal Surgical History Anesthesia History of bladder surgery Previous back surgery (~1997) Family History Father History of heart disease Stroke Grandfather Cancer Stroke Grandmother Diabetes mellitus Hyperlipidemia Hypertension Stroke Grandfather Cancer Mental health problem Grandmother Cancer Social History household members: family Smoking Status: Never smoker alcohol intake: never Assessment & Plan Assessment & Plan narrative: 1. History of infected left hip -concern with worsening pain, rising esr, and fluid collection that recurrent vs new infection has occurred -ortho deferring abx spacer due to complexity of surgery -2cc cloudy aspirate sent for bacterial PCR to -abx started after aspiration, on zosyn and dapto at 8mg/kg. Will potentially start rifampin later to reduce antimicrobial resistance. -is currently on cipro for at least 1 year of suppressive antibiotics -will need referral to [facility] ID on discharge, will fax referral to Dr. Honey Cooney at [facility] ID 2. Anemia, improved -likely iron deficiency, iron level of 20 -labs showed normal iron levels, but this was drawn after blood transfusion -will need to continue iron supplementation on discharge -could also be secondary to anemia of chronic disease and/or slow blood loss from history of seroma and chronic hip infection -trend hemoglobin daily -guaiac stool check -Hgb improved to 9.7 after 2 units of PRBC -she would like to avoid colonoscopy 3. SHERRILL, improving -creatinine on admission of 1.32, baseline appears 0.8-0.9 -suspect secondary to hypovolemia, and will improve with blood transfusion -continue to trend 4. Severe protein calorie malnutrition -bmi 17.8 -dietitian consult 5. Chronic pain -is on both oxy and methadone -for now just continue oxycodone as she was lethargic on admission -continue home methadone 10mg q6h 6. Anxiety -prn clonazepam is home med CODE: Full Proxy: Mother, Viviana Myers Dispo: Pending hip aspirate fluid PCR results. Likely 2-3 days.
[2022-10-28] MEDS: LIDOCAINE PATCH 1 EACH ADH..PATCH TOP (08:56)
[2022-10-28] MEDS: SODIUM CHLORIDE 0.9% FLUSH 10 ML IV ×2 (09:40→20:46)
[2022-10-28] MEDS: polyethylene glycoL 3350 17 GM POWD.PACK PO (09:46)
--- NOTE | 2022-10-28 10:00 | PM.PN.1 ---
Subjective Subjective Date Patient Seen: 10/28/22 Time Patient Seen: 10:00 Interval history: Complex pt w/ h/o cemented left hip hemiarthroplasty done in [place] in July of this year. Post-op course complicated by hematoma and infection, necessitating a second operation and chronic antibiotics. She presented to the ED here on 10/26/2022 c/o left hip pain and was found to be profoundly anemic. Dr Knott was consulted yesterday d/t hip pain and she aspirated the hip joint; this was sent for PCR. The hospitalist consulted [facility] ID, and she is currently on daptomycin and zosyn. Exam Vital Signs (past 8 hours): - 10/28/22 03:00 10/28/22 04:00 10/28/22 08:00 Temperature 97.8 F 97.9 F Pulse Rate 75 76 Respiratory Rate 15 15 Blood Pressure 93/66 115/75 Pulse Oximetry 96 97 98 Oxygen Delivery Method Room Air Oxygen Flow Rate 0 0 Oxygen Delivery Method Room Air Oxygen Flow Rate 0 Narrative Exam Narrative: Resting comfortably in bed. Incision is well-healed; area under incision is soft and fluctuant. 4/5 hip flexors, quadriceps, hamstrings; 5/5 DF, PF, EHL. Sensation intact throughout LLE; calf soft, compressible, and without palpable cords or masses. Objective Labs 10/28/22 04:54 10/28/22 04:54 Labs: Laboratory Results - last 24 hr 10/26/22 10/27/22 10/28/22 18:16 04:57 04:54 WBC 8.0 RBC 3.47 L Hgb 9.5 L Hct 28.7 L MCV 82.5 MCH 27.5 MCHC 33.3 RDW 15.0 H Plt Count 451 H Neut % (Auto) 64.6 Lymph % (Auto) 20.8 L [place] % (Auto) 7.6 Eos % (Auto) 6.3 H Baso % (Auto) 0.7 Neut # (Auto) 5200 Lymph # (Auto) 1700 [place] # (Auto) 600 Eos # (Auto) 500 H Baso # (Auto) 100 Sodium Potassium Chloride Carbon Dioxide BUN Creatinine Estimated GFR BUN/Creatinine Ratio Glucose Calcium Iron 20 L Cancelled TIBC Cancelled % Saturation Cancelled Transferrin Cancelled 10/28/22 04:54 WBC RBC Hgb Hct MCV MCH MCHC RDW Plt Count Neut % (Auto) Lymph % (Auto) [place] % (Auto) Eos % (Auto) Baso % (Auto) Neut # (Auto) Lymph # (Auto) [place] # (Auto) Eos # (Auto) Baso # (Auto) Sodium 140 Potassium 3.9 Chloride 104 Carbon Dioxide 30 BUN 20 H Creatinine 1.28 H Estimated GFR 50 L BUN/Creatinine Ratio 15.6 Glucose 94 Calcium 9.6 Iron TIBC % Saturation Transferrin PFSH Medical History Allergies Anemia Ankle pain Anxiety disorder Cachexia Cervical somatic dysfunction Cervical spine pain Chronic back pain Chronic pain due to injury Chronic pain of right knee Colitis Cranial somatic dysfunction CRPS (complex regional pain syndrome type II) Fibromyalgia Fractures GERD (gastroesophageal reflux disease) GI bleeding Irritable bowel syndrome Lumbar region somatic dysfunction Migraines Osteoarthritis Osteoporosis Pelvic somatic dysfunction Peripheral neuropathy PTSD (post-traumatic stress disorder) Sacral pain Sacral region somatic dysfunction Scoliosis Screening for thyroid disorder Segmental and somatic dysfunction of abdomen and other regions Shoulder pain Somatic dysfunction of lower extremity Thoracic region somatic dysfunction Ulcerative colitis Weight loss, abnormal Surgical History Anesthesia History of bladder surgery Previous back surgery (~1997) Family History Father History of heart disease Stroke Grandfather Cancer Stroke Grandmother Diabetes mellitus Hyperlipidemia Hypertension Stroke Grandfather Cancer Mental health problem Grandmother Cancer Social History household members: family Smoking Status: Never smoker alcohol intake: never Assessment & Plan Assessment and plan (1) Infection of prosthetic total hip joint: Status: Acute Plan: Will continue to follow w/ hospitalist service for final cultures. if surgical intervention is ultimately required, she may need to be referred to a larger center in order to have cement completely removed. (2) Anemia: Status: Acute
[2022-10-28] MEDS: SENNOSIDES 8.6 MG TABLET PO (20:19)
[2022-10-29] MEDS: SODIUM CHLORIDE 0.9% FLUSH 10 ML IV ×3 (01:34→06:37)
[2022-10-29] MEDS: PIPERACILLIN/TAZO 3.375 GM in SODIUM CHLORIDE 0.9% 100 ML IV ×2 (01:35→10:49)
[2022-10-29] MEDS: OXYCODONE IR 5 MG TABLET PO ×4 (01:48→19:43)
[2022-10-29 02:00] VITALS: BP 112/81; PULSE 87; RESP 18; TEMP 36.4; O2SAT 96
[2022-10-29] MEDS: METHADONE 10 MG TABLET PO ×4 (04:34→22:53)
[2022-10-29 04:52] LABS: Add Manual Diff / Slide Review NO; Basophils Absolute Auto 100 /uL (0-100); Basophils Percent Auto 0.6 % (0-2); Eosinophils Absolute Auto 800 /uL (0-450); Eosinophils Percent Auto 7.9 % (2-4); Hematocrit 30.4 % (36-46); Hemoglobin 10.1 g/dL (12.0-16.0); Lymphocytes Absolute Auto 1500 /uL (1100-4500); Lymphocytes Percent Auto 15.2 % (25-40); Mean Corpuscular HGB Conc 33.4 % (30-36); Mean Corpuscular Hemoglobin 27.3 PG (26-34); Mean Corpuscular Volume 81.9 fL (80-100); Monocytes Absolute Auto 600 /uL (0-900); Monocytes Percent Auto 6.1 % (3-14); Neutrophils Absolute Auto 6800 /uL (1500-7000); Neutrophils Percent Auto 70.2 % (50-75); Platelet Count 486 X10^3/uL (150-400); Red Blood Cell Count 3.71 X10^6/uL (4.0-5.2); Red Cell Distribution Width 15.7 % (11.6-14.8); White Blood Cell Count 9.7 X10^3/uL (4.5-11.0)
[2022-10-29 05:03] LABS: BUN Creatinine Ratio 16.8 (6-22); Blood Urea Nitrogen 21 mg/dL (7-17); Calcium 9.5 mg/dL (8.4-10.2); Carbon Dioxide 27 mmol/L (22-32); Chloride 102 mmol/L (98-107); Estimated Glomerular Filt Rate 52 mL/min (>60); Glucose 107 mg/dL (70-100); HEMOLYSIS < 15 (0-50); Potassium 3.9 mmol/L (3.4-5.1); Sodium 139 mmol/L (137-145)
[2022-10-29 05:16] LABS: Erythrocyte Sedimentation Rate 68 MM/HR (0-20)
[2022-10-29 05:18] LABS: C-Reactive Protein Quant 3.2 mg/dL (<1.0)
[2022-10-29] MEDS: SODIUM CHLORIDE 0.9% 1,000 ML 100 ML IV (06:37)
[2022-10-29 08:00] VITALS: BP 125/74; PULSE 85; RESP 16; TEMP 36.7; O2SAT 95
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
--- NOTE | 2022-10-29 08:07 | P.PN_ITS ---
Subjective Subjective Date Patient Seen: 10/29/22 Time Patient Seen: 08:07 Interval history: Continue to await PCR results. Pt resting comfortably in bed, no needs at this time. Exam Vital Signs (past 8 hours): - 10/29/22 02:00 10/29/22 08:00 Temperature 97.5 F L 98.1 F Pulse Rate 87 85 Respiratory Rate 18 16 Blood Pressure 112/81 125/74 Pulse Oximetry 96 95 Oxygen Flow Rate 0 Oxygen Delivery Method Room Air Oxygen Flow Rate 0 Objective Labs 10/29/22 04:34 10/29/22 04:34 Labs: Laboratory Results - last 24 hr 10/29/22 10/29/22 10/29/22 04:34 04:34 04:34 WBC 9.7 RBC 3.71 L Hgb 10.1 L Hct 30.4 L MCV 81.9 MCH 27.3 MCHC 33.4 RDW 15.7 H Plt Count 486 H Neut % (Auto) 70.2 Lymph % (Auto) 15.[address] [place] % (Auto) 6.1 Eos % (Auto) 7.9 H Baso % (Auto) 0.6 Neut # (Auto) 6800 Lymph # (Auto) 1500 [place] # (Auto) 600 Eos # (Auto) 800 H Baso # (Auto) 100 ESR 68 H Sodium Potassium Chloride Carbon Dioxide BUN Creatinine Estimated GFR BUN/Creatinine Ratio Glucose Calcium C-Reactive Protein 3.2 H 10/29/22 04:34 WBC RBC Hgb Hct MCV MCH MCHC RDW Plt Count Neut % (Auto) Lymph % (Auto) [place] % (Auto) Eos % (Auto) Baso % (Auto) Neut # (Auto) Lymph # (Auto) [place] # (Auto) Eos # (Auto) Baso # (Auto) ESR Sodium 139 Potassium 3.9 Chloride 102 Carbon Dioxide 27 BUN 21 H Creatinine 1.25 H Estimated GFR 52 L BUN/Creatinine Ratio 16.8 Glucose 107 H Calcium 9.5 C-Reactive Protein PFS Medical History Allergies Anemia Ankle pain Anxiety disorder Cachexia Cervical somatic dysfunction Cervical spine pain Chronic back pain Chronic pain due to injury Chronic pain of right knee Colitis Cranial somatic dysfunction CRPS (complex regional pain syndrome type II) Fibromyalgia Fractures GERD (gastroesophageal reflux disease) GI bleeding Irritable bowel syndrome Lumbar region somatic dysfunction Migraines Osteoarthritis Osteoporosis Pelvic somatic dysfunction Peripheral neuropathy PTSD (post-traumatic stress disorder) Sacral pain Sacral region somatic dysfunction Scoliosis Screening for thyroid disorder Segmental and somatic dysfunction of abdomen and other regions Shoulder pain Somatic dysfunction of lower extremity Thoracic region somatic dysfunction Ulcerative colitis Weight loss, abnormal Surgical History Anesthesia History of bladder surgery Previous back surgery (~1997) Family History Father History of heart disease Stroke Grandfather Cancer Stroke Grandmother Diabetes mellitus Hyperlipidemia Hypertension Stroke Grandfather Cancer Mental health problem Grandmother Cancer Social History household members: family Smoking Status: Never smoker alcohol intake: never Assessment & Plan Assessment and plan (1) Infection of prosthetic total hip joint: Status: Acute Plan: Continue to await PCR results. Pt currently on dapto and zosyn, [facility] ID on board. (2) Anemia: Status: Acute Plan: H/H improving.
[2022-10-29] MEDS: LIDOCAINE PATCH 1 EACH ADH..PATCH TOP (08:24)
[2022-10-29] MEDS: polyethylene glycoL 3350 17 GM POWD.PACK PO (08:24)
[2022-10-29] MEDS: ONDANSETRON 4 MG/2 ML INJ IV (09:11)
[2022-10-29] MEDS: clonazePAM 0.5 MG TABLET 1 MG PO (10:00)
--- NOTE | 2022-10-29 12:40 | CM.DPNOTE ---
DCP Note Dr Huff requesting referral for home infusion- 400mg IV Dapto Q24hrs until December 08. Dr Cooney to follow. Patient is not a surgical candidate at this time PICC line insertion scheduled for tomorrow 10.30.22 Patient eager to return home and agreeable to plan Placed call to [facility] at [facility] [employer]. ALMA Schneider, kindly faxed this referral to include written Rx for abx Patient's [facility] expected to be good coverage, [facility] running all insurance now and [facility] plans to call patient and this [employer] w/updates re coverage, confirmation of plan etc Plan: Discharge likely home w/mom tomorrow, after PICC in and morning abx dose is completed; [facility] to provide IV abx w/Dr Cooney, Infectious Disease MD to follow these orders Following closely for coordination of DCP JW
[2022-10-29 14:00] VITALS: BP 127/83; PULSE 85; RESP 16; TEMP 36.6; O2SAT 96
[2022-10-29 20:00] VITALS: BP 122/81; PULSE 92; RESP 18; TEMP 36.4; O2SAT 97
[2022-10-30] MEDS: OXYCODONE IR 5 MG TABLET PO ×2 (04:03→10:13)
[2022-10-30] MEDS: METHADONE 10 MG TABLET PO ×2 (04:21→10:55)
[2022-10-30 06:00] LABS: Add Manual Diff / Slide Review NO; Basophils Absolute Auto 100 /uL (0-100); Eosinophils Absolute Auto 800 /uL (0-450); Eosinophils Percent Auto 11.1 % (2-4); Hemoglobin 9.6 g/dL (12.0-16.0); Lymphocytes Absolute Auto 1500 /uL (1100-4500); Lymphocytes Percent Auto 20.3 % (25-40); Mean Corpuscular HGB Conc 33.1 % (30-36); Mean Corpuscular Hemoglobin 27.8 PG (26-34); Mean Corpuscular Volume 83.8 fL (80-100); Monocytes Absolute Auto 400 /uL (0-900); Monocytes Percent Auto 6.1 % (3-14); Neutrophils Absolute Auto 4400 /uL (1500-7000); Neutrophils Percent Auto 61.5 % (50-75); Platelet Count 455 X10^3/uL (150-400); Red Blood Cell Count 3.46 X10^6/uL (4.0-5.2); Red Cell Distribution Width 15.5 % (11.6-14.8); White Blood Cell Count 7.2 X10^3/uL (4.5-11.0)
[2022-10-30 06:11] LABS: BUN Creatinine Ratio 14.3 (6-22); Blood Urea Nitrogen 14 mg/dL (7-17); Calcium 9.6 mg/dL (8.4-10.2); Carbon Dioxide 25 mmol/L (22-32); Chloride 106 mmol/L (98-107); Estimated Glomerular Filt Rate > 60 mL/min (>60); Glucose 129 mg/dL (70-100); HEMOLYSIS < 15 (0-50); Potassium 3.6 mmol/L (3.4-5.1); Sodium 140 mmol/L (137-145)
--- NOTE | 2022-10-30 07:08 | PM.PN.1 ---
Subjective Subjective Date Patient Seen: 10/30/22 Time Patient Seen: 07:09 Interval history: Resting in bed, says she is miserable but has no requests at this time. Continue to await PCR results. Exam Vital Signs (past 8 hours): Oxygen Delivery Method Room Air Oxygen Flow Rate 0 Narrative Exam Narrative: 5/5 strength in hip flexors, quadriceps, hamstrings, DF, PF, EHL on left. Sensation to light touch intact throughout LLE. Calf soft, compressible, nontender and without palpable cords or masses. Area overlying hip is soft, nontender. Objective Labs 10/30/22 05:40 10/30/22 05:40 Labs: Laboratory Results - last 24 hr 10/30/22 10/30/22 05:40 05:40 WBC 7.2 RBC 3.46 L Hgb 9.6 L Hct 29.0 L MCV 83.8 MCH 27.8 MCHC 33.1 RDW 15.5 H Plt Count 455 H Neut % (Auto) 61.5 Lymph % (Auto) 20.3 L [place] % (Auto) 6.1 Eos % (Auto) 11.1 H Baso % (Auto) 1.0 Neut # (Auto) 4400 Lymph # (Auto) 1500 [place] # (Auto) 400 Eos # (Auto) 800 H Baso # (Auto) 100 Sodium 140 Potassium 3.6 Chloride 106 Carbon Dioxide 25 BUN 14 Creatinine 0.98 Estimated GFR > 60 BUN/Creatinine Ratio 14.3 Glucose 129 H Calcium 9.6 PFSH Medical History Allergies Anemia Ankle pain Anxiety disorder Cachexia Cervical somatic dysfunction Cervical spine pain Chronic back pain Chronic pain due to injury Chronic pain of right knee Colitis Cranial somatic dysfunction CRPS (complex regional pain syndrome type II) Fibromyalgia Fractures GERD (gastroesophageal reflux disease) GI bleeding Irritable bowel syndrome Lumbar region somatic dysfunction Migraines Osteoarthritis Osteoporosis Pelvic somatic dysfunction Peripheral neuropathy PTSD (post-traumatic stress disorder) Sacral pain Sacral region somatic dysfunction Scoliosis Screening for thyroid disorder Segmental and somatic dysfunction of abdomen and other regions Shoulder pain Somatic dysfunction of lower extremity Thoracic region somatic dysfunction Ulcerative colitis Weight loss, abnormal Surgical History Anesthesia History of bladder surgery Previous back surgery (~1997) Family History Father History of heart disease Stroke Grandfather Cancer Stroke Grandmother Diabetes mellitus Hyperlipidemia Hypertension Stroke Grandfather Cancer Mental health problem Grandmother Cancer Social History household members: family Smoking Status: Never smoker alcohol intake: never Assessment & Plan Assessment and plan (1) Infection of prosthetic total hip joint: Status: Acute Plan Continue to await PCR results and subsequent ID recommendations. If surgery recommended, pt will likely need to go to a larger center for total cement removal.
--- NOTE | 2022-10-30 08:40 | DI.RAD.S_ITS ---
PROCEDURE: XR CHEST FOR PICC 1V INDICATIONS: line placement [facility] 17[facility]10[facility], 10/18/2015, 12:18. FINDINGS: PICC was placed by the intravenous therapy team from the left side. Fluoroscopic spot film demonstrates the tip of PICC projecting to the area of mid SVC. IMPRESSION: Tip of PICC projects to the area of mid SVC. Dictated by: Jakob Ramirez M.D. on 10/30/2022 at 8:54 Approved by: Jakob Ramirez M.D. on 10/30/2022 at 8:55
[2022-10-30 09:49] VITALS: BP 126/86; PULSE 84; RESP 18; TEMP 36.6; O2SAT 97
[2022-10-30] MEDS: polyethylene glycoL 3350 17 GM POWD.PACK PO (10:13)
[2022-10-30] MEDS: LIDOCAINE PATCH 1 EACH ADH..PATCH TOP (10:13)
[2022-10-30] MEDS: SODIUM CHLORIDE 0.9% FLUSH 10 ML IV (10:21)
--- NOTE | 2022-10-30 10:58 | PC.NURSE ---
Patient given her oxycodone and methadone this morning. New lidocaine patch placed on her l.buttock/hip area. Patient had a l.hip replacement 2 months ago and it has become infected. Area is red and raised mid incisional site. She is getting iv antibiotics. into see patient and is going to read more up on her hx before she is discharged.
--- NOTE | 2022-10-30 13:46 | CM.DPNOTE ---
DC Note Discharge today, home w/family. Patient eager to return home. PICC line placed this morning Confirmed with Caleb at [facility] that sewer hand will meet with patient tomorrow afternoon in her home and will follow for patient's Q24 IV Dapto 400 mg until December 08. Patient's [employer] is covering the cost of this abx 100% Dr Cooney will be following labs and abx order outpatient ALMA Schneider, kindly agreed to fax patient's PICC insertion assessment note and DC Summary to [facility] once completed Plan: Discharge home w.family, home infusion through [facility], close outpatient follow up JW
--- NOTE | 2022-10-30 13:49 | P.DS_ITS ---
History of Present Illness History of Present Illness Chief complaint: lt leg injury Narrative: Per H&P: Ms. Myers is a 52W with PMH chronic pain, osteoporosis, ulcerative colitis and recently complicated post op course after breaking her hip. She has been in [place] until recently. Apparently in July she had a fall and had a left femoral neck fracture. She had a left hemiarthroplasty performed. Afterwards she was noted to have dehiscence, a large seroma that ruptured. She needed to return back to the OR in early August and replacement of femoral head and wound vac placement. She has cultures done at that time which ultimately grew back staph epidermidis. She ultimately was on daptomycin for it appears 8 weeks until October 01. After that she was ordered for suppressive antibiotics for a year, initi ally with doxycycline, but she had symptoms to this, and was switched to ciprofloxacin. She was followed by ID and ortho in [facility], she was found to have anemia, and has a history of iron deficiency. She decided to return to [place] recently. Over the last few days she has noted worsening left hip pain which brought her to the hospital. She feels weak. She has no fevers/chills. Her last ESR on her labs appeared to be in the 80s in September 30, 2022. She has noted no GI bleeding, black stools, or vomiting of blood. She has had many colonoscopies before, and really wants to avoid undergoing one here. In the ED workup was done, vitals notable for afebrile, heart rate 80s-90s, respiratoy rate 16, blood pressure 100s-110s/70s, sats 97% on room air. Labs reviewed by me and notable for WBC 8.9, hgb 9.4, plts 210. Na 136, k 3.9. BUN 17, creatinine 1.32. Procal 0.09. Chest xray reviewed by me and negative for any acute process. Hip xray with left hip arthroplasty. CT of left hip shows edematous soft tissue tract in lateral thigh extending to proximal femur. Region of fluid is reported at 1.4x5.2 cm. ID was consulted and recommended attempting to sample fluid prior to antibiotics and then after could empirically start daptomycin and ceftriaxone, they recommended culture be se sent for bacterial pcr to . Ortho was consulted to assist in fluid sample collection. She was ordered for blood transfusion and admitted for further treatment. Discharge Providers Provider Date of admission: 10/26/22 21:49 Discharge Date: 10/30/22 Primary care physician: Cleveland Chavez DO Consults: 10/26/22 23:10 Consult to Orthopedic Surgery Routine Comment: Consulting Provider: Dayana Knott Reason for consultation: hip infection Has provider been notified: Yes Discharge provider: Fina Cho MD Summary Hospital Course Discharge Diagnosis: 1. Left prosthetic hip infection 2. Anemia 3. SHERRILL 4. Severe protein calorie malnutrition 5. Complex regional pain syndrome Hospital Course: Patient sustained a left femoral neck fracture after a fall in July of this year. She underwent a left hemiarthroplasty. Postoperative course was complicated by wound dehiscence and rupture as well as a large seroma. She ultimately grew staph epidermidis from the joint and underwent femoral head replacement, wound VAC placement, and 8 weeks of daptomycin, which completed in September. He returned from [place] to [place] to further rehab. She presented here with increasing pain and symptoms. Orthopedic surgery was consulted and aspirated fluid from the joint, which has been sent to the [facility] for bacterial PCR. She was placed on IV antibiotics at the recommendations of Infectious Disease. She will continue 6 weeks of IV daptomycin with close follow-up with Infectious Disease and Orthopedic surgery as well. She does report her wound is somewhat more painful today compared with yesterday and perhaps more erythematous. With her permission I took a photo without identifying information, and reviewed of the wound with both Dr. Huff who saw the patient yesterday and the orthopedic surgery service. The orthopedic service felt patient could still discharge home with follow-up as scheduled with Infectious Disease next week and with the orthopedic team in 1-2 weeks. Patient is discharging in stable condition. Status at Discharge Cognitive/behavioral status at discharge: at baseline, oriented Overall status at discharge: patient is not back to baseline Time Spent with Patient Time spent: Greater than 30 minutes (40 minutes spent coordinating d/c) Exam Vital Signs (past 8 hours): - 10/30/22 09:49 Temperature 97.9 F Pulse Rate 84 Respiratory Rate 18 Blood Pressure 126/86 Pulse Oximetry 97 Oxygen Flow Rate 0 Oxygen Delivery Method Room Air Oxygen Flow Rate 0 Narrative Exam Narrative: GEN: Alert and oriented x 3, NAD, appears chronically ill HEENT:NC, Face symmetric CHEST: Respiratory excursions symmetric, CTAB CV: RRR, no M/R/G ABD: Soft, NT/ND, BT present in all 4 quadrants, no organomegaly or masses EXTR: warm, well perfused, no C/C/E, left hip superior incision appears unremarkable, inferior incision has some surrounding erythema, there is a small area of fluctuance in an area where the wound bed is depressed/a prior defect is present. The fluid pocket is not under pressure and the scar appears intact overlying the area SKIN: warm and dry, no rash NEURO: Alert and oriented x 3, nonfocal Objective Labs 10/30/22 05:40 10/30/22 05:40 Labs: Laboratory Results - last 24 hr 10/30/22 10/30/22 05:40 05:40 WBC 7.2 RBC 3.46 L Hgb 9.6 L Hct 29.0 L MCV 83.8 MCH 27.8 MCHC 33.1 RDW 15.5 H Plt Count 455 H Neut % (Auto) 61.5 Lymph % (Auto) 20.3 L [place] % (Auto) 6.1 Eos % (Auto) 11.1 H Baso % (Auto) 1.0 Neut # (Auto) 4400 Lymph # (Auto) 1500 [place] # (Auto) 400 Eos # (Auto) 800 H Baso # (Auto) 100 Sodium 140 Potassium 3.6 Chloride 106 Carbon Dioxide 25 BUN 14 Creatinine 0.98 Estimated GFR > 60 BUN/Creatinine Ratio 14.3 Glucose 129 H Calcium 9.6 PFSH Medical History Allergies Anemia Ankle pain Anxiety disorder Cachexia Cervical somatic dysfunction Cervical spine pain Chronic back pain Chronic pain due to injury Chronic pain of right knee Colitis Cranial somatic dysfunction CRPS (complex regional pain syndrome type II) Fibromyalgia Fractures GERD (gastroesophageal reflux disease) GI bleeding Irritable bowel syndrome Lumbar region somatic dysfunction Migraines Osteoarthritis Osteoporosis Pelvic somatic dysfunction Peripheral neuropathy PTSD (post-traumatic stress disorder) Sacral pain Sacral region somatic dysfunction Scoliosis Screening for thyroid disorder Segmental and somatic dysfunction of abdomen and other regions Shoulder pain Somatic dysfunction of lower extremity Thoracic region somatic dysfunction Ulcerative colitis Weight loss, abnormal Surgical History Anesthesia History of bladder surgery Previous back surgery (~1997) Family History Father History of heart disease Stroke Grandfather Cancer Stroke Grandmother Diabetes mellitus Hyperlipidemia Hypertension Stroke Grandfather Cancer Mental health problem Grandmother Cancer Social History household members: family Smoking Status: Never smoker alcohol intake: never Discharge Plan Discharge Plan Patient Disposition: Home Provider Discharge Comment: [facility] to provide IV daptomycin. Daptomycin started as an inpatient 10/28/22 with an expected outpatient completion date of 12/08/22. F/u w/Dr. Honey Cooney, Infectious Disease at [facility] next week. Follow-up w/Dr. Knott in 1-2 weeks. Return to the ED for fevers, worsening hip pain, or inability to hold down food/fluids. Routine PICC line care. Discharge orders & Medications Prescriptions: New daptomycin 500 mg Recon Soln 400 mg IV Q24H 42 Days Qty: 1 0RF Rx Instructions: Last dose to be given on 12/08/22. Continued lidocaine 5 % adhesive patch,medicated 1 patch topical DAILY Qty: 30 3RF Rx Instructions: leave on most painful area for up to 12 hrs cyclobenzaprine 10 mg tablet See Rx Instructions .ROUTE .COMPLEX Qty: 90 5RF Dose Instruction: TAKE ONE TABLET BY MOUTH THREE TIMES DAILY NEEDED FOR MUSCLE SPASMS Rx Instructions: TAKE ONE TABLET BY MOUTH THREE TIMES DAILY NEEDED FOR MUSCLE SPASMS methadone 10 mg tablet See Rx Instructions .ROUTE .COMPLEX Qty: 120 0RF Rx Instructions: Take 1 tablet by mouth every 6-8 hours (DME) Massage therapy See Rx Instructions .Route .MEDSUPPLY Qty: 6 0RF Rx Instructions: For as many appointments that her insurance allows. (DME) Disabled Parking Permit See Rx Instructions .Route .MEDSUPPLY Qty: 1 0RF Rx Instructions: As directed (DME) Disabled Parking See Rx Instructions .Route .MEDSUPPLY Qty: 1 0RF Rx Instructions: I find this patient to be medically disabled and qualified for Disabled Parking as indicated, and signed, o the Accompanying Disabled Parking Appl ication for individuals. polyethylene glycol 3350 [Miralax] 17 gram Powder In Packet 17 g PO DAILY clonazepam 1 mg Tablet 1 mg PO TID aspirin 81 mg Tablet,Delayed Release (Dr/Ec) 81 mg PO BID calcium carbonate 500 mg calcium (1,250 mg) Tablet,Chewable 1,500 mg PO TID cholecalciferol (vitamin D3) 125 mcg (5,000 unit) Capsule 125 mcg PO DAILY oxycodone 5 mg Tablet 5 mg PO Q6H PRN (Reason: Pain (Scale Score 7-10)) ferrous gluconate 324 mg (37.5 mg iron) Tablet 324 mg PO BID Follow up/Referrals: Dayana Knott MD [Physician] - 1 Week (F/u prosthetic hip infection) Cleveland Chavez DO [Primary Care Provider] - Other Ambulatory Orders: Referral to: (Schedule) Timeframe: 1 Week Location: Outside Services Ordered By: Evert Huff Diet/Activity/Treatments Diet: Diet as Tolerated and Regular Activity: As tolerated Oxygen: N/A Visit Report/Discharge Packet Instructions: Anemia, DI for Prescription Opioid Use, Daptomycin Injection Stand Alone Forms: Patient Portal/API Discharge Data Primary Care Provider: Cleveland Chavez Discharges patient from system. Discharge Date/Time: 10/30/22 13:19
== END 2022-10-30 13:19 | disposition home or self-care (01) | DRG 559 ==
LOC: ED 18:02 → AC 21:50
PROVIDERS: Emergency Medicine; Orthopaedic Surgery; Student in an Organized Health Care Education/Training Program; Admitting Provider Internal Medicine; Emergency Provider Emergency Medicine; PCP Family Medicine; Referring Provider Emergency Medicine; Visit Provider Internal Medicine
DX: T84.52XA Infection and inflammatory reaction due to internal left hip prosthesis, initial encounter (principal); E43 Unspecified severe protein-calorie malnutrition; N17.9 Acute kidney failure, unspecified; Z68.1 Body mass index [BMI] 19.9 or less, adult; G89.29 Other chronic pain; F41.9 Anxiety disorder, unspecified; D64.9 Anemia, unspecified; Z20.822 Contact with and (suspected) exposure to COVID-19
CPT/HCPCS: 36415; 36430; 36573; 71045; 73502; 73701; 80048; 80053; 82550; 82607; 82746; 83540; 83605; 83615; 83690; 84145; 84484; 85025; 85045; 85610; 85651; 85730; 86140; 86850; 86900; 86901; 87040; 87801; 93005; 93010; 96374; 96375; 99284; P9016; J0878; J1170; J2405; J2543; Q9967

== ENCOUNTER 2023-02-11 15:52 | Emergency (ER) | payer OTHER, MEDICAID, SELFPAY ==
[2022-10-26 23:35] VITALS: BMI 17.7
[2023-02-11 16:00] VITALS: BP 109/75; PULSE 84; RESP 16; TEMP 36.5; O2SAT 98; BMI 16.7
--- NOTE | 2023-02-11 16:08 | DI.RAD.S_ITS ---
PROCEDURE: XR CHEST 1V INDICATIONS: PICC placement TECHNIQUE: One view of the chest was acquired. COMPARISON: [facility], CR, XR CHEST 1 VIEW, 12/04/2022, 11:29. [facility], CR, PICC LINE INSERTION, 12/11/2022, 13:28. [facility], CR, XR CHEST FOR PICC 1V, 10/30/2022, 8:50. [facility], CR, XR CHEST 1V, 10/26/2022, 17:10. FINDINGS: Surgical changes and devices: A right PICC terminates in the mid SVC. Lungs and pleura: Lungs are clear. No pleural effusions or pneumothorax. Mediastinum: Mediastinal contours appear normal. Heart size is normal. Bones and chest wall: No suspicious bony lesions. Overlying soft tissues appear unremarkable. IMPRESSION: Right PICC terminates in the mid SVC. Dictated by: Oscar Falcon M.D. on 02/11/2023 at 16:50 Approved by: Oscar Falcon M.D. on 02/11/2023 at 16:52
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
--- NOTE | 2023-02-11 18:57 | PC.NURSE ---
PICC flushed without issue
[2023-02-11 19:04] VITALS: BP 97/59; PULSE 82; RESP 16; O2SAT 99
== END 2023-02-11 19:05 | disposition home or self-care (01) ==
PROVIDERS: Emergency Provider Emergency Medicine; PCP Family Medicine
DX: T82.9XXA Unspecified complication of cardiac and vascular prosthetic device, implant and graft, initial encounter (principal)
CPT/HCPCS: 71045; 99281; 99283